=== PATIENT | female | born 1995 | race Caucasian/White ===

== ENCOUNTER 2018-05-01 13:21 | Emergency (ER) | payer OTHER ==
[2018-05-01] MEDS ORDERED: SODIUM CHLORIDE 0.9% 500 ML 500 ML IV STA (14:14)
[2018-05-01] MEDS ORDERED: KETOROLAC 30 MG/ML 1 ML VIAL IVP STA (14:14)
[2018-05-01 14:52] LABS: Basophils % (A) 0 %; Eosinophils # (A) 0.1 k/uL (0-0.7); Eosinophils % (A) 1 %; HCT 41.3 % (34.0-46.0); HGB 13.2 gm/dL (11.4-16.0); Lymphocytes % (A) 29 %; MCH 28.7 pg (25.0-35.0); MCHC 32.1 g/dL (31.0-37.0); MCV 89.5 fL (80.0-100.0); Mean Platelet Volume 7.6; Monocytes # (A) 0.3 k/uL (0-1.0); Monocytes % (A) 4 %; Neutrophils # (A) 4.6 k/uL (1.3-7.7); Neutrophils % (A) 65 %; Platelet Count 280 k/uL (150-450); RBC 4.61 m/uL (3.80-5.40); RDW 13.7 % (11.5-15.5); WBC 7.1 k/uL (3.8-10.6)
--- NOTE | 2018-05-01 14:56 | XR ---
EXAMINATION TYPE: XR chest 2V DATE OF EXAM: 05/01/2018 COMPARISON: NONE HISTORY: Chest pain TECHNIQUE: Frontal and lateral views of the chest are obtained. FINDINGS: There is no focal air space opacity. No evidence for pneumothorax. No pleural effusion. The cardiac silhouette size is within normal limits. The osseous structures are grossly intact. IMPRESSION: 1. No acute cardiopulmonary process.
[2018-05-01 14:58] LABS: Appearance,Urine Clear (Clear); Bilirubin,Urine Negative (Negative); Blood,Urine Negative (Negative); Color,Urine Yellow; Glucose,Urine (UA) Negative (Negative); Ketones,Urine Negative (Negative); Leukocyte Esterase,Urine Negative (Negative); Nitrite,Urine Negative (Negative); PH, Urine 6.5 (5.0-8.0); Protein,Urine Trace (Negative); Urobilinogen,Urine <2.0 mg/dL (<2.0)
[2018-05-01 15:01] LABS: ALT 32 U/L (9-52); AST 16 U/L (14-36); Albumin 4.4 g/dL (3.5-5.0); Alkaline Phosphatase 69 U/L (38-126); Amylase 38 U/L (30-110); Anion Gap 9 mmol/L; Blood Urea Nitrogen 14 mg/dL (7-17); Calcium 9.5 mg/dL (8.4-10.2); Carbon Dioxide 24 mmol/L (22-30); Chloride 109 mmol/L (98-107); Glucose 114 mg/dL (74-99); Lipase 60 U/L (23-300); Magnesium 1.9 mg/dL (1.6-2.3); Potassium 4.2 mmol/L (3.5-5.1); Sodium 142 mmol/L (137-145); Total Bilirubin 0.5 mg/dL (0.2-1.3); Total Protein 7.2 g/dL (6.3-8.2)
[2018-05-01 15:16] LABS: D-Dimer 0.18 mg/L FEU (<0.60); Partial Thromboplastin Time 26.3 sec (22.0-30.0); Prothrombin Time 10.8 sec (9.0-12.0)
[2018-05-01] MEDS ORDERED: IPRATROPIUM-ALBUTEROL 3 ML NEB INHALATION STA (15:50)
--- NOTE | 2018-05-01 16:16 | ED ---
General Adult HPI - General Chief complaint: Vaginal Bleeding Stated complaint: Chest pain,SOB, IUD-blood when wiping Time Seen by Provider: 05/01/18 13:43 Source: patient, RN notes reviewed Mode of arrival: wheelchair Limitations: no limitations - History of Present Illness Initial comments: 23-year-old female with out any significant past medical history presents to the emergency department for multiple complaints. Patient states she has had chest pain with shortness of breath for the past week. Patient states shortness of breath seems to worsen with exertion. She states chest pain is worse when taking a deep breath it feels like a stabbing pain. Patient states this is on the right side of the chest. Patient has had similar symptoms before and received an albuterol inhaler which helped her symptoms. She denies history of asthma. She does admit to smoking. Patient admits she has had a productive cough for about the past week as well. She denies fevers or chills. She denies congestion or sore throat patient also complaining of vaginal bleeding 2 weeks. Patient states she has an IUD placed and normally does not have bleeding. Patient denies any pain or cramping. Patient has no other complaints at this time including abdominal pain, nausea or vomiting, headache, or visual changes. - Related Data Home Medications Medication Instructions Recorded Confirmed Pseudoephedrine [Sudafed] 60 mg PO Q4H PRN 05/01/18 05/01/18 Previous Rx's Medication Instructions Recorded Albuterol Inhaler [Ventolin Hfa 1 - 2 puff INHALATION Q6HR PRN #1 05/01/18 Inhaler] inhaler predniSONE 50 mg PO DAILY #5 tablet 05/01/18 Allergies Allergy/AdvReac Type Severity Reaction Status Date / Time No Known Allergies Allergy Verified 05/01/18 14:27 Review of Systems ROS Statement: Those systems with pertinent positive or pertinent negative responses have been documented in the HPI. ROS Other: All systems not noted in ROS Statement are negative. Past Medical History Past Medical History: No Reported History History of Any Multi-Drug Resistant Organisms: None Reported Past Surgical History: No Surgical Hx Reported Past Psychological History: Anxiety, Bipolar, Depression Smoking Status: Current every day smoker Past Alcohol Use History: None Reported Past Drug Use History: None Reported General Exam Limitations: no limitations General appearance: alert, in no apparent distress Head exam: Present: atraumatic, normocephalic, normal inspection Eye exam: Present: normal appearance, PERRL, EOMI. Absent: scleral icterus, conjunctival injection, periorbital swelling ENT exam: Present: normal exam, normal oropharynx, mucous membranes moist, TM's normal bilaterally, normal external ear exam Neck exam: Present: normal inspection, full ROM. Absent: tenderness, meningismus, lymphadenopathy Respiratory exam: Present: normal lung sounds bilaterally. Absent: respiratory distress, wheezes, rales, rhonchi, stridor Cardiovascular Exam: Present: regular rate, normal rhythm, normal heart sounds. Absent: systolic murmur, diastolic murmur, rubs, gallop, clicks GI/Abdominal exam: Present: soft, normal bowel sounds. Absent: distended, tenderness, guarding, rebound, rigid External exam: Present: normal external exam. Absent: erythema, swelling, lesions, lacerations, ecchymosis Speculum exam: Present: normal speculum exam, other (IUD strings visualized). Absent: erythema, vaginal discharge, cervical discharge, vaginal bleeding, foreign body, tissue, laceration By manual exam: Present: normal by manual exam. Absent: cervical motion tenderness, adnexal tenderness, adnexal mass, uterine enlargement, uterine tenderness Neurological exam: Present: alert, oriented X3, CN II-XII intact, normal gait Psychiatric exam: Present: normal affect, normal mood Course Vital Signs 05/01/18 13:31 Temperature 98.2 F Pulse Rate 108 H Respiratory 16 Rate Blood Pressure 139/62 O2 Sat by Pulse 97 Oximetry - Reevaluation(s) Reevaluation #1: 05/01/18 16:25 Discussed smoking sensation for greater than 3 minutes EKG Findings - EKG Comments: EKG Findings:: Normal sinus rhythm, ventricular rate 84, DC int 146, QTC 450 Medical Decision Making - Medical Decision Making 23-year-old female without any past medical history presents for multiple complaints. Patient's main complaint is chest pain or shortness of breath. Patient does admit to a cough for the past week which is productive in nature. Patient states the chest pain is pleuritic and on the right side of her chest. Given patient's tachycardia lab work was obtained which showed a normal d-dimer, negative troponin. CBC CMP unremarkable. Chest x-ray negative. Patient was treated with steroid and albuterol inhaler as she states she has had this once in the past and it seemed to help. No history of asthma. Patient is a smoker. She was educated on greater than 3 minutes of smoking cessation. EKG shows a normal sinus rhythm, no evidence of ST elevation. Patient can follow up for this outpatient as it is likely related to cough. Patient was also complaining of vaginal bleeding without any pain. This is been ongoing for 2 weeks. Urine negative, hCG negative. Patient does have an IUD. I did do a pelvic exam and visualized the IUD strings. Patient will follow up with primary care and OB doing an. She will return here if she has any worsening symptoms. - Lab Data Result diagrams: 05/01/18 14:30 05/01/18 14:30 Lab Results 05/01/18 05/01/18 05/01/18 Range/Units 14:30 14:30 14:30 WBC 7.1 (3.8-10.6) k/uL RBC 4.61 (3.80-5.40) m/uL Hgb 13.2 (11.4-16.0) gm/dL Hct 41.3 (34.0-46.0) % MCV 89.5 (80.0-100.0) fL MCH 28.7 (25.0-35.0) pg MCHC 32.1 (31.0-37.0) g/dL RDW 13.7 (11.5-15.5) % Plt Count 280 (150-450) k/uL Neutrophils % 65 % Lymphocytes % 29 % Monocytes % 4 % Eosinophils % 1 % Basophils % 0 % Neutrophils # 4.6 (1.3-7.7) k/uL Lymphocytes # 2.0 (1.0-4.8) k/uL Monocytes # 0.3 (0-1.0) k/uL Eosinophils # 0.1 (0-0.7) k/uL Basophils # 0.0 (0-0.2) k/uL PT 10.8 (9.0-12.0) sec INR 1.0 (<1.2) APTT 26.3 (22.0-30.0) sec D-Dimer 0.18 (<0.60) mg/L FEU Sodium 142 (137-145) mmol/L Potassium 4.2 (3.5-5.1) mmol/L Chloride 109 H (98-107) mmol/L Carbon Dioxide 24 (22-30) mmol/L Anion Gap 9 mmol/L BUN 14 (7-17) mg/dL Creatinine 0.71 (0.52-1.04) mg/dL Est GFR (CKD-EPI)AfAm >90 (>60 ml/min/1.73 sqM) Est GFR (CKD-EPI)NonAf >90 (>60 ml/min/1.73 sqM) Glucose 114 H (74-99) mg/dL Calcium 9.5 (8.4-10.2) mg/dL Magnesium 1.9 (1.6-2.3) mg/dL Total Bilirubin 0.5 (0.2-1.3) mg/dL AST 16 (14-36) U/L ALT 32 (9-52) U/L Alkaline Phosphatase 69 (38-126) U/L Troponin I (0.000-0.034) ng/mL Total Protein 7.2 (6.3-8.2) g/dL Albumin 4.4 (3.5-5.0) g/dL Amylase 38 (30-110) U/L Lipase 60 (23-300) U/L Urine Color Urine Appearance (Clear) Urine pH (5.0-8.0) Ur Specific [place] (1.001-1.035) Urine Protein (Negative) Urine Glucose (UA) (Negative) Urine Ketones (Negative) Urine Blood (Negative) Urine Nitrite (Negative) Urine Bilirubin (Negative) Urine Urobilinogen (<2.0) mg/dL Ur Leukocyte Esterase (Negative) Urine HCG, Qual (Not Detectd) 05/01/18 05/01/18 05/01/18 Range/Units 14:30 14:30 14:30 WBC (3.8-10.6) k/uL RBC (3.80-5.40) m/uL Hgb (11.4-16.0) gm/dL Hct (34.0-46.0) % MCV (80.0-100.0) fL MCH (25.0-35.0) pg MCHC (31.0-37.0) g/dL RDW (11.5-15.5) % Plt Count (150-450) k/uL Neutrophils % % Lymphocytes % % Monocytes % % Eosinophils % % Basophils % % Neutrophils # (1.3-7.7) k/uL Lymphocytes # (1.0-4.8) k/uL Monocytes # (0-1.0) k/uL Eosinophils # (0-0.7) k/uL Basophils # (0-0.2) k/uL PT (9.0-12.0) sec INR (<1.2) APTT (22.0-30.0) sec D-Dimer (<0.60) mg/L FEU Sodium (137-145) mmol/L Potassium (3.5-5.1) mmol/L Chloride (98-107) mmol/L Carbon Dioxide (22-30) mmol/L Anion Gap mmol/L BUN (7-17) mg/dL Creatinine (0.52-1.04) mg/dL Est GFR (CKD-EPI)AfAm (>60 ml/min/1.73 sqM) Est GFR (CKD-EPI)NonAf (>60 ml/min/1.73 sqM) Glucose (74-99) mg/dL Calcium (8.4-10.2) mg/dL Magnesium (1.6-2.3) mg/dL Total Bilirubin (0.2-1.3) mg/dL AST (14-36) U/L ALT (9-52) U/L Alkaline Phosphatase (38-126) U/L Troponin I <0.012 (0.000-0.034) ng/mL Total Protein (6.3-8.2) g/dL Albumin (3.5-5.0) g/dL Amylase (30-110) U/L Lipase (23-300) U/L Urine Color Yellow Urine Appearance Clear (Clear) Urine pH 6.5 (5.0-8.0) Ur Specific [place] 1.020 (1.001-1.035) Urine Protein Trace H (Negative) Urine Glucose (UA) Negative (Negative) Urine Ketones Negative (Negative) Urine Blood Negative (Negative) Urine Nitrite Negative (Negative) Urine Bilirubin Negative (Negative) Urine Urobilinogen <2.0 (<2.0) mg/dL Ur Leukocyte Esterase Negative (Negative) Urine HCG, Qual Not Detected (Not Detectd) Disposition Clinical Impression: Cough, Pleuritic chest pain Disposition: HOME SELF-CARE Condition: Good Instructions (If sedation given, give patient instructions): Acute Bronchitis (ED) Additional Instructions: Please take steroid and use albuterol inhaler as needed. Please follow-up with primary care in 1-2 days. Please return here to the emergency Department if he develop any worsening symptoms. Prescriptions: predniSONE 50 mg PO DAILY #5 tablet Albuterol Inhaler [Ventolin Hfa Inhaler] 1 - 2 puff INHALATION Q6HR PRN #1 inhaler PRN Reason: Shortness Of Breath Is patient prescribed a controlled substance at d/c from ED?: No Referrals: Ana Lopez MD [STAFF PHYSICIAN] - 1-2 days Time of Disposition: 16:15
[2018-05-01 16:35] VITALS: BP 142/82; PULSE 78; RESP 18; TEMP 97.9
== END 2018-05-01 16:34 | disposition home or self-care (01) ==
LOC: EC 13:21
DX: R07.81 Pleurodynia (principal); R05 Cough; R06.02 Shortness of breath; N93.9 Abnormal uterine and vaginal bleeding, unspecified; F17.200 Nicotine dependence, unspecified, uncomplicated; Z71.6 Tobacco abuse counseling; Z97.5 Presence of (intrauterine) contraceptive device; Z53.8 Procedure and treatment not carried out for other reasons; Z32.02 Encounter for pregnancy test, result negative
CPT/HCPCS: 36415; 71046; 80053; 81003; 81025; 82150; 83690; 83735; 84484; 85025; 85379; 85610; 85730; 93005; 96361; 96374; 99284; 99406

== ENCOUNTER 2020-01-11 07:01 | Emergency (ER) | payer OTHER ==
[2020-01-11] MEDS ORDERED: ONDANSETRON 4 MG/2 ML VIAL IVP STA (07:39)
[2020-01-11] MEDS ORDERED: SODIUM CHLORIDE 0.9% 1,000 ML IV STA (07:39)
[2020-01-11] MEDS ORDERED: FAMOTIDINE 20 MG/2 ML VIAL IV STA (07:40)
--- NOTE | 2020-01-11 07:42 | ED ---
General Adult HPI - General Chief complaint: Abdominal Pain Stated complaint: Abdominal pain Time Seen by Provider: 01/11/20 07:04 Source: patient, RN notes reviewed Mode of arrival: ambulatory Limitations: no limitations - History of Present Illness Initial comments: Patient is a pleasant 24-year-old female presenting to the emergency Department with complaints of abdominal discomfort. Onset of symptoms was 3 days ago. Last bowel movement was around 3 days ago. Patient normally has 4-5 bowel movements per day. Patient has had some nausea vomiting. Abdominal discomfort is diffuse, more upper. No fevers. Patient has tried milk of magnesia as well as 2 enemas and 1 suppository without improvement. - Related Data Previous Rx's Medication Instructions Recorded Dicyclomine [Bentyl] 20 mg PO QID PRN #20 tablet 01/11/20 Ondansetron Odt [Zofran Odt] 4 mg PO Q8HR PRN #10 tab 01/11/20 Allergies Allergy/AdvReac Type Severity Reaction Status Date / Time No Known Allergies Allergy Verified 01/11/20 08:04 Review of Systems ROS Statement: Those systems with pertinent positive or pertinent negative responses have been documented in the HPI. ROS Other: All systems not noted in ROS Statement are negative. Constitutional: Denies: fever Eyes: Denies: eye pain ENT: Denies: ear pain Respiratory: Denies: cough Cardiovascular: Denies: chest pain Endocrine: Denies: fatigue Gastrointestinal: Reports: as per HPI, abdominal pain, nausea, vomiting, constipation Genitourinary: Denies: dysuria Musculoskeletal: Denies: back pain Skin: Denies: rash Neurological: Denies: weakness Past Medical History Past Medical History: No Reported History History of Any Multi-Drug Resistant Organisms: None Reported Past Surgical History: Section, Cholecystectomy Past Psychological History: Anxiety, Bipolar, Depression Smoking Status: Current every day smoker Past Alcohol Use History: None Reported Past Drug Use History: Marijuana General Exam Limitations: no limitations General appearance: alert Head exam: Present: normocephalic Eye exam: Present: normal appearance Neck exam: Present: normal inspection Respiratory exam: Present: normal lung sounds bilaterally Cardiovascular Exam: Present: regular rate, normal rhythm Expanded Peripheral pulses: 2+: Dorsalis Pedis (R), Dorsalis Pedis (L) GI/Abdominal exam: Present: soft, tenderness (Mild diffuse tenderness), normal bowel sounds. Absent: distended, guarding, rebound, rigid, pulsatile mass Extremities exam: Present: normal inspection Neurological exam: Present: alert Psychiatric exam: Present: normal affect, normal mood Skin exam: Present: normal color Course Vital Signs 01/11/20 01/11/20 07:04 08:52 Temperature 98.4 F Pulse Rate 80 75 Respiratory 22 18 Rate Blood Pressure 143/102 126/63 O2 Sat by Pulse 96 100 Oximetry Medical Decision Making - Medical Decision Making Patient reevaluated and resting comfortably in bed. Patient states discomfort has improved however is receptive to further pain medication. Patient updated on results and need for follow-up. Patient is receptive to testing for covid. Patient is aware of need to self quarantined pending results. Patient also updated on need for follow-up and need to return if symptoms worsen. - Lab Data Result diagrams: 01/11/20 07:42 01/11/20 07:42 Lab Results 01/11/20 01/11/20 01/11/20 Range/Units 07:42 07:42 07:42 WBC 12.6 H (3.8-10.6) k/uL RBC 4.69 (3.80-5.40) m/uL Hgb 14.3 (11.4-16.0) gm/dL Hct 41.9 (34.0-46.0) % MCV 89.3 (80.0-100.0) fL MCH 30.5 (25.0-35.0) pg MCHC 34.1 (31.0-37.0) g/dL RDW 13.5 (11.5-15.5) % Plt Count 321 (150-450) k/uL MPV 7.3 Neutrophils % 72 % Lymphocytes % 22 % Monocytes % 4 % Eosinophils % 1 % Basophils % 0 % Neutrophils # 9.0 H (1.3-7.7) k/uL Lymphocytes # 2.7 (1.0-4.8) k/uL Monocytes # 0.5 (0-1.0) k/uL Eosinophils # 0.1 (0-0.7) k/uL Basophils # 0.0 (0-0.2) k/uL PT 9.6 (9.0-12.0) sec INR 0.9 (<1.2) APTT 25.5 (22.0-30.0) sec Sodium (137-145) mmol/L Potassium (3.5-5.1) mmol/L Chloride (98-107) mmol/L Carbon Dioxide (22-30) mmol/L Anion Gap mmol/L BUN (7-17) mg/dL Creatinine (0.52-1.04) mg/dL Est GFR (CKD-EPI)AfAm (>60 ml/min/1.73 sqM) Est GFR (CKD-EPI)NonAf (>60 ml/min/1.73 sqM) Glucose (74-99) mg/dL Calcium (8.4-10.2) mg/dL Total Bilirubin (0.2-1.3) mg/dL AST (14-36) U/L ALT (4-34) U/L Alkaline Phosphatase (38-126) U/L Total Protein (6.3-8.2) g/dL Albumin (3.5-5.0) g/dL Amylase (30-110) U/L Lipase (23-300) U/L Urine Color Colorless Urine Appearance Clear (Clear) Urine pH 8.0 (5.0-8.0) Ur Specific [place] 1.006 (1.001-1.035) Urine Protein Negative (Negative) Urine Glucose (UA) Negative (Negative) Urine Ketones Negative (Negative) Urine Blood Negative (Negative) Urine Nitrite Negative (Negative) Urine Bilirubin Negative (Negative) Urine Urobilinogen <2.0 (<2.0) mg/dL Ur Leukocyte Esterase Negative (Negative) Urine HCG, Qual (Not Detectd) 01/11/20 01/11/20 Range/Units 07:42 07:42 WBC (3.8-10.6) k/uL RBC (3.80-5.40) m/uL Hgb (11.4-16.0) gm/dL Hct (34.0-46.0) % MCV (80.0-100.0) fL MCH (25.0-35.0) pg MCHC (31.0-37.0) g/dL RDW (11.5-15.5) % Plt Count (150-450) k/uL MPV Neutrophils % % Lymphocytes % % Monocytes % % Eosinophils % % Basophils % % Neutrophils # (1.3-7.7) k/uL Lymphocytes # (1.0-4.8) k/uL Monocytes # (0-1.0) k/uL Eosinophils # (0-0.7) k/uL Basophils # (0-0.2) k/uL PT (9.0-12.0) sec INR (<1.2) APTT (22.0-30.0) sec Sodium 139 (137-145) mmol/L Potassium 4.3 (3.5-5.1) mmol/L Chloride 107 (98-107) mmol/L Carbon Dioxide 25 (22-30) mmol/L Anion Gap 7 mmol/L BUN 14 (7-17) mg/dL Creatinine 1.02 (0.52-1.04) mg/dL Est GFR (CKD-EPI)AfAm >90 (>60 ml/min/1.73 sqM) Est GFR (CKD-EPI)NonAf 79 (>60 ml/min/1.73 sqM) Glucose 104 H (74-99) mg/dL Calcium 9.1 (8.4-10.2) mg/dL Total Bilirubin 0.6 (0.2-1.3) mg/dL AST 24 (14-36) U/L ALT 29 (4-34) U/L Alkaline Phosphatase 85 (38-126) U/L Total Protein 7.0 (6.3-8.2) g/dL Albumin 4.2 (3.5-5.0) g/dL Amylase 52 (30-110) U/L Lipase 62 (23-300) U/L Urine Color Urine Appearance (Clear) Urine pH (5.0-8.0) Ur Specific [place] (1.001-1.035) Urine Protein (Negative) Urine Glucose (UA) (Negative) Urine Ketones (Negative) Urine Blood (Negative) Urine Nitrite (Negative) Urine Bilirubin (Negative) Urine Urobilinogen (<2.0) mg/dL Ur Leukocyte Esterase (Negative) Urine HCG, Qual Not Detected (Not Detectd) - Radiology Data Radiology results: report reviewed (CT abdomen pelvis shows possible uncomplicated colitis versus poor distention. No bowel obstruction. Small peripheral groundglass opacity left lung base,), image reviewed (Abdominal x-ray shows no acute process) Disposition Clinical Impression: Abdominal pain Disposition: HOME SELF-CARE Condition: Stable Instructions (If sedation given, give patient instructions): Abdominal Pain (ED) Additional Instructions: Please follow-up with primary care physician in the next couple days for recheck. Return for uncontrolled vomiting, increased pain, fevers, worsening or changing symptoms, difficulty breathing or other concerns. Test for coronavirus will likely take a couple of days, please self quarantine until results are reported as negative. Prescription sent to pharmacy, [facility] Prescriptions: Dicyclomine [Bentyl] 20 mg PO QID PRN #20 tablet PRN Reason: Pain Ondansetron Odt [Zofran Odt] 4 mg PO Q8HR PRN #10 tab PRN Reason: Nausea Is patient prescribed a controlled substance at d/c from ED?: No Referrals: Annel Sears MD [STAFF PHYSICIAN] - 1-2 days Time of Disposition: 11:12
[2020-01-11 07:59] LABS: Appearance,Urine Clear (Clear); Bilirubin,Urine Negative (Negative); Blood,Urine Negative (Negative); Color,Urine Colorless; Glucose,Urine (UA) Negative (Negative); Ketones,Urine Negative (Negative); Leukocyte Esterase,Urine Negative (Negative); Nitrite,Urine Negative (Negative); Protein,Urine Negative (Negative); Specific Gravity,Urine 1.006 (1.001-1.035); Urobilinogen,Urine <2.0 mg/dL (<2.0)
[2020-01-11 08:00] LABS: Basophils % (A) 0 %; Eosinophils # (A) 0.1 k/uL (0-0.7); Eosinophils % (A) 1 %; HCT 41.9 % (34.0-46.0); HGB 14.3 gm/dL (11.4-16.0); Lymphocytes # (A) 2.7 k/uL (1.0-4.8); Lymphocytes % (A) 22 %; MCH 30.5 pg (25.0-35.0); MCHC 34.1 g/dL (31.0-37.0); MCV 89.3 fL (80.0-100.0); Mean Platelet Volume 7.3; Monocytes # (A) 0.5 k/uL (0-1.0); Monocytes % (A) 4 %; Neutrophils % (A) 72 %; Platelet Count 321 k/uL (150-450); RBC 4.69 m/uL (3.80-5.40); RDW 13.5 % (11.5-15.5); WBC 12.6 k/uL (3.8-10.6)
[2020-01-11 08:07] LABS: INR 0.9 (<1.2); Partial Thromboplastin Time 25.5 sec (22.0-30.0); Prothrombin Time 9.6 sec (9.0-12.0)
[2020-01-11 08:14] LABS: ALT 29 U/L (4-34); AST 24 U/L (14-36); African American GFR (CKD) >90 (>60 ml/min/1.73 sqM); Albumin 4.2 g/dL (3.5-5.0); Alkaline Phosphatase 85 U/L (38-126); Amylase 52 U/L (30-110); Anion Gap 7 mmol/L; Blood Urea Nitrogen 14 mg/dL (7-17); Calcium 9.1 mg/dL (8.4-10.2); Carbon Dioxide 25 mmol/L (22-30); Chloride 107 mmol/L (98-107); Glucose 104 mg/dL (74-99); Lipase 62 U/L (23-300); Non-African American GFR(CKD) 79 (>60 ml/min/1.73 sqM); Potassium 4.3 mmol/L (3.5-5.1); Sodium 139 mmol/L (137-145); Total Bilirubin 0.6 mg/dL (0.2-1.3)
--- NOTE | 2020-01-11 08:20 | XR ---
2 view abdomen HISTORY: Abdomen pain 2 views the abdomen submitted, no comparisons Lung bases are clear. Surgical clips are present right upper quadrant. There is no evident bowel obst ruction or pneumoperitoneum. Bone mineralization is normal. No pathologic calcification is evident. T here is intrauterine contraceptive device within the pelvis. IMPRESSION: Postprocedural changes.
[2020-01-11 08:53] VITALS: RESP 18
[2020-01-11] MEDS ORDERED: LACTULOSE 20 GM/30 ML CUP PO ONE (10:03)
[2020-01-11] MEDS ORDERED: MORPHINE SULFATE 4 MG/ML SYRINGE IVP STA ×2 (10:04→11:10)
--- NOTE | 2020-01-11 10:56 | CT ---
EXAMINATION TYPE: CT abdomen pelvis wo con DATE OF EXAM: 01/11/2020 HISTORY: Abd pain with nausea and vomiting. Last bowel movement 4 days ago. 2 adenomas given prior to scanning. CT DLP: 1001 mGycm. Automated Exposure Control for Dose Reduction was Utilized. TECHNIQUE: CT scan of the abdomen and pelvis is performed without oral and without IV contrast. COMPARISON: Abdominal x-ray earlier today. FINDINGS: Within the limitations of a non-contrast study, the following observations are made. LUNG BASES: Small nonspecific focus of peripheral groundglass opacity left lung base on axial image 8 . LIVER/GB: Cholecystectomy clips redemonstrated. PANCREAS: No significant abnormality is seen. SPLEEN: No significant abnormality is seen. ADRENALS: No significant abnormality is seen. KIDNEYS: No renal stones or hydronephrosis seen bilaterally. BOWEL: Some hyperdense material in stomach could reflect ingested food product or supplement such as oral laxative. No suspicious small or large bowel dilatation. Normal-appearing appendix seen from cec um. Mild to moderate wall thickening suspected in the left and sigmoid colon through the rectum witho ut significant surrounding fat stranding. GENITAL ORGANS: Anteverted uterus with central metallic IUD. Ovaries symmetric and normal in size axi al image 75. No free fluid pelvis. LYMPH NODES: No greater than 1cm abdominal or pelvic lymph nodes are appreciated. OSSEOUS STRUCTURES: No significant abnormality is seen. OTHER: No significant additional abnormality is seen. IMPRESSION: 1. Possible mild uncomplicated distal acute colitis versus product of poor distention. Correlate clin ically. No bowel obstruction. 2. Small focus of peripheral groundglass opacity left lung base, in the current environment consider covid-19 testing based on clinical correlation.
[2020-01-11 11:47] VITALS: BP 138/101; PULSE 85; TEMP 98.3
== END 2020-01-11 11:46 | disposition home or self-care (01) ==
LOC: EC 07:01
DX: R10.10 Upper abdominal pain, unspecified (principal); F17.200 Nicotine dependence, unspecified, uncomplicated; Z20.828 Contact with and (suspected) exposure to other viral communicable diseases
CPT/HCPCS: 99284; 96374; 96375 ×2; 96376; 96361; 36415; 80053; 82150; 83690; 85025; 85610; 85730; 81003; 81025; 74019; 74176; U0003; J2270; J2405

== ENCOUNTER 2020-01-12 16:09 | Emergency (ER) | payer OTHER ==
[2020-01-12 16:16] VITALS: RESP 18; TEMP 98.3
[2020-01-12] MEDS ORDERED: SODIUM CHLORIDE 0.9% 1,000 ML IV STA (16:36)
[2020-01-12] MEDS ORDERED: ONDANSETRON 4 MG/2 ML VIAL IVP STA (16:36)
[2020-01-12] MEDS ORDERED: diphenhydrAMINE 50 MG/ML 1 ML VIAL IVP STA (17:10)
[2020-01-12] MEDS ORDERED: METOCLOPRAMIDE 5 MG/ML 2 ML VIAL IVP STA (17:10)
[2020-01-12] MEDS ORDERED: HYDROmorphone 1 MG/ML 1 ML SYRINGE IVP STA (17:11)
[2020-01-12 17:16] LABS: Basophils # (A) 0.1 k/uL (0-0.2); Basophils % (A) 1 %; Eosinophils # (A) 0.1 k/uL (0-0.7); Eosinophils % (A) 2 %; HCT 40.1 % (34.0-46.0); HGB 13.7 gm/dL (11.4-16.0); Lymphocytes # (A) 2.8 k/uL (1.0-4.8); Lymphocytes % (A) 30 %; MCH 30.5 pg (25.0-35.0); MCHC 34.1 g/dL (31.0-37.0); MCV 89.6 fL (80.0-100.0); Mean Platelet Volume 7.2; Monocytes # (A) 0.4 k/uL (0-1.0); Monocytes % (A) 5 %; Neutrophils # (A) 5.6 k/uL (1.3-7.7); Neutrophils % (A) 61 %; Platelet Count 278 k/uL (150-450); RBC 4.48 m/uL (3.80-5.40); RDW 13.5 % (11.5-15.5); WBC 9.3 k/uL (3.8-10.6)
[2020-01-12 17:26] LABS: Glucose 100 mg/dL (74-99); Total Protein 6.7 g/dL (6.3-8.2)
[2020-01-12 17:27] LABS: ALT 27 U/L (4-34); AST 23 U/L (14-36); African American GFR (CKD) >90 (>60 ml/min/1.73 sqM); Alkaline Phosphatase 73 U/L (38-126); Anion Gap 5 mmol/L; Blood Urea Nitrogen 12 mg/dL (7-17); Calcium 9.2 mg/dL (8.4-10.2); Carbon Dioxide 26 mmol/L (22-30); Chloride 107 mmol/L (98-107); Lipase 80 U/L (23-300); Non-African American GFR(CKD) >90 (>60 ml/min/1.73 sqM); Potassium 4.2 mmol/L (3.5-5.1); Sodium 138 mmol/L (137-145); Total Bilirubin 0.4 mg/dL (0.2-1.3)
[2020-01-12] MEDS ORDERED: ACET/COD 300 MG/30 MG STARTER PACK 6 TAB BTL PO STA (18:55)
--- NOTE | 2020-01-12 18:55 | ED ---
Abdominal Pain HPI - General Chief Complaint: Abdominal Pain Stated Complaint: Abd Pain Time Seen by Provider: 01/12/20 16:16 Source: EMS Mode of arrival: EMS Limitations: no limitations - History of Present Illness Initial Comments: 24-year-old female presenting to the emergency department with chief complaint of abdominal pain. Patient states she was in the emergency department yesterday and diagnosed with IBS. States she was discharged with Zofran and Bentyl which provided no significant improvement in his symptoms today. She reports nausea and multiple episodes of nonbilious and nonbloody vomiting. She states the pain has also increased. Reports the pain is more sharp in nature, diffuse and it feels like a burning sensation in the epigastric region. She denies any vaginal or urinary symptoms. Denies hematuria, hematochezia or melena .She does report history of constipation and she is concerned for "blockage" rotation. Denies chest pain shortness of breath - Related Data Home Medications Medication Instructions Recorded Confirmed Dicyclomine [Bentyl] 20 mg PO QID PRN 01/12/20 01/12/20 Previous Rx's Medication Instructions Recorded Ondansetron Odt [Zofran Odt] 4 mg PO Q8HR PRN #10 tab 01/11/20 Triamcinolone 0.025% Cream 1 applic TOPICAL BID #1 bottle 01/12/20 [Kenalog 0.025% Cream] Allergies Allergy/AdvReac Type Severity Reaction Status Date / Time No Known Allergies Allergy Verified 01/12/20 17:43 Review of Systems ROS Statement: Those systems with pertinent positive or pertinent negative responses have been documented in the HPI. ROS Other: All systems not noted in ROS Statement are negative. Past Medical History Past Medical History: No Reported History History of Any Multi-Drug Resistant Organisms: None Reported Past Surgical History: Section, Cholecystectomy Past Psychological History: Anxiety, Bipolar, Depression Smoking Status: Current every day smoker Past Alcohol Use History: None Reported Past Drug Use History: Marijuana General Exam Limitations: no limitations General appearance: alert, in no apparent distress, obese Head exam: Present: atraumatic, normocephalic, normal inspection Eye exam: Present: normal appearance, PERRL, EOMI. Absent: scleral icterus Pupils: Present: normal accommodation ENT exam: Present: normal exam, mucous membranes moist. Absent: normal oropharynx Neck exam: Present: normal inspection, full ROM. Absent: tenderness, meningismus, lymphadenopathy Respiratory exam: Present: normal lung sounds bilaterally. Absent: respiratory distress, wheezes, rales Cardiovascular Exam: Present: regular rate, normal rhythm, normal heart sounds. Absent: bradycardia, tachycardia GI/Abdominal exam: Present: soft, tenderness (No significant pain at this time), normal bowel sounds. Absent: distended, guarding, rebound, rigid, diminished bowel sounds, hyperactive bowel sounds, hypoactive bowel sounds, organomegaly, mass, bruit, pulsatile mass, hernia Extremities exam: Present: normal inspection (Examination of the right third digit, mild.), full ROM, normal capillary refill, other (+2 ulnar and radial p ulses bilaterally.). Absent: tenderness, pedal edema, joint swelling, calf tenderness Back exam: Present: normal inspection, full ROM. Absent: tenderness, CVA tenderness (R), CVA tenderness (L), paraspinal tenderness, vertebral tenderness Neurological exam: Present: alert, oriented X3, normal gait Psychiatric exam: Present: normal affect, normal mood Skin exam: Present: warm, dry, intact, normal color Course Vital Signs 01/12/20 16:13 Temperature 98.3 F Pulse Rate 70 Respiratory 18 Rate Blood Pressure 137/75 O2 Sat by Pulse 96 Oximetry Medical Decision Making - Medical Decision Making 24-year-old female presenting to the emergency department with chief complaint of abdominal pain. On physical examination, patient does not have any abdominal pain to palpation. Due to laboratory error, the urine sample was lost. Patient would not give another urine sample. She was given an fluids, antiemetics and analgesia. Patient was ready given 10 mg of morphine in the ambulance. Patient also reports the morning analgesia, she was given 1 mg of Dilaudid. On reevaluation, patient reports improvement of symptoms. States that she feels better actually after having one vomiting episode. CBC CMP is unremarkable. CT performed yesterday revealed possible mild uncomplicated distal acute colitis versus Procter for distention. Patient will be given a Tylenol 3 starter pack. She also requested a steroid for eczema on the finger. Patient was advised to follow with a GI specialist. Strict return parameters were thoroughly discussed the patient is an attending agreeable. Case discussed physician. - Lab Data Result diagrams: 01/12/20 17:03 01/12/20 17:03 Lab Results 01/12/20 01/12/20 Range/Units 17:03 17:03 WBC 9.3 (3.8-10.6) k/uL RBC 4.48 (3.80-5.40) m/uL Hgb 13.7 (11.4-16.0) gm/dL Hct 40.1 (34.0-46.0) % MCV 89.6 (80.0-100.0) fL MCH 30.5 (25.0-35.0) pg MCHC 34.1 (31.0-37.0) g/dL RDW 13.5 (11.5-15.5) % Plt Count 278 (150-450) k/uL MPV 7.2 Neutrophils % 61 % Lymphocytes % 30 % Monocytes % 5 % Eosinophils % 2 % Basophils % 1 % Neutrophils # 5.6 (1.3-7.7) k/uL Lymphocytes # 2.8 (1.0-4.8) k/uL Monocytes # 0.4 (0-1.0) k/uL Eosinophils # 0.1 (0-0.7) k/uL Basophils # 0.1 (0-0.2) k/uL Sodium 138 (137-145) mmol/L Potassium 4.2 (3.5-5.1) mmol/L Chloride 107 (98-107) mmol/L Carbon Dioxide 26 (22-30) mmol/L Anion Gap 5 mmol/L BUN 12 (7-17) mg/dL Creatinine 0.80 (0.52-1.04) mg/dL Est GFR (CKD-EPI)AfAm >90 (>60 ml/min/1.73 sqM) Est GFR (CKD-EPI)NonAf >90 (>60 ml/min/1.73 sqM) Glucose 100 H (74-99) mg/dL Calcium 9.2 (8.4-10.2) mg/dL Total Bilirubin 0.4 (0.2-1.3) mg/dL AST 23 (14-36) U/L ALT 27 (4-34) U/L Alkaline Phosphatase 73 (38-126) U/L Total Protein 6.7 (6.3-8.2) g/dL Albumin 4.0 (3.5-5.0) g/dL Lipase 80 (23-300) U/L Disposition Clinical Impression: Abdominal pain, Nausea & vomiting Disposition: HOME SELF-CARE Condition: Stable Instructions (If sedation given, give patient instructions): Abdominal Pain (ED) Additional Instructions: Take prescribed medication as directed. Follow up with a GI specialist. Return to emergency department if symptoms worsen. Prescriptions: Triamcinolone 0.025% Cream [Kenalog 0.025% Cream] 1 applic TOPICAL BID #1 bottle Is patient prescribed a controlled substance at d/c from ED?: No Referrals: None,Stated [Primary Care Provider] - 1-2 days Cherri Suazo MD [STAFF PHYSICIAN] - 1-2 days Anthony Butler MD [STAFF PHYSICIAN] - 1-2 days Andrez Dos Santos MD [REFERRING] - 1-2 days Michael Whitney MD [STAFF PHYSICIAN] - 1-2 days Radha De Anda MD [REFERRING] - 1-2 days Time of Disposition: 18:57
[2020-01-12 19:06] VITALS: BP 139/92; PULSE 88
== END 2020-01-12 19:04 | disposition home or self-care (01) ==
LOC: EC 16:09
DX: R10.9 Unspecified abdominal pain (principal); R11.2 Nausea with vomiting, unspecified; K58.9 Irritable bowel syndrome, unspecified; L30.9 Dermatitis, unspecified; F17.200 Nicotine dependence, unspecified, uncomplicated; Z90.49 Acquired absence of other specified parts of digestive tract
CPT/HCPCS: 36415; 80053; 83690; 85025; 99284; 96374; 96375; J2405; J1170

== ENCOUNTER 2020-03-19 17:06 | Emergency (ER) | payer OTHER ==
[2020-03-19] MEDS ORDERED: LORazepam 1 MG TAB PO STA (17:31)
--- NOTE | 2020-03-19 17:59 | XR ---
EXAMINATION TYPE: XR chest 2V DATE OF EXAM: 03/19/2020 COMPARISON: 05/01/2018 HISTORY: Short of breath TECHNIQUE: FINDINGS: Heart and mediastinum are normal. Lungs are clear. Diaphragm is normal. Bony thorax appears normal. IMPRESSION: Normal chest. No change.
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
[2020-03-19 18:22] VITALS: BP 132/84; PULSE 74; RESP 20
[2020-03-19 18:45] VITALS: TEMP 98.3
== END 2020-03-19 18:40 | disposition home or self-care (01) ==
LOC: EC 17:06
DX: J81.0 Acute pulmonary edema (principal); F41.9 Anxiety disorder, unspecified; F17.200 Nicotine dependence, unspecified, uncomplicated
CPT/HCPCS: 71046; 93005; 99285

== ENCOUNTER 2020-04-19 16:30 | Emergency (ER) | payer OTHER ==
[2020-04-19 16:42] VITALS: BP 120/80; PULSE 101; RESP 18; TEMP 98
[2020-04-19] MEDS ORDERED: LORazepam 1 MG TAB PO STA (18:13)
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
== END 2020-04-19 18:36 | disposition home or self-care (01) ==
LOC: EC 16:30
DX: F41.9 Anxiety disorder, unspecified (principal); F17.200 Nicotine dependence, unspecified, uncomplicated
CPT/HCPCS: 99283

== ENCOUNTER 2020-07-07 11:38 | Emergency (ER) | payer OTHER ==
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
[2020-07-07] MEDS ORDERED: ALPRAZolam 1 MG TAB PO STA ×2 (12:41→15:12)
[2020-07-07 13:25] LABS: Amphetamine Screen,Urine Not Detected (NotDetected); Barbiturate Screen,Urine Not Detected (NotDetected); Benzodiazepines Screen,Urine Not Detected (NotDetected); Cocaine Screen,Urine Not Detected (NotDetected); Methadone Screen, Urine Not Detected (NotDetected); Opiate Screen,Urine Not Detected (NotDetected); Oxycodone Screen, Urine Not Detected (NotDetected); Phencyclidine Screen,Urine Not Detected (NotDetected); Tricyclic Antidepressant,Urine Not Detected (NotDetected); Urn Cannabinoid Scrn Detected (NotDetected)
[2020-07-07 15:34] VITALS: BP 143/90; PULSE 78; RESP 16; TEMP 97.5
== END 2020-07-07 15:35 | disposition home or self-care (01) ==
LOC: EC 11:38
DX: F41.9 Anxiety disorder, unspecified (principal); F32.9 Major depressive disorder, single episode, unspecified; F17.200 Nicotine dependence, unspecified, uncomplicated; F12.90 Cannabis use, unspecified, uncomplicated; Z90.49 Acquired absence of other specified parts of digestive tract
CPT/HCPCS: 80306; 82075; 99284

== ENCOUNTER 2020-07-11 21:24 | Emergency (ER) | payer OTHER ==
[2020-07-11 21:39] VITALS: BP 136/89; PULSE 108; RESP 20; TEMP 97.8
--- NOTE | 2020-07-11 21:47 | ED ---
Anxiety HPI - General Chief Complaint: Anxiety Stated Complaint: anxiety Time Seen by Provider: 07/11/20 21:44 Source: patient, RN notes reviewed, old records reviewed Mode of arrival: ambulatory Limitations: physical limitation - History of Present Illness Initial Comments: This is a 25-year-old female providing story of significant stress. Patient has severe anxiety with recent inpatient hospitalization. Patient does have schedule psychiatric appointment. Patient states her anxiety medication home was not helping even if she takes more than one. Patient states her stress levels of severe due to recent ongoing life stress. Patient's crying and tearful. Difficult to obtain significant history due to her severe anxiety currently MD Complaint: anxiety, heart racing, shortness of breath -: week(s) Symptoms: palpitations, sense of impending doom Place: home Previous History of Same: Yes Severity: severe Quality: similar to prior episodes Provoking factors: emotional stress Improves With: nothing Worsens With: nothing Associated symptoms: palpitations - Related Data Home Medications: Home Medications Medication Instructions Recorded Confirmed Albuterol Sulfate [Proair Hfa] 1 - 2 puff INHALATION RT-Q6H PRN 07/07/20 07/07/20 Escitalopram [Lexapro] 10 mg PO DAILY 07/07/20 07/07/20 LORazepam [Ativan] 0.5 mg PO TID PRN 07/07/20 07/07/20 Previous Rx's Medication Instructions Recorded ALPRAZolam [Xanax] 1 mg PO Q8HR PRN 3 Days #9 tab 07/11/20 LORazepam [Ativan] 1 mg PO TID 3 Days #9 tab 07/11/20 Allergies/Adverse Reactions: Allergies Allergy/AdvReac Type Severity Reaction Status Date / Time No Known Allergies Allergy Verified 07/11/20 21:37 Review of Systems ROS Statement: Those systems with pertinent positive or pertinent negative responses have been documented in the HPI. ROS Other: All systems not noted in ROS Statement are negative. Past Medical History Past Medical History: No Reported History Additional Past Medical History / Comment(s): pre-eclampsia History of Any Multi-Drug Resistant Organisms: None Reported Past Surgical History: Section, Cholecystectomy Past Psychological History: Anxiety, Bipolar, Depression Smoking Status: Current every day smoker Past Alcohol Use History: None Reported Past Drug Use History: None Reported General Exam Limitations: no limitations General appearance: alert, in no apparent distress, anxious Head exam: Present: atraumatic, normocephalic, normal inspection Eye exam: Present: normal appearance, PERRL, EOMI. Absent: scleral icterus, conjunctival injection, periorbital swelling ENT exam: Present: normal exam, mucous membranes moist Neck exam: Present: normal inspection. Absent: tenderness, meningismus, lympha denopathy Respiratory exam: Present: normal lung sounds bilaterally. Absent: respiratory distress, wheezes, rales, rhonchi, stridor Cardiovascular Exam: Present: regular rate, normal rhythm, normal heart sounds. Absent: systolic murmur, diastolic murmur, rubs, gallop, clicks GI/Abdominal exam: Present: soft, normal bowel sounds. Absent: distended, tenderness, guarding, rebound, rigid Extremities exam: Present: normal inspection, full ROM, normal capillary refill. Absent: tenderness, pedal edema, joint swelling, calf tenderness Back exam: Present: normal inspection Neurological exam: Present: alert, oriented X3, CN II-XII intact Psychiatric exam: Present: normal affect, normal mood Skin exam: Present: warm, dry, intact, normal color. Absent: rash Course Vital Signs 07/11/20 21:34 Temperature 97.8 F Pulse Rate 108 H Respiratory 20 Rate Blood Pressure 136/89 O2 Sat by Pulse 99 Oximetry - Reevaluation(s) Reevaluation #1: 07/11/20 23:14 Medical record is reviewed Reevaluation #2: 07/11/20 23:14 Patient is requesting anxiety medication states Ativan is not working prefers Xanax Reevaluation #3: 07/11/20 23:14 Patient's anxiety is improved here in the ER heart rate is improved Medical Decision Making - Medical Decision Making 25 female severe anxiety. Patient can be discharged home she is not Homicidal or suicidal with no drug abuse, patient does have safe place ago and feels comfortable with discharge Disposition Clinical Impression: Anxiety, Panic attack Disposition: HOME SELF-CARE Instructions (If sedation given, give patient instructions): Generalized Anxiety Disorder (ED) Prescriptions: LORazepam [Ativan] 1 mg PO TID 3 Days #9 tab ALPRAZolam [Xanax] 1 mg PO Q8HR PRN 3 Days #9 tab PRN Reason: Anxiety Is patient prescribed a controlled substance at d/c from ED?: Yes When asked, does pt state using other controlled substances?: Yes If prescribed controlled substance>3 days was MAPS reviewed?: Prescribed <3 Days If opioid is for acute pain is fill amount 7 days or less?: No If Rx opioid, was Start Talking consent form obtained?: No Referrals: None,Stated [Primary Care Provider] - 1-2 days
[2020-07-11] MEDS ORDERED: LORazepam 2 MG/ML INJ IM STA (22:02)
[2020-07-11] MEDS ORDERED: ALPRAZolam 1 MG TAB PO STA (23:05)
== END 2020-07-11 23:15 | disposition home or self-care (01) ==
LOC: EC 21:24
DX: F41.0 Panic disorder [episodic paroxysmal anxiety] (principal); F17.200 Nicotine dependence, unspecified, uncomplicated; F32.9 Major depressive disorder, single episode, unspecified; Z90.49 Acquired absence of other specified parts of digestive tract
CPT/HCPCS: 96372; 99284

== ENCOUNTER 2020-07-22 14:17 | Emergency (ER) | payer OTHER ==
[2020-07-22 14:26] VITALS: TEMP 98
[2020-07-22] MEDS ORDERED: LORazepam 2 MG/ML INJ IV STA (14:34)
[2020-07-22] MEDS ORDERED: LORazepam 2 MG/ML INJ IM STA ×2 (14:36→15:27)
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
[2020-07-22 16:37] VITALS: BP 136/86; PULSE 89; RESP 16
== END 2020-07-22 16:34 | disposition home or self-care (01) ==
LOC: EC 14:17
DX: F41.0 Panic disorder [episodic paroxysmal anxiety] (principal); F17.200 Nicotine dependence, unspecified, uncomplicated; F41.8 Other specified anxiety disorders; Z79.899 Other long term (current) drug therapy
CPT/HCPCS: 99283; 96374; 96372 ×2; J2060; 99284

== ENCOUNTER 2020-07-24 13:56 | Emergency (ER) | payer OTHER ==
[2020-07-24 14:02] VITALS: TEMP 98.4
[2020-07-24 14:27] VITALS: RESP 18
[2020-07-24] MEDS ORDERED: SODIUM CHLORIDE 0.9% 1,000 ML IV STA (14:29)
--- NOTE | 2020-07-24 14:44 | ED ---
SOB HPI - General Chief Complaint: Shortness of Breath Stated Complaint: SOB,cough Time Seen by Provider: 07/24/20 14:21 Source: patient, RN notes reviewed Mode of arrival: ambulatory Limitations: no limitations - History of Present Illness Initial Comments: Patient is a 25-year-old female that presents to emergency department complaining of increased shortness of breath. She notes that she was recently diagnosed with a pneumonia and was given a Z-Chance by her primary care. She notes her primary care told her to come back if she did not improve to get x-rays. She noted that she called them was unable to get through so she decided come emergency room. She noted that she has approximately one left in her Z-Chance. She notes that she feels like she is having a hard time taking deep breaths. She was in no apparent distress or pain while sitting up in bed during exam and interview. She denied any chest pain headache nausea vomiting diarrhea con stipation fever fatigue chills cough, productive cough. - Related Data Home Medications Medication Instructions Recorded Confirmed Escitalopram [Lexapro] 10 mg PO DAILY 07/07/20 07/22/20 ALPRAZolam [Xanax] 0.5 mg PO Q8H PRN 07/22/20 07/22/20 Albuterol Sulfate [Ventolin HFA] 2 puff INHALATION RT-Q6H PRN 07/22/20 07/22/20 Azithromycin [Zithromax Z-pack (6 See Taper PO DAILY 07/22/20 07/22/20 tabs)] Allergies Allergy/AdvReac Type Severity Reaction Status Date / Time No Known Allergies Allergy Verified 07/22/20 15:35 Review of Systems ROS Statement: Those systems with pertinent positive or pertinent negative responses have been documented in the HPI. ROS Other: All systems not noted in ROS Statement are negative. Past Medical History Past Medical History: No Reported History Additional Past Medical History / Comment(s): pre-eclampsia, IBS History of Any Multi-Drug Resistant Organisms: None Reported Past Surgical History: Section, Cholecystectomy Past Psychological History: Anxiety, Bipolar, Depression Smoking Status: Current every day smoker Past Alcohol Use History: None Reported Past Drug Use History: None Reported General Exam Limitations: no limitations General appearance: alert, in no apparent distress, obese Head exam: Present: atraumatic, normocephalic, normal inspection Eye exam: Present: normal appearance, PERRL, EOMI. Absent: scleral icterus, conjunctival injection, periorbital swelling Neck exam: Present: normal inspection Respiratory exam: Present: rhonchi (In all lung saenz.). Absent: normal lung sounds bilaterally, respiratory distress, wheezes, rales, stridor, chest wall tenderness, accessory muscle use Cardiovascular Exam: Present: regular rate, normal rhythm, normal heart sounds. Absent: systolic murmur, diastolic murmur, rubs, gallop, clicks GI/Abdominal exam: Present: soft, normal bowel sounds. Absent: distended, tenderness, guarding, rebound, rigid Extremities exam: Present: normal inspection, full ROM, normal capillary refill. Absent: tenderness, pedal edema, joint swelling, calf tenderness Neurological exam: Present: alert, oriented X3 Psychiatric exam: Present: normal affect, normal mood Skin exam: Present: warm, dry, intact, normal color. Absent: rash Course Vital Signs 07/24/20 07/24/20 13:57 14:23 Temperature 98.4 F Pulse Rate 90 Respiratory 20 18 Rate Blood Pressure 133/81 O2 Sat by Pulse 99 Oximetry Medical Decision Making - Medical Decision Making 25-year-old female complaining of pneumonia with one leftover Z-Chance. EKG, chest x-ray, basic labs, 1 L normal saline ordered. X-ray negative for any acute cardiopulmonary process. 6 mg of Decadron ordered. Patient declined lab testing at this time. As she was anxious. Case discussed with Dr. Martines him patient discharge home with follow-up primary care. - EKG Data -: EKG Interpreted by Ar EKG shows normal: sinus rhythm Rate: normal EKG Comments: Ventricular rate 62 bpm, FL interval 130 ms, QRS duration 86 ms, QTC 403 ms, PRT axes 31/63/43. Normal sinus rhythm with sinus arrhythmia, normal ECG. - Radiology Data Radiology results: report reviewed, image reviewed Chest x-ray: Diminished inspiration on current studies. There is no suspicious focal airspace opacity, pleural effusion or pneumothorax seen. The cardiac silhouette remains within normal-size limits. The osseous structures are intact. Cholecystectomy clips noted on lateral view. No acute pulmonary process. Disposition Clinical Impression: Shortness of breath Disposition: HOME SELF-CARE Condition: Stable Instructions (If sedation given, give patient instructions): Bacterial Pneumonia (ED) Additional Instructions: Please return to the Emergency Department if symptoms worsen or any other concerns. Follow-up primary care in the next 12 days. Continue antibiotics as prescribed until complete. Can take, Motrin as needed for pain and or fevers. Is patient prescribed a controlled substance at d/c from ED?: No Referrals: Kerry Brown MD [Primary Care Provider] - 1-2 days Time of Disposition: 15:58
--- NOTE | 2020-07-24 15:20 | XR ---
EXAMINATION TYPE: XR chest 2V DATE OF EXAM: 07/24/2020 COMPARISON: Chest x-ray March 19, 2020 HISTORY: History of recent pneumonia with cough and shortness of breath. TECHNIQUE: Frontal and lateral views of the chest are obtained. FINDINGS: Diminished inspiration on current study. There is no suspicious focal air space opacity, pl eural effusion, or pneumothorax seen. The cardiac silhouette size remains within normal limits. Th e osseous structures are intact. Cholecystectomy clips noted on lateral view. IMPRESSION: No acute pulmonary process.
[2020-07-24] MEDS ORDERED: DEXAMETHASONE SOD PHOSPHATE 10 MG/ML 1 ML VIAL IV STA (15:40)
[2020-07-24] MEDS ORDERED: DEXAMETHASONE SOD PHOSPHATE 4 MG/ML 1 ML VIAL IM STA (15:58)
[2020-07-24 16:09] VITALS: BP 134/89; PULSE 88
== END 2020-07-24 16:09 | disposition home or self-care (01) ==
LOC: EC 13:56
DX: R06.02 Shortness of breath (principal); F17.200 Nicotine dependence, unspecified, uncomplicated
CPT/HCPCS: 99285; 96372; 93005; 71046; J1100

== ENCOUNTER 2020-07-25 19:18 | Emergency (ER) | payer OTHER ==
[2020-07-25 19:24] VITALS: TEMP 98.2
[2020-07-25] MEDS ORDERED: LORazepam 1 MG TAB PO STA (20:01)
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
[2020-07-25] MEDS ORDERED: LORazepam 2 MG/ML INJ IM STA ×2 (20:37→20:40)
[2020-07-25 21:38] VITALS: BP 132/72; PULSE 86; RESP 16
== END 2020-07-25 21:38 | disposition home or self-care (01) ==
LOC: EC 19:18
DX: R06.4 Hyperventilation (principal); F41.0 Panic disorder [episodic paroxysmal anxiety]; F17.200 Nicotine dependence, unspecified, uncomplicated; Z79.899 Other long term (current) drug therapy
CPT/HCPCS: 99283; 96372; J2060

== ENCOUNTER 2020-09-17 08:01 | Emergency (ER) | payer OTHER ==
[2020-09-17 08:06] VITALS: BP 132/79; PULSE 87; RESP 18; TEMP 99.2
--- NOTE | 2020-09-17 08:35 | ED ---
General Adult HPI - General Chief complaint: Upper Respiratory Infection Stated complaint: sore throat, chills Time Seen by Provider: 09/17/20 08:07 Source: patient, RN notes reviewed Mode of arrival: ambulatory Limitations: no limitations - History of Present Illness Initial comments: 25-year-old female presents to the emergency department for not feeling well. Patient states for the past 3 or 4 days she has been sick. Patient states she has congestion and ear pain. States she also has a sore throat. Patient reports her son is being treated for strep throat currently. Patient has chills but no fevers. She does have a cough as well. Denies history of asthma.Patient has no other complaints at this time including shortness of breath, chest pain, abdominal pain, nausea or vomiting, headache, or visual changes. - Related Data Home Medications Medication Instructions Recorded Confirmed Escitalopram [Lexapro] 10 mg PO DAILY 07/07/20 07/22/20 ALPRAZolam [Xanax] 0.5 mg PO Q8H PRN 07/22/20 07/22/20 Albuterol Sulfate [Ventolin HFA] 2 puff INHALATION RT-Q6H PRN 07/22/20 07/22/20 Azithromycin [Zithromax Z-pack (6 See Taper PO DAILY 07/22/20 07/22/20 tabs)] Previous Rx's Medication Instructions Recorded ALPRAZolam [ALPRAZolam XR] 1 mg PO DAILY 7 Days #7 tab 07/25/20 Benzonatate [Tessalon Perles] 200 mg PO Q8H PRN #15 capsule 09/17/20 guaiFENesin [Mucinex] 600 mg PO Q12HR PRN #20 tablet.er 09/17/20 Allergies Allergy/AdvReac Type Severity Reaction Status Date / Time No Known Allergies Allergy Verified 09/17/20 08:06 Review of Systems ROS Statement: Those systems with pertinent positive or pertinent negative responses have been documented in the HPI. ROS Other: All systems not noted in ROS Statement are negative. Past Medical History Past Medical History: No Reported History Additional Past Medical History / Comment(s): pre-eclampsia, IBS History of Any Multi-Drug Resistant Organisms: None Reported Past Surgical History: Section, Cholecystectomy Past Psychological History: Anxiety, Bipolar, Depression Smoking Status: Current every day smoker Past Alcohol Use History: None Reported Past Drug Use History: None Reported General Exam Limitations: no limitations General appearance: alert, in no apparent distress Head exam: Present: atraumatic, normocephalic, normal inspection Eye exam: Present: normal appearance, PERRL, EOMI. Absent: scleral icterus, conjunctival injection, periorbital swelling ENT exam: Present: normal exam, normal oropharynx (Uvula midline, no tonsillar exudates bilaterally), mucous membranes moist, TM's normal bilaterally, normal external ear exam, other (She does have nasal congestion noted. No tenderness noted of the maxillary or frontal sinuses.) Neck exam: Present: normal inspection, full ROM. Absent: tenderness, meningismus, lymphadenopathy Respiratory exam: Present: normal lung sounds bilaterally. Absent: respiratory distress, wheezes, rales, rhonchi, stridor Cardiovascular Exam: Present: regular rate, normal rhythm, normal heart sounds. Absent: systolic murmur, diastolic murmur, rubs, gallop, clicks GI/Abdominal exam: Present: soft, normal bowel sounds. Absent: distended, tenderness, guarding, rebound, rigid Neurological exam: Present: alert Course Vital Signs 09/17/20 08:03 Temperature 99.2 F Pulse Rate 87 Respiratory 18 Rate Blood Pressure 132/79 O2 Sat by Pulse 99 Oximetry Medical Decision Making - Medical Decision Making Vitals are stable. Patient is well appearing. Physical exam is unremarkable. Uvula is midline, no tonsillar exudates bilaterally. Lungs are clear bilaterally. Patient is not in any respiratory distress. Hensley virus is negative. Strep is negative. Culture pending. Chest x-ray shows no acute pulmonary process. Patient likely has viral respiratory infection. Patient was given supportive medicine and recommended she follow up with primary care. She will return here for any worsening symptoms. - Lab Data Lab Results 09/17/20 09/17/20 Range/Units 08:36 08:36 Coronavirus (PCR) Not Detected (Not Detectd) Group A Strep Rapid Negative (Negative) Disposition Clinical Impression: Upper respiratory infection Disposition: HOME SELF-CARE Condition: Good Instructions (If sedation given, give patient instructions): Upper Respiratory Infection (ED) Additional Instructions: Please take Motrin and Tylenol for pain or fevers. Take Mucinex for congestion. Take Tessalon Perles for cough. Follow up with primary care. Return to the emergency room for any worsening symptoms. Prescriptions: guaiFENesin [Mucinex] 600 mg PO Q12HR PRN #20 tablet.er PRN Reason: Congestion Benzonatate [Tessalon Perles] 200 mg PO Q8H PRN #15 capsule PRN Reason: Cough Is patient prescribed a controlled substance at d/c from ED?: No Referrals: Kerry Brown MD [Primary Care Provider] - 1-2 days Time of Disposition: 09:25
--- NOTE | 2020-09-17 08:43 | XR ---
EXAMINATION TYPE: XR chest 2V DATE OF EXAM: 09/17/2020 COMPARISON: 07/24/2020 INDICATION: Cough TECHNIQUE: Frontal and lateral views of the chest are obtained. FINDINGS: The heart size is normal. The pulmonary vasculature is normal. The lungs are clear. IMPRESSION: 1. No acute pulmonary process.
== END 2020-09-17 09:34 | disposition home or self-care (01) ==
LOC: EC 08:01
DX: J06.9 Acute upper respiratory infection, unspecified (principal); F17.200 Nicotine dependence, unspecified, uncomplicated; Z20.822 Contact with and (suspected) exposure to COVID-19
CPT/HCPCS: 71046; 87081; 87430; 87635; 99283

== ENCOUNTER 2020-11-01 14:22 | Emergency (ER) | payer OTHER ==
[2020-11-01 14:36] VITALS: BP 130/81; PULSE 105; RESP 20; TEMP 98
[2020-11-01 15:28] LABS: Amphetamine Screen,Urine Not Detected (NotDetected); Barbiturate Screen,Urine Not Detected (NotDetected); Benzodiazepines Screen,Urine Not Detected (NotDetected); Cocaine Screen,Urine Not Detected (NotDetected); Methadone Screen, Urine Not Detected (NotDetected); Opiate Screen,Urine Not Detected (NotDetected); Oxycodone Screen, Urine Not Detected (NotDetected); Phencyclidine Screen,Urine Not Detected (NotDetected); Tricyclic Antidepressant,Urine Not Detected (NotDetected); Urn Cannabinoid Scrn Detected (NotDetected)
--- NOTE | 2020-11-01 15:56 | ED ---
Psych HPI - General Chief Complaint: Psychiatric Symptoms Stated Complaint: Suicidal thoughts Time Seen by Provider: 11/01/20 14:38 Source: patient, RN notes reviewed Mode of arrival: ambulatory Limitations: no limitations - History of Present Illness Initial Comments: This is a 25-year-old female presents emergency Department chief complaint of depression, anxiety, PTSD. Patient states she's does see [facility]. Patient states that she's been worsening symptoms she states that she's had thoughts of just does not want to be here anymore because of her situation. She denies any illicit drug use or any alcohol abuse. - Related Data Home Medications Medication Instructions Recorded Confirmed Albuterol Sulfate [Ventolin HFA] 2 puff INHALATION RT-Q6H PRN 07/22/20 11/01/20 PARoxetine [Paxil] 20 mg PO DAILY 11/01/20 11/01/20 Prazosin HCl 4 mg PO HS 11/01/20 11/01/20 clonazePAM 2 mg PO HS@2100 11/01/20 11/01/20 Allergies Allergy/AdvReac Type Severity Reaction Status Date / Time No Known Allergies Allergy Verified 11/01/20 16:09 Review of Systems ROS Statement: Those systems with pertinent positive or pertinent negative responses have been documented in the HPI. ROS Other: All systems not noted in ROS Statement are negative. Past Medical History Past Medical History: No Reported History Additional Past Medical History / Comment(s): pre-eclampsia, IBS History of Any Multi-Drug Resistant Organisms: None Reported Past Surgical History: Section, Cholecystectomy Past Psychological History: Anxiety, Bipolar, Depression Smoking Status: Current every day smoker Past Alcohol Use History: None Reported Past Drug Use History: None Reported General Exam Limitations: no limitations General appearance: alert, in no apparent distress, anxious Head exam: Present: atraumatic, normocephalic, normal inspection Eye exam: Present: normal appearance, PERRL, EOMI. Absent: scleral icterus, conjunctival injection, periorbital swelling ENT exam: Present: normal exam, mucous membranes moist Neck exam: Present: normal inspection. Absent: tenderness, meningismus, lymphadenopathy Respiratory exam: Present: normal lung sounds bilaterally. Absent: respiratory distress, wheezes, rales, rhonchi, stridor Cardiovascular Exam: Present: regular rate, normal rhythm, normal heart sounds. Absent: systolic murmur, diastolic murmur, rubs, gallop, clicks GI/Abdominal exam: Present: soft, normal bowel sounds. Absent: distended, tenderness, guarding, rebound, rigid Neurological exam: Present: alert, oriented X3 Skin exam: Present: warm, dry, intact, normal color. Absent: rash Course Vital Signs 11/01/20 14:33 Temperature 98 F Pulse Rate 105 H Respiratory 20 Rate Blood Pressure 130/81 O2 Sat by Pulse 98 Oximetry Medical Decision Making - Medical Decision Making Patient was evaluated by EPS and psychiatrist recommends patient be discharged to outpatient treatment. - Lab Data Lab Results 11/01/20 Range/Units 14:49 Urine Opiates Screen Not Detected (NotDetected) Ur Oxycodone Screen Not Detected (NotDetected) Urine Methadone Screen Not Detected (NotDetected) Ur Propoxyphene Screen Not Detected (NotDetected) Ur Barbiturates Screen Not Detected (NotDetected) U Tricyclic Antidepress Not Detected (NotDetected) Ur Phencyclidine Scrn Not Detected (NotDetected) Ur Amphetamines Screen Not Detected (NotDetected) U Methamphetamines Scrn Not Detected (NotDetected) U Benzodiazepines Scrn Not Detected (NotDetected) Urine Cocaine Screen Not Detected (NotDetected) U Marijuana (THC) Screen Detected H (NotDetected) Disposition Clinical Impression: Depression Disposition: HOME SELF-CARE Condition: Stable Instructions (If sedation given, give patient instructions): Depression (ED) Additional Instructions: Please return to the Emergency Department if symptoms worsen or any other concerns. Is patient prescribed a controlled substance at d/c from ED?: No Referrals: Kerry Brown MD [Primary Care Provider] - 1-2 days Time of Disposition: 18:02
[2020-11-01] MEDS ORDERED: LORazepam 1 MG TAB PO STA (16:59)
== END 2020-11-01 18:20 | disposition home or self-care (01) ==
LOC: EC 14:22
DX: F32.9 Major depressive disorder, single episode, unspecified (principal); R45.851 Suicidal ideations; F17.200 Nicotine dependence, unspecified, uncomplicated
CPT/HCPCS: 80306; 82075; 99284

== ENCOUNTER 2020-11-02 18:06 | Inpatient (IN) | payer OTHER, MEDICAID ==
[2020-11-02] MEDS ORDERED: SODIUM CHLORIDE 0.9% 1,000 ML IV STA (18:19)
[2020-11-02 18:46] LABS: Basophils # (A) 0.1 k/uL (0-0.2); Basophils % (A) 1 %; Eosinophils # (A) 0.1 k/uL (0-0.7); Eosinophils % (A) 1 %; HCT 42.8 % (34.0-46.0); HGB 14.1 gm/dL (11.4-16.0); Lymphocytes # (A) 1.9 k/uL (1.0-4.8); Lymphocytes % (A) 19 %; MCH 30.2 pg (25.0-35.0); MCHC 32.9 g/dL (31.0-37.0); MCV 91.7 fL (80.0-100.0); Mean Platelet Volume 8.3; Monocytes # (A) 0.5 k/uL (0-1.0); Monocytes % (A) 5 %; Neutrophils # (A) 7.4 k/uL (1.3-7.7); Neutrophils % (A) 74 %; Platelet Count 295 k/uL (150-450); RBC 4.67 m/uL (3.80-5.40); WBC 10.1 k/uL (3.8-10.6)
[2020-11-02 18:49] LABS: Appearance,Urine Clear (Clear); Bilirubin,Urine Negative (Negative); Blood,Urine Moderate (Negative); Color,Urine Yellow; Glucose,Urine (UA) Negative (Negative); Ketones,Urine Negative (Negative); Leukocyte Esterase,Urine Negative (Negative); Mucus,Urine Rare /hpf; Nitrite,Urine Negative (Negative); PH, Urine 6.5 (5.0-8.0); Protein,Urine Negative (Negative); RBC,Urine 2 /hpf (0-5); Squamous Epithelial Cell,Urine 3 /hpf (0-4); Urobilinogen,Urine <2.0 mg/dL (<2.0); WBC,Urine 3 /hpf (0-5)
[2020-11-02 18:56] LABS: ALT 31 U/L (4-34); AST 31 U/L (14-36); Acetaminophen <10.0 ug/mL; African American GFR (CKD) >90 (>60 ml/min/1.73 sqM); Albumin 4.4 g/dL (3.5-5.0); Alcohol <10 mg/dL; Alkaline Phosphatase 84 U/L (38-126); Anion Gap 8 mmol/L; Blood Urea Nitrogen 17 mg/dL (7-17); Calcium 9.5 mg/dL (8.4-10.2); Carbon Dioxide 21 mmol/L (22-30); Chloride 109 mmol/L (98-107); Creatine Kinase 131 U/L (30-135); Glucose 96 mg/dL (74-99); Non-African American GFR(CKD) >90 (>60 ml/min/1.73 sqM); Potassium 4.6 mmol/L (3.5-5.1); Salicylate <1.0 mg/dL; Sodium 138 mmol/L (137-145); Total Bilirubin 0.6 mg/dL (0.2-1.3); Total Protein 7.6 g/dL (6.3-8.2)
[2020-11-02 18:59] LABS: Amphetamine Screen,Urine Not Detected (NotDetected); Barbiturate Screen,Urine Not Detected (NotDetected); Benzodiazepines Screen,Urine Detected (NotDetected); Cocaine Screen,Urine Not Detected (NotDetected); Methadone Screen, Urine Not Detected (NotDetected); Opiate Screen,Urine Not Detected (NotDetected); Oxycodone Screen, Urine Not Detected (NotDetected); Phencyclidine Screen,Urine Not Detected (NotDetected); Tricyclic Antidepressant,Urine Not Detected (NotDetected); Urn Cannabinoid Scrn Detected (NotDetected)
--- NOTE | 2020-11-02 19:10 | ED ---
Overdose HPI - General Source: patient Mode of arrival: ambulatory Limitations: no limitations <Sudha Pack - Last Filed: 11/02/20 21:29> <Juan Daniel Hodges - Last Filed: 11/03/20 03:32> - General Chief Complaint: Overdose Stated Complaint: overdose - History of Present Illness Initial Comments: 25-year-old female presents emergency Department with attempted overdose. Patient was seen yesterday for depression and discharged home after each case evaluation. She presents today after she took 18 tablets of Klonopin 2 mg around 5 PM. States that she took the medications in an attempt to harm herself. Report to significant depression surrounding the relationship with her ex. She denies taking any other medications. No drug or alcohol abuse. Denies concern for . No previous hospitalizations for mental health. No other alleviating, precipitating or modifying factors (Sudha Pack) - Related Data Home Medications Medication Instructions Recorded Confirmed Albuterol Sulfate [Ventolin HFA] 2 puff INHALATION RT-Q6H PRN 07/22/20 11/02/20 PARoxetine [Paxil] 20 mg PO DAILY 11/01/20 11/02/20 Prazosin HCl 4 mg PO HS 11/01/20 11/02/20 clonazePAM 2 mg PO HS@2100 11/01/20 11/02/20 Allergies Allergy/AdvReac Type Severity Reaction Status Date / Time No Known Allergies Allergy Verified 11/02/20 18:29 Review of Systems ROS Other: All systems not noted in ROS Statement are negative. <Sudha Pack - Last Filed: 11/02/20 21:29> ROS Other: All systems not noted in ROS Statement are negative. <Juan Daniel Hodges - Last Filed: 11/03/20 03:32> ROS Statement: Those systems with pertinent positive or pertinent negative responses have been documented in the HPI. Past Medical History Past Medical History: No Reported History Additional Past Medical History / Comment(s): pre-eclampsia, IBS History of Any Multi-Drug Resistant Organisms: None Reported Past Surgical History: Section, Cholecystectomy Past Psychological History: Anxiety, Bipolar, Depression Smoking Status: Current every day smoker, Vaper Past Alcohol Use History: None Reported Past Drug Use History: None Reported <Sudha Pack - Last Filed: 11/02/20 21:29> General Exam Limitations: no limitations General appearance: alert, in no apparent distress Head exam: Present: atraumatic, normocephalic, normal inspection Eye exam: Present: normal appearance, PERRL, EOMI. Absent: scleral icterus, conjunctival injection, periorbital swelling ENT exam: Present: normal exam, mucous membranes moist Neck exam: Present: normal inspection. Absent: tenderness, meningismus, lymphadenopathy Respiratory exam: Present: normal lung sounds bilaterally. Absent: respiratory distress, wheezes, rales, rhonchi, stridor Cardiovascular Exam: Present: regular rate, normal rhythm, normal heart sounds. Absent: systolic murmur, diastolic murmur, rubs, gallop, clicks GI/Abdominal exam: Present: soft, normal bowel sounds. Absent: distended, tenderness, guarding, rebound, rigid Extremities exam: Present: normal inspection, full ROM, normal capillary refill. Absent: tenderness, pedal edema, joint swelling, calf tenderness Back exam: Present: normal inspection Neurological exam: Present: alert, oriented X3, CN II-XII intact Psychiatric exam: Present: depressed, suicidal ideation Skin exam: Present: warm, dry, intact, normal color. Absent: rash <Sudha Pack - Last Filed: 11/02/20 21:29> Course Vital Signs 11/02/20 18:15 Temperature 98.9 F Pulse Rate 87 Respiratory 20 Rate Blood Pressure 128/92 O2 Sat by Pulse 97 Oximetry Medical Decision Making - Lab Data Result diagrams: 11/02/20 18:41 11/02/20 18:41 <Sudha Pack - Last Filed: 11/02/20 21:29> - Lab Data Result diagrams: 11/02/20 18:41 11/02/20 18:41 <Juan Daniel Hodges - Last Filed: 11/03/20 03:32> - Medical Decision Making On arrival patient placed into room 12. A thorough history and physical exam is performed. Poison control was contacted and recommends 6-8 hours of observation. Patient remains acute alert upon reevaluation. Patient will be medically clear at midnight for EPS evaluation. (Sudha Pack) I did see the patient briefly, Confirming details of history for purpose of following the clinical certificate. (Juan Daniel Hodges) - Lab Data Lab Results 09/23/21 09/23/21 09/23/21 Range/Units 18:41 18:41 18:41 WBC 10.1 (3.8-10.6) k/uL RBC 4.67 (3.80-5.40) m/uL Hgb 14.1 (11.4-16.0) gm/dL Hct 42.8 (34.0-46.0) % MCV 91.7 (80.0-100.0) fL MCH 30.2 (25.0-35.0) pg MCHC 32.9 (31.0-37.0) g/dL RDW 13.0 (11.5-15.5) % Plt Count 295 (150-450) k/uL MPV 8.3 Neutrophils % 74 % Lymphocytes % 19 % Monocytes % 5 % Eosinophils % 1 % Basophils % 1 % Neutrophils # 7.4 (1.3-7.7) k/uL Lymphocytes # 1.9 (1.0-4.8) k/uL Monocytes # 0.5 (0-1.0) k/uL Eosinophils # 0.1 (0-0.7) k/uL Basophils # 0.1 (0-0.2) k/uL Sodium (137-145) mmol/L Potassium (3.5-5.1) mmol/L Chloride (98-107) mmol/L Carbon Dioxide (22-30) mmol/L Anion Gap mmol/L BUN (7-17) mg/dL Creatinine (0.52-1.04) mg/dL Est GFR (CKD-EPI)AfAm (>60 ml/min/1.73 sqM) Est GFR (CKD-EPI)NonAf (>60 ml/min/1.73 sqM) Glucose (74-99) mg/dL Calcium (8.4-10.2) mg/dL Total Bilirubin (0.2-1.3) mg/dL AST (14-36) U/L ALT (4-34) U/L Alkaline Phosphatase (38-126) U/L Creatine Kinase (30-135) U/L Total Protein (6.3-8.2) g/dL Albumin (3.5-5.0) g/dL Urine Color Urine Appearance (Clear) Urine pH (5.0-8.0) Ur Specific [place] (1.001-1.035) Urine Protein (Negative) Urine Glucose (UA) (Negative) Urine Ketones (Negative) Urine Blood (Negative) Urine Nitrite (Negative) Urine Bilirubin (Negative) Urine Urobilinogen (<2.0) mg/dL Ur Leukocyte Esterase (Negative) Urine RBC (0-5) /hpf Urine WBC (0-5) /hpf Ur Squamous Epith Cells (0-4) /hpf Urine Mucus (None) /hpf Urine HCG, Qual Not Detected (Not Detectd) Salicylates mg/dL Urine Opiates Screen Not Detected (NotDetected) Ur Oxycodone Screen Not Detected (NotDetected) Urine Methadone Screen Not Detected (NotDetected) Ur Propoxyphene Screen Not Detected (NotDetected) Acetaminophen ug/mL Ur Barbiturates Screen Not Detected (NotDetected) U Tricyclic Antidepress Not Detected (NotDetected) Ur Phencyclidine Scrn Not Detected (NotDetected) Ur Amphetamines Screen Not Detected (NotDetected) U Methamphetamines Scrn Not Detected (NotDetected) U Benzodiazepines Scrn Detected H (NotDetected) Urine Cocaine Screen Not Detected (NotDetected) U Marijuana (THC) Screen Detected H (NotDetected) Serum Alcohol mg/dL 11/02/20 11/02/20 Range/Units 18:41 18:41 WBC (3.8-10.6) k/uL RBC (3.80-5.40) m/uL Hgb (11.4-16.0) gm/dL Hct (34.0-46.0) % MCV (80.0-100.0) fL MCH (25.0-35.0) pg MCHC (31.0-37.0) g/dL RDW (11.5-15.5) % Plt Count (150-450) k/uL MPV Neutrophils % % Lymphocytes % % Monocytes % % Eosinophils % % Basophils % % Neutrophils # (1.3-7.7) k/uL Lymphocytes # (1.0-4.8) k/uL Monocytes # (0-1.0) k/uL Eosinophils # (0-0.7) k/uL Basophils # (0-0.2) k/uL Sodium 138 (137-145) mmol/L Potassium 4.6 (3.5-5.1) mmol/L Chloride 109 H (98-107) mmol/L Carbon Dioxide 21 L (22-30) mmol/L Anion Gap 8 mmol/L BUN 17 (7-17) mg/dL Creatinine 0.79 (0.52-1.04) mg/dL Est GFR (CKD-EPI)AfAm >90 (>60 ml/min/1.73 sqM) Est GFR (CKD-EPI)NonAf >90 (>60 ml/min/1.73 sqM) Glucose 96 (74-99) mg/dL Calcium 9.5 (8.4-10.2) mg/dL Total Bilirubin 0.6 (0.2-1.3) mg/dL AST 31 (14-36) U/L ALT 31 (4-34) U/L Alkaline Phosphatase 84 (38-126) U/L Creatine Kinase 131 (30-135) U/L Total Protein 7.6 (6.3-8.2) g/dL Albumin 4.4 (3.5-5.0) g/dL Urine Color Yellow Urine Appearance Clear (Clear) Urine pH 6.5 (5.0-8.0) Ur Specific [place] 1.020 (1.001-1.035) Urine Protein Negative (Negative) Urine Glucose (UA) Negative (Negative) Urine Ketones Negative (Negative) Urine Blood Moderate H (Negative) Urine Nitrite Negative (Negative) Urine Bilirubin Negative (Negative) Urine Urobilinogen <2.0 (<2.0) mg/dL Ur Leukocyte Esterase Negative (Negative) Urine RBC 2 (0-5) /hpf Urine WBC 3 (0-5) /hpf Ur Squamous Epith Cells 3 (0-4) /hpf Urine Mucus Rare H (None) /hpf Urine HCG, Qual (Not Detectd) Salicylates <1.0 mg/dL Urine Opiates Screen (NotDetected) Ur Oxycodone Screen (NotDetected) Urine Methadone Screen (NotDetected) Ur Propoxyphene Screen (NotDetected) Acetaminophen <10.0 ug/mL Ur Barbiturates Screen (NotDetected) U Tricyclic Antidepress (NotDetected) Ur Phencyclidine Scrn (NotDetected) Ur Amphetamines Screen (NotDetected) U Methamphetamines Scrn (NotDetected) U Benzodiazepines Scrn (NotDetected) Urine Cocaine Screen (NotDetected) U Marijuana (THC) Screen (NotDetected) Serum Alcohol <10 mg/dL - EKG Data EKG Comments: EKG demonstrates normal sinus rhythm with a ventricular rate of 88. [place] interval 166. QRS 82. QTC of 423. No acute ST segment elevations or depressions concerning for ischemic changes (Sudha Pack) Disposition <Sudha Pack - Last Filed: 11/02/20 21:29> Is patient prescribed a controlled substance at d/c from ED?: No <Juan Daniel Hodges - Last Filed: 11/03/20 03:32> Clinical Impression: Overdose, Mood disorder Disposition: ADMITTED IP TO THIS HOSP Condition: Fair Referrals: Kerry Brown MD [Primary Care Provider] - 1-2 days
[2020-11-02] MEDS ORDERED: NICOTINE 14MG/24HR PATCH TRANSDERM STA (20:57)
[2020-11-03] MEDS ORDERED: MAG HYDROX/AL HYDROX/SIMETH 30 ML CUP PO PRN (04:11)
[2020-11-03] MEDS ORDERED: MAGNESIUM HYDROXIDE 2,400 MG/10 ML CUP PO PRN (04:11)
[2020-11-03] MEDS ORDERED: ACETAMINOPHEN TAB 325 MG TAB PO PRN (04:11)
[2020-11-03] MEDS ORDERED: HALOPERIDOL LACTATE 5 MG/ML 1 ML VIAL IM PRN (04:14)
[2020-11-03] MEDS ORDERED: LORazepam 2 MG/ML INJ IM PRN (04:14)
[2020-11-03] MEDS: LORazepam 1 MG TAB PO PRN ×2 (05:05→13:14)
--- NOTE | 2020-11-03 05:41 | P.MDCNMH ---
History of Present Illness H&P Date: 11/03/20 Chief Complaint: Medical evaluation 25-year-old female with depression, anxiety, PTSD Patient comes into the hospital for evaluation after overdosing on Klonopin she indicated that it was intentional to harm herself. She was evaluated yesterday in the ED for depression and discharged home. This time she comes in claiming that she took a bottle of clonidine and attempt to harm herself she currently denies any headache nausea vomiting changes in vision or hearing or any focal neuro deficits she denies any trouble breathing nausea vomiting abdominal pain changes in her urinary habits or bowel habits she denies any rashes. Patient admits to tobacco smoking but denies any drugs or alcohol use Poison control was contacted when patient was in the ED and recommended to monitor the patient for 6 hours and then to be cleared medically and go to the second Review of Systems Pertinent positives as noted in HPI. All other systems were reviewed and are negative Past Medical History Past Medical History: No Reported History Additional Past Medical History / Comment(s): pre-eclampsia, IBS History of Any Multi-Drug Resistant Organisms: None Reported Past Surgical History: Section, Cholecystectomy Past Psychological History: Anxiety, Bipolar, Depression Smoking Status: Current every day smoker, Vaper Past Alcohol Use History: None Reported Past Drug Use History: None Reported - Past Family History Father Family Medical History: Hypertension Medications and Allergies Home Medications Medication Instructions Recorded Confirmed Type Albuterol Sulfate [Ventolin HFA] 2 puff INHALATION RT-Q6H PRN 07/22/20 11/02/20 History PARoxetine [Paxil] 20 mg PO DAILY 11/01/20 11/02/20 History Prazosin HCl 4 mg PO HS 11/01/20 11/02/20 History clonazePAM 2 mg PO HS@2100 11/01/20 11/02/20 History Allergies Allergy/AdvReac Type Severity Reaction Status Date / Time No Known Allergies Allergy Verified 11/02/20 18:29 Physical Exam Vitals: Vital Signs Temp Pulse Resp BP Pulse Ox 11/02/20 18:15 98.9 F 87 20 128/92 97 Intake and Output 11/02/20 11/02/20 11/03/20 14:59 22:59 06:59 Other: Weight 105.233 kg Constitutional: No acute distress, conversant, pleasant Eyes: Anicteric sclerae, moist conjunctiva, Pupils equal round reactive to light ENMT: NC/AT Oropharynx clear, no erythema, or exudates Neck: Supple, FROM, no masses, or JVD No carotid bruits No thyromegaly Lungs: Clear to auscultation Clear to percussion Normal respiratory effort, no accessory muscle use Cardiovascular: Heart regular in rate and rhythm, No murmurs, gallops, or rubs No peripheral edema Abdominal: Soft Nontender, no guarding, rebound or rigidity Abdomen moving with respiration Normoactive bowel sounds No hepatomegaly, No splenomegaly No palpable mass No abdominal wall hernia noted Skin: Normal temperature, tone, texture, turgor No induration No subcutaneous nodules No rash, lesions No ulcers Extremities: No digital cyanosis No clubbing Pedal pulses intact and symmetrical Radial pulses intact and symmetrical No calf tenderness Psychiatric: Alert and oriented to person, place and time Neuro Muscles Strength 5/5 in all 4 extremities Sensation to light touch grossly present throughout Cranial nerves II-XII grossly intact No focal sensory deficits Lymphatics: no palpable cervical or supraclavicular , or inguinal lymph nodes Cranial Nerve Examination - Cranial Nerves Cranial Nerve II- Optic: Intact Cranial Nerve III- Oculomotor: Intact Cranial Nerve IV- Trochlear: Intact Cranial Nerve V- Trigeminal: Intact Cranial Nerve - Abducens: Intact Cranial Nerve VII- Facial: Intact Cranial Nerve VIII- Auditory: Intact Cranial Nerve IX- Glossopharyngeal: Intact Cranial Nerve X- Vagus: Intact Cranial Nerve XI- Accessory: Intact Cranial Nerve XII- Hypoglossal: Intact Results CBC & Chem 7: 11/02/20 18:41 11/02/20 18:41 Labs: Abnormal Lab Results - Last 24 Hours (Table) 11/02/20 11/02/20 11/02/20 Range/Units 18:41 18:41 18:41 Chloride 109 H (98-107) mmol/L Carbon Dioxide 21 L (22-30) mmol/L Urine Blood Moderate H (Negative) Urine Mucus Rare H (None) /hpf U Benzodiazepines Scrn Detected H (NotDetected) U Marijuana (THC) Screen Detected H (NotDetected) Assessment and Plan Assessment: Unintentional drug overdose Depression and anxiety PTSD Management per psych Patient to continue prazosin if it's an active medication which would help with PTSD symptoms Check TSH Follow-up A1c Patient was monitored in the ED for drug overdose and was cleared medically, Per poison control recommendations Thank you for allowing us to participate in the care of this patient. We will follow peripherally. Do not hesitate to contact us with questions. Someone can be reached from the [facility] hospitalist group at all hours of the day at [phone].
[2020-11-03 06:37] VITALS: RESP 16; TEMP 98
[2020-11-03] MEDS: NICOTINE 21MG/24HR PATCH TRANSDERM SCH (13:13)
[2020-11-03] MEDS: FLUoxetine HCL 20 MG CAP PO SCH (14:56)
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
[2020-11-03] MEDS: OLANZapine 5 MG TAB PO PRN (20:38)
[2020-11-03] MEDS ORDERED: PRAZOSIN 1 MG CAP PO SCH (21:00)
[2020-11-04 08:30] LABS: Basophils % (A) 0 %; Eosinophils # (A) 0.1 k/uL (0-0.7); Eosinophils % (A) 2 %; Lymphocytes # (A) 3.6 k/uL (1.0-4.8); Lymphocytes % (A) 51 %; MCH 30.5 pg (25.0-35.0); MCHC 32.7 g/dL (31.0-37.0); MCV 93.3 fL (80.0-100.0); Mean Platelet Volume 8.6; Monocytes # (A) 0.4 k/uL (0-1.0); Monocytes % (A) 6 %; Neutrophils # (A) 2.7 k/uL (1.3-7.7); Neutrophils % (A) 39 %; Platelet Count 251 k/uL (150-450); RBC 4.61 m/uL (3.80-5.40); RDW 12.9 % (11.5-15.5)
[2020-11-04] MEDS: FLUoxetine HCL 20 MG CAP PO SCH (08:34)
[2020-11-04] MEDS: NICOTINE 21MG/24HR PATCH TRANSDERM SCH (08:34)
[2020-11-04 08:40] LABS: ALT 28 U/L (4-34); AST 29 U/L (14-36); African American GFR (CKD) >90 (>60 ml/min/1.73 sqM); Albumin 4.2 g/dL (3.5-5.0); Alkaline Phosphatase 75 U/L (38-126); Anion Gap 10 mmol/L; Blood Urea Nitrogen 13 mg/dL (7-17); Calcium 9.5 mg/dL (8.4-10.2); Carbon Dioxide 23 mmol/L (22-30); Chloride 106 mmol/L (98-107); Glucose 81 mg/dL (74-99); Non-African American GFR(CKD) >90 (>60 ml/min/1.73 sqM); Sodium 139 mmol/L (137-145); Total Protein 7.3 g/dL (6.3-8.2)
[2020-11-04 09:29] LABS: Potassium 4.7 mmol/L (3.5-5.1)
[2020-11-04 12:15] LABS: Hemoglobin A1C 5.4 % (4.0-6.0)
--- NOTE | 2020-11-04 13:54 | PN ---
PROGRESS NOTE DATE OF SERVICE: 11/04/2020 CHIEF COMPLAINT: The patient took 18 tablets of Klonopin 2 mg and acknowledged it was an attempt to kill herself. INTERVAL HISTORY: Patient has been doing fair. She mostly had a quiet day yesterday. She did have some periods where she got very distressed. At one point she got to a point where she was crying and almost in an agitated state after the interview with myself. The main issue was that she believed that she was going home yesterday, and when the circumstances were presented to her that she would be in the hospital for at least through the weekend, she had a very difficult time with that. It is noted that staff was able to work with her and over about a half-hour period of time she was able to calm herself to the point where she stopped me and apologized for being in such an aggravated state. She seemed to do better as the day went on. It is noted that in the evening time she also received Zyprexa p.r.n. At 8:30 she said that she got into quite a bit of distress, mainly thinking about her son; 8:30 is his bedtime and that got her in a very distressed state again. She notes that in the evening time after she took her medications she was quite sleepy and continued to be sleepy this morning. She noted that she has been attending groups and feels that she engages in a very active way in groups. She says she takes the handouts and goes through all of the handouts as well. One of her concerns today was feeling that she is getting too much sedation effects from the prazosin. She in fact was concerned that the dose was increased to such a high level when she was seen at [facility] at the end of August. The dose was prescribed at 4 mg at bedtime. Today she has been up and out on the unit. She interacts with others. It is noted that her mood can go up and down. She is very focused on discharge. She has not had any issues or side effects with the start of Prozac. It is noted she seemed to have problems with the p.r.n. Zyprexa. MENTAL STATUS EXAM: Patient sat with some restlessness. She gave fairly good eye contact. She answered questions directly. Her thoughts were clear. She was spontaneous. Her affect for the most part was anxious. She smiled at some points and then appeared to be close to tears at others. Her mood was dysphoric. She seemed somewhat distressed. There was no indication of thought disorder. She denied thoughts of harm. Cognition was clear. ASSESSMENT: I will continue the current diagnosis and treatment plan. We will continue to make efforts to engage the patient in individual and group therapeutic activities. I will reduce her prazosin to 1 mg at bedtime. She will continue Prozac 20 mg a day. I reviewed medication issues with the patient. She does have availability of p.r.n. Zyprexa for high anxiety. I discussed that on Friday at the treatment team we would make efforts to coordinate with [facility]. It is noted that she has been in therapy, though she says she has only gone for one initial appointment with a therapist and has not had any previous contact with the therapist. We will focus on stabilization and discharge planning. ELIAS / LENO: [id number] / CLEMENTE
[2020-11-04] MEDS: OLANZapine 5 MG TAB PO PRN (15:25)
[2020-11-04] MEDS: PRAZOSIN 1 MG CAP PO SCH (20:04)
[2020-11-05] MEDS: NICOTINE 21MG/24HR PATCH TRANSDERM SCH (08:40)
[2020-11-05] MEDS: FLUoxetine HCL 20 MG CAP PO SCH (08:40)
--- NOTE | 2020-11-05 10:49 | PN ---
PROGRESS NOTE DATE OF SERVICE: 11/05/2020 COMPLAINT: The patient took 18 tablets of Klonopin 2 mg and acknowledged it was an attempt to kill herself. INTERVAL HISTORY: Patient has been doing fairly well. She seemed to have a good day yesterday. She comes out on the unit. She interacts with others. She said that she missed the early groups yesterday because she was sleeping. She felt over sedated, which she attributed to her prior prazosin. She said otherwise she finds the groups very positive for her. She said she was disappointed that she anticipated a 7:00 pm group that did not happen. She has been out on the unit. She interacts appropriately with staff and peers. She slept fairly well last night. Today she has been up. She notes that she does not feel sedation that she had the night before. She says that since being on the unit, she has a much better outlook about what has developed for her in the hospitalization. She says that she has been able to gain some insights about her situation. She sees it as positive that she has been able to step back from her usual life situation and the regular people in her life. She feels she has been open able to open up about some of her emotional struggles and has felt that the experience on the unit has been positive for her. She did have some issues with getting quite anxious to the point of panicky. Early on in her stay, though for the most part yesterday she did seem to do quite well in that regard. She notes that she has been on prazosin for a while, though she was not clear of what the indication for the medication was. At this point, she has tolerated her medicines fairly well. MENTAL STATUS EXAM: Patient sat without restlessness. She gave good eye contact. She was spontaneous and interactive. Her thoughts were clear, coherent and goal-directed. Her affect was in a good range. She smiled. She had a friendly manner. Her mood was even. She was not distressed. There was no indication of thought disorder. Cognition was clear. ASSESSMENT: I will continue the current diagnosis and treatment plan. I will continue psychotropic medications the same. She will continue Prozac 20 mg a day and prazosin 1 mg at bedtime. I reviewed issues with the indication for prazosin, namely for nightmares related to PTSD. I also noted with the patient that her blood pressure has tended to run high and that we will need to continue to monitor that. She may need followup in that regard. There might be the possibility that she would need to start an additional medication for hypertension. She seems to be making good progress. I would anticipate discharge early in the week. We will focus on stabilization and discharge planning. ELIAS / SRIDHARN: [id number] /
[2020-11-05] MEDS: OLANZapine 5 MG TAB PO PRN (19:06)
[2020-11-05] MEDS: PRAZOSIN 1 MG CAP PO SCH (20:34)
[2020-11-05 20:37] VITALS: BP 129/88; PULSE 103
[2020-11-06] MEDS: FLUoxetine HCL 20 MG CAP PO SCH (08:45)
[2020-11-06] MEDS: NICOTINE 21MG/24HR PATCH TRANSDERM SCH (08:45)
[2020-11-06] MEDS: OLANZapine 5 MG TAB PO PRN (09:50)
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
== END 2020-11-06 15:05 | disposition home or self-care (01) | DRG 881 ==
LOC: EC 18:06 → 3MHU 11-03 04:05
PROVIDERS: ADMIT Psychiatry & Neurology Psychiatry; ATTEND Psychiatry & Neurology Psychiatry
DX: F32.9 Major depressive disorder, single episode, unspecified (principal); F12.10 Cannabis abuse, uncomplicated; T42.4X2A Poisoning by benzodiazepines, intentional self-harm, initial encounter; Z20.822 Contact with and (suspected) exposure to COVID-19; F43.10 Post-traumatic stress disorder, unspecified; K58.9 Irritable bowel syndrome, unspecified; R45.87 Impulsiveness; F41.0 Panic disorder [episodic paroxysmal anxiety]; F17.290 Nicotine dependence, other tobacco product, uncomplicated; Z71.6 Tobacco abuse counseling; Z79.899 Other long term (current) drug therapy; Z62.810 Personal history of physical and sexual abuse in childhood; Z98.891 History of uterine scar from previous surgery; Z90.49 Acquired absence of other specified parts of digestive tract; Z87.19 Personal history of other diseases of the digestive system; Z98.890 Other specified postprocedural states; Z82.49 Family history of ischemic heart disease and other diseases of the circulatory system
CPT/HCPCS: 36415; 80053; 80143; 80179; 80306; 80320; 81001; 81025; 82075; 82550; 83036; 84443; 85025; 87635; 93005; 96360; 96361; 99285

== ENCOUNTER 2021-01-25 17:08 | Emergency (ER) | payer OTHER ==
[2021-01-25 17:22] VITALS: BP 133/87; PULSE 88; RESP 18; TEMP 98.8
--- NOTE | 2021-01-25 18:00 | ED ---
General Adult HPI - General Chief complaint: Syncope Stated complaint: syncope Time Seen by Provider: 01/25/21 17:12 Source: patient, EMS Mode of arrival: EMS Limitations: no limitations - History of Present Illness Initial comments: 25-year-old female relatively well known to our emergency room presents to the emergency room today for syncope. Patient states that she had just stood up to get a drink of milk out of the fridge. States as she was walking she got lightheaded. Patient passed out. Patient called 911 because she woke up on the floor. She did not have any associated chest pain or shortness of breath. Patient is now requesting discharge home as soon as possible. She is denying any symptoms. Patient has no other complaints at this time including shortness of breath, chest pain, abdominal pain, nausea or vomiting, headache, or visual changes. - Related Data Home Medications Medication Instructions Recorded Confirmed Albuterol Sulfate [Ventolin HFA] 2 puff INHALATION RT-Q6H PRN 07/22/20 11/03/20 Previous Rx's Medication Instructions Recorded FLUoxetine HCL [PROzac] 20 mg PO DAILY 14 Days cap 11/06/20 Nicotine 21Mg/24Hr Patch [Habitrol] 1 patch TRANSDERM DAILY PRN 14 11/06/20 Days patch Prazosin [Minipress] 1 mg PO HS 14 Days cap 11/06/20 Allergies Allergy/AdvReac Type Severity Reaction Status Date / Time No Known Allergies Allergy Verified 11/03/20 11:47 Review of Systems ROS Statement: Those systems with pertinent positive or pertinent negative responses have been documented in the HPI. ROS Other: All systems not noted in ROS Statement are negative. Past Medical History Past Medical History: No Reported History Additional Past Medical History / Comment(s): pre-eclampsia, IBS History of Any Multi-Drug Resistant Organisms: None Reported Past Surgical History: Section, Cholecystectomy Past Psychological History: Anxiety, Bipolar, Depression Smoking Status: Current every day smoker, Vaper Past Alcohol Use History: None Reported Past Drug Use History: Marijuana - Past Family History Father Family Medical History: Hypertension General Exam Limitations: no limitations General appearance: alert, in no apparent distress Head exam: Present: atraumatic Eye exam: Present: normal appearance, PERRL, EOMI. Absent: scleral icterus, conjunctival injection ENT exam: Present: normal exam, mucous membranes moist Neck exam: Present: normal inspection, full ROM. Absent: tenderness Respiratory exam: Present: normal lung sounds bilaterally. Absent: respiratory distress, wheezes Cardiovascular Exam: Present: regular rate, normal rhythm, normal heart sounds GI/Abdominal exam: Present: soft, normal bowel sounds. Absent: distended, tenderness Neurological exam: Present: alert Course Vital Signs 01/25/21 17:17 Temperature 98.8 F Pulse Rate 88 Respiratory 18 Rate Blood Pressure 133/87 O2 Sat by Pulse 98 Oximetry EKG Findings - EKG Comments: EKG Findings:: Normal sinus rhythm, ventricular rate 84, OR interval 150, QTC 437 Medical Decision Making - Medical Decision Making Vitals are stable. Patient is well appearing. EKG is unremarkable. Urinalysis and hCG negative. She is refusing chest xr and would like to leave AMA. Alert and oriented, capable of making her own medical decisions. She will return here for any worsening symptoms. I did encourage her to follow up with primary care. - Lab Data Lab Results 01/25/21 01/25/21 Range/Units 17:55 17:55 Urine Color Yellow Urine Appearance Clear (Clear) Urine pH 7.5 (5.0-8.0) Ur Specific [place] 1.021 (1.001-1.035) Urine Protein Negative (Negative) Urine Glucose (UA) Negative (Negative) Urine Ketones Negative (Negative) Urine Blood Negative (Negative) Urine Nitrite Negative (Negative) Urine Bilirubin Negative (Negative) Urine Urobilinogen <2.0 (<2.0) mg/dL Ur Leukocyte Esterase Negative (Negative) Urine HCG, Qual Not Detected (Not Detectd) Disposition Clinical Impression: Syncope Disposition: Left Against Medical Advice Condition: Stable Instructions (If sedation given, give patient instructions): Syncope (ED) Additional Instructions: Please follow-up with your primary care doctor in one to 2 days. Return to the emergency room for any worsening symptoms. Is patient prescribed a controlled substance at d/c from ED?: No Referrals: Kerry Brown MD [Primary Care Provider] - 1-2 days Time of Disposition: 18:00
[2021-01-25 18:04] LABS: Appearance,Urine Clear (Clear); Bilirubin,Urine Negative (Negative); Blood,Urine Negative (Negative); Color,Urine Yellow; Glucose,Urine (UA) Negative (Negative); Ketones,Urine Negative (Negative); Leukocyte Esterase,Urine Negative (Negative); Nitrite,Urine Negative (Negative); PH, Urine 7.5 (5.0-8.0); Protein,Urine Negative (Negative); Specific Gravity,Urine 1.021 (1.001-1.035); Urobilinogen,Urine <2.0 mg/dL (<2.0)
== END 2021-01-25 18:17 | disposition left against medical advice (07) ==
LOC: EC 17:08
DX: R55 Syncope and collapse (principal); F17.290 Nicotine dependence, other tobacco product, uncomplicated; Z53.29 Procedure and treatment not carried out because of patient's decision for other reasons
CPT/HCPCS: 81003; 81025; 93005; 99284

== ENCOUNTER 2021-06-04 11:47 | Emergency (ER) | payer OTHER ==
[2021-06-04 15:32] LABS: Basophils # (A) 0.1 k/uL (0-0.2); Basophils % (A) 1 %; Eosinophils # (A) 0.2 k/uL (0-0.7); Eosinophils % (A) 3 %; HCT 42.6 % (34.0-46.0); HGB 14.1 gm/dL (11.4-16.0); Lymphocytes # (A) 2.7 k/uL (1.0-4.8); Lymphocytes % (A) 29 %; MCH 30.4 pg (25.0-35.0); MCHC 33.1 g/dL (31.0-37.0); MCV 91.9 fL (80.0-100.0); Mean Platelet Volume 8.7; Monocytes # (A) 0.5 k/uL (0-1.0); Monocytes % (A) 6 %; Neutrophils # (A) 5.5 k/uL (1.3-7.7); Neutrophils % (A) 60 %; Platelet Count 270 k/uL (150-450); RBC 4.64 m/uL (3.80-5.40); RDW 13.3 % (11.5-15.5); WBC 9.2 k/uL (3.8-10.6)
[2021-06-04 15:38] LABS: INR 0.9 (<1.2); Partial Thromboplastin Time 23.3 sec (22.0-30.0); Prothrombin Time 10.2 sec (9.0-12.0)
[2021-06-04] MEDS ORDERED: HYDROmorphone 0.5 MG/0.5 ML SYRINGE IVP STA (15:44)
[2021-06-04 15:56] LABS: ALT 30 U/L (4-34); AST 22 U/L (14-36); African American GFR (CKD) >90 (>60 ml/min/1.73 sqM); Albumin 4.3 g/dL (3.5-5.0); Alkaline Phosphatase 80 U/L (38-126); Amylase 66 U/L (30-110); Anion Gap 8 mmol/L; Blood Urea Nitrogen 13 mg/dL (7-17); Calcium 9.2 mg/dL (8.4-10.2); Carbon Dioxide 21 mmol/L (22-30); Chloride 109 mmol/L (98-107); Glucose 91 mg/dL (74-99); Lipase 70 U/L (23-300); Magnesium 1.9 mg/dL (1.6-2.3); Non-African American GFR(CKD) >90 (>60 ml/min/1.73 sqM); Potassium 4.4 mmol/L (3.5-5.1); Sodium 138 mmol/L (137-145); Total Bilirubin 0.4 mg/dL (0.2-1.3); Total Protein 7.5 g/dL (6.3-8.2)
[2021-06-04 16:19] LABS: Appearance,Urine Clear (Clear); Bilirubin,Urine Negative (Negative); Blood,Urine Negative (Negative); Color,Urine Light Yellow; Glucose,Urine (UA) Negative (Negative); Ketones,Urine Negative (Negative); Leukocyte Esterase,Urine Negative (Negative); Nitrite,Urine Negative (Negative); Protein,Urine Negative (Negative); RBC,Urine <1 /hpf (0-5); Specific Gravity,Urine 1.011 (1.001-1.035); Squamous Epithelial Cell,Urine 1 /hpf (0-4); Urobilinogen,Urine <2.0 mg/dL (<2.0); WBC,Urine <1 /hpf (0-5)
--- NOTE | 2021-06-04 16:25 | CT ---
EXAMINATION TYPE: CT abdomen pelvis w con DATE OF EXAM: 06/04/2021 COMPARISON: 01/11/2020 HISTORY: Left upper quadrant pain CT DLP: 1602.1 mGycm CONTRAST: CT scan of the abdomen and pelvis is performed without Oral Contrast and with IV Contrast, patient in jected with 100 mL of Isovue 300. FINDINGS: LUNG BASES-: No visible nodule. No infiltrate. LIVER/GB: No calcified gallstones. No space occupying hepatic lesion. Biliary tree is of normal ca liber. PANCREAS: No inflammation. No distinct mass. SPLEEN: No splenic enlargement. No lesion seen. ADRENALS: No nodule. No thickening. KIDNEYS/BLADDER: No hydronephrosis. No nephrolithiasis. No distinct renal mass. Urinary bladder g rossly unremarkable. BOWEL: Normal appendix. Thickened and distended loops of jejunum left upper quadrant may reflect ente ritis. Bowel loops measure up to 2.5 cm. GENITAL ORGANS: 4 cm right ovarian cystic lesion. Consider ultrasound correlation. Uterus and left o vary are within normal limits. LYMPH NODES: No greater than 1cm abdominal or pelvic lymph nodes are appreciated. AORTA: No significant abnormality. OSSEOUS STRUCTURES: No significant abnormality is seen. OTHER: No significant additional abnormality is seen. IMPRESSION: 1. Correlate for nonspecific small bowel enteritis. 2. Right ovarian cystic lesion is nonspecific.
== END 2021-06-04 17:09 | disposition home or self-care (01) ==
LOC: EC 11:47
DX: K52.9 Noninfective gastroenteritis and colitis, unspecified (principal)
CPT/HCPCS: 99284; 96374; 36415; 80053; 82150; 83605; 83690; 83735; 85025; 85610; 85730; 81003; 81025; 74177; J1170; Q9967

== ENCOUNTER 2021-06-30 10:49 | Emergency (ER) | payer OTHER ==
[2021-06-30 11:13] VITALS: BP 134/93; PULSE 81; RESP 16; TEMP 98.4
[2021-06-30] MEDS ORDERED: ALBUTEROL HFA INHALER INHALATION STA (11:27)
[2021-06-30] MEDS ORDERED: IBUPROFEN 400 MG TAB PO STA (11:54)
--- NOTE | 2021-06-30 12:02 | XR ---
EXAMINATION TYPE: XR chest 1V portable DATE OF EXAM: 06/30/2021 COMPARISON: Chest x-ray September 17, 2020 HISTORY: Wheezing. TECHNIQUE: Single AP portable frontal upright view of the chest is obtained. FINDINGS: There is no suspicious focal air space opacity, pleural effusion, or pneumothorax seen. T he cardiac silhouette size remains within normal limits. The osseous structures are intact. IMPRESSION: No acute pulmonary process.
[2021-06-30 13:03] LABS: Amphetamine Screen,Urine Not Detected (NotDetected); Barbiturate Screen,Urine Not Detected (NotDetected); Benzodiazepines Screen,Urine Not Detected (NotDetected); Cocaine Screen,Urine Not Detected (NotDetected); Methadone Screen, Urine Not Detected (NotDetected); Opiate Screen,Urine Not Detected (NotDetected); Oxycodone Screen, Urine Not Detected (NotDetected); Phencyclidine Screen,Urine Not Detected (NotDetected); Tricyclic Antidepressant,Urine Not Detected (NotDetected); Urn Cannabinoid Scrn Detected (NotDetected)
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
== END 2021-06-30 15:00 | disposition home or self-care (01) ==
LOC: EC 10:49
DX: F41.9 Anxiety disorder, unspecified (principal); R06.2 Wheezing; F17.200 Nicotine dependence, unspecified, uncomplicated; Z20.822 Contact with and (suspected) exposure to COVID-19
CPT/HCPCS: 71045; 80306; 81025; 82075; 87635; 94640; 99283

== ENCOUNTER 2021-10-25 16:25 | Emergency (ER) | payer OTHER ==
[2021-10-25] MEDS ORDERED: ALBUTEROL NEBULIZED 2.5 MG/3 ML INHALATION STA (16:31)
[2021-10-25] MEDS ORDERED: IPRATROPIUM 0.5 MG/2.5 ML NEBU INHALATION STA (16:31)
[2021-10-25] MEDS ORDERED: methylPREDNISolone SOD SUCCI 125 MG/2 ML VIAL IV STA (16:31)
[2021-10-25 16:45] VITALS: TEMP 98.4
[2021-10-25 16:49] VITALS: RESP 26
[2021-10-25 16:52] LABS: Basophils % (A) 0 %; Eosinophils # (A) 0.1 k/uL (0-0.7); Eosinophils % (A) 1 %; HCT 41.9 % (34.0-46.0); HGB 13.8 gm/dL (11.4-16.0); Lymphocytes # (A) 0.9 k/uL (1.0-4.8); Lymphocytes % (A) 6 %; MCH 30.1 pg (25.0-35.0); MCV 91.1 fL (80.0-100.0); Mean Platelet Volume 8.1; Monocytes # (A) 0.5 k/uL (0-1.0); Monocytes % (A) 3 %; Neutrophils % (A) 90 %; Platelet Count 324 k/uL (150-450); WBC 15.6 k/uL (3.8-10.6)
[2021-10-25 17:01] LABS: AST 74 U/L (14-36); African American GFR (CKD) >90 (>60 ml/min/1.73 sqM); Albumin 4.8 g/dL (3.5-5.0); Alkaline Phosphatase 79 U/L (38-126); Anion Gap 18 mmol/L; Blood Urea Nitrogen 16 mg/dL (7-17); Calcium 9.4 mg/dL (8.4-10.2); Carbon Dioxide 17 mmol/L (22-30); Chloride 105 mmol/L (98-107); Glucose 140 mg/dL (74-99); Non-African American GFR(CKD) 85 (>60 ml/min/1.73 sqM); Potassium 4.5 mmol/L (3.5-5.1); Sodium 140 mmol/L (137-145); Total Bilirubin 0.5 mg/dL (0.2-1.3); Total Protein 7.6 g/dL (6.3-8.2)
--- NOTE | 2021-10-25 17:03 | ED ---
General Adult HPI - General Chief complaint: Anxiety Stated complaint: TREVER Time Seen by Provider: 10/25/21 16:25 Source: patient, EMS, RN notes reviewed, old records reviewed Mode of arrival: EMS Limitations: no limitations - History of Present Illness Initial comments: This is a 27-year-old female presents emergency department with past medical history significant for asthma. Patient states she was diagnosed recently with bronchitis and given steroids. Patient states she went home and her breathing got worse she stated today she was breathing so hard and she was able to get her breath and she passed out. Patient states when she woke up she was hyperventilating and eventually vomited but she still feels as though she's extremely tight and wheezy and is very scared about not being able to breathe again. Patient denies any fever chills per patient states she is coughing up some sputum. Patient denies being on any antibiotics. Patient denies any chest pain or palpitations. Patient denies abdominal pain. Patient denies lightheadedness or dizziness currently. - Related Data Home Medications Medication Instructions Recorded Confirmed Ibuprofen [Motrin Ib] 400 mg PO Q8H PRN 06/04/21 06/04/21 Allergies Allergy/AdvReac Type Severity Reaction Status Date / Time No Known Allergies Allergy Verified 10/25/21 16:45 Review of Systems ROS Statement: Those systems with pertinent positive or pertinent negative responses have been documented in the HPI. ROS Other: All systems not noted in ROS Statement are negative. Past Medical History Past Medical History: No Reported History Additional Past Medical History / Comment(s): pre-eclampsia, IBS History of Any Multi-Drug Resistant Organisms: None Reported Past Surgical History: Section, Cholecystectomy Past Psychological History: Anxiety, Bipolar, Depression, PTSD Smoking Status: Current every day smoker Past Alcohol Use History: None Reported Past Drug Use History: Marijuana - Past Family History Father Family Medical History: Hypertension General Exam - General Exam Comments Initial Comments: GENERAL: Patient is well-developed and well-nourished. Patient is nontoxic and well- hydrated and is in moderate distress. ENT: Neck is soft and supple. No significant lymphadenopathy is noted. Oropharynx is clear. Moist mucous membranes. Neck has full range of motion without eliciting any pain. EYES: The sclera were anicteric and conjunctiva were pink and moist. Extraocular movements were intact and pupils were equal round and reactive to light. Eyelids were unremarkable. PULMONARY: Patient has diffuse wheezing CARDIOVASCULAR: Patient is tachycardic at 130 beats a minute ABDOMEN: Soft and nontender with normal bowel sounds. SKIN: Skin is clear with no lesions or rashes and otherwise unremarkable. NEUROLOGIC: Patient is alert and oriented x3. Cranial nerves II through XII are grossly intact. Motor and sensory are also intact. Normal speech, volume and content. Symmetrical smile. MUSCULOSKELETAL: Normal extremities with adequate strength and full range of motion. LYMPHATICS: No significant lymphadenopathy is noted PSYCHIATRIC: Normal psychiatric evaluation. Limitations: no limitations Course Vital Signs 10/25/21 10/25/21 10/25/21 16:40 16:45 16:58 Temperature 98.4 F Pulse Rate 124 H 100 Respiratory 30 H 26 H Rate Blood Pressure 137/85 O2 Sat by Pulse 95 Oximetry 10/25/21 10/25/21 17:11 17:33 Temperature Pulse Rate 108 H 122 H Respiratory Rate Blood Pressure O2 Sat by Pulse Oximetry Medical Decision Making - Medical Decision Making EKG shows sinus tachycardia at 132 bpm RI interval 146 dresses 86 QT interval is 290 QTC is 360. Patient's EKG shows no ST segment elevation or depression. Patient received 3 breathing treatments with albuterol and Atrovent. Patient also received Solu-Medrol 125 mg. Patient continued to wheeze my intention was to keep the patient one I will begin the room she had received some phone call and insisted she had to leave and refused to stay. Patient was told that it was better that she stay and wait for x-ray results and reactive arrest for lab work but she Refused and Signed out AMA. Patient Was Instructed to Come Back If Symptoms Worsened or Whatever Emergency Room She Was Attending to His over. - Lab Data Result diagrams: 10/25/21 16:46 10/25/21 16:46 Lab Results 10/25/21 10/25/21 10/25/21 Range/Units 16:46 16:46 16:46 WBC 15.6 H (3.8-10.6) k/uL RBC 4.60 (3.80-5.40) m/uL Hgb 13.8 (11.4-16.0) gm/dL Hct 41.9 (34.0-46.0) % MCV 91.1 (80.0-100.0) fL MCH 30.1 (25.0-35.0) pg MCHC 33.0 (31.0-37.0) g/dL RDW 14.0 (11.5-15.5) % Plt Count 324 (150-450) k/uL MPV 8.1 Neutrophils % 90 % Lymphocytes % 6 % Monocytes % 3 % Eosinophils % 1 % Basophils % 0 % Neutrophils # 14.0 H (1.3-7.7) k/uL Lymphocytes # 0.9 L (1.0-4.8) k/uL Monocytes # 0.5 (0-1.0) k/uL Eosinophils # 0.1 (0-0.7) k/uL Basophils # 0.0 (0-0.2) k/uL Sodium 140 (137-145) mmol/L Potassium 4.5 (3.5-5.1) mmol/L Chloride 105 (98-107) mmol/L Carbon Dioxide 17 L (22-30) mmol/L Anion Gap 18 mmol/L BUN 16 (7-17) mg/dL Creatinine 0.95 (0.52-1.04) mg/dL Est GFR (CKD-EPI)AfAm >90 (>60 ml/min/1.73 sqM) Est GFR (CKD-EPI)NonAf 85 (>60 ml/min/1.73 sqM) Glucose 140 H (74-99) mg/dL Plasma Lactic Acid Escobar 6.6 H* (0.7-2.0) mmol/L Calcium 9.4 (8.4-10.2) mg/dL Magnesium 2.0 (1.6-2.3) mg/dL Total Bilirubin 0.5 (0.2-1.3) mg/dL AST 74 H (14-36) U/L ALT 133 H (4-34) U/L Alkaline Phosphatase 79 (38-126) U/L Troponin I (0.000-0.034) ng/mL Total Protein 7.6 (6.3-8.2) g/dL Albumin 4.8 (3.5-5.0) g/dL 10/25/21 Range/Units 16:46 WBC (3.8-10.6) k/uL RBC (3.80-5.40) m/uL Hgb (11.4-16.0) gm/dL Hct (34.0-46.0) % MCV (80.0-100.0) fL MCH (25.0-35.0) pg MCHC (31.0-37.0) g/dL RDW (11.5-15.5) % Plt Count (150-450) k/uL MPV Neutrophils % % Lymphocytes % % Monocytes % % Eosinophils % % Basophils % % Neutrophils # (1.3-7.7) k/uL Lymphocytes # (1.0-4.8) k/uL Monocytes # (0-1.0) k/uL Eosinophils # (0-0.7) k/uL Basophils # (0-0.2) k/uL Sodium (137-145) mmol/L Potassium (3.5-5.1) mmol/L Chloride (98-107) mmol/L Carbon Dioxide (22-30) mmol/L Anion Gap mmol/L BUN (7-17) mg/dL Creatinine (0.52-1.04) mg/dL Est GFR (CKD-EPI)AfAm (>60 ml/min/1.73 sqM) Est GFR (CKD-EPI)NonAf (>60 ml/min/1.73 sqM) Glucose (74-99) mg/dL Plasma Lactic Acid Escobar (0.7-2.0) mmol/L Calcium (8.4-10.2) mg/dL Magnesium (1.6-2.3) mg/dL Total Bilirubin (0.2-1.3) mg/dL AST (14-36) U/L ALT (4-34) U/L Alkaline Phosphatase (38-126) U/L Troponin I 0.015 (0.000-0.034) ng/mL Total Protein (6.3-8.2) g/dL Albumin (3.5-5.0) g/dL Disposition Clinical Impression: Anxiety, Acute bronchospasm, Dyspnea Disposition: Left Against Medical Advice Instructions (If sedation given, give patient instructions): Generalized Anxiety Disorder (ED) Referrals: Kerry Brown MD [Primary Care Provider] - 1-2 days Time of Disposition: 18:40
[2021-10-25 17:09] LABS: ALT 133 U/L (4-34)
[2021-10-25] MEDS ORDERED: LORazepam 2 MG/ML INJ IV STA (17:48)
--- NOTE | 2021-10-25 18:19 | XR ---
EXAMINATION TYPE: XR chest 2V DATE OF EXAM: 10/25/2021 COMPARISON: 06/30/2021 HISTORY: Difficulty breathing TECHNIQUE: Frontal and lateral views of the chest are obtained. FINDINGS: There is no focal air space opacity, pleural effusion, or pneumothorax seen. The cardiac silhouette size is within normal limits. The osseous structures are intact. IMPRESSION: No acute cardiopulmonary process.
[2021-10-25 19:58] VITALS: BP 140/88
[2021-10-25 19:59] VITALS: PULSE 126
== END 2021-10-25 18:40 | disposition left against medical advice (07) ==
LOC: EC 16:25
DX: F41.9 Anxiety disorder, unspecified (principal); J98.01 Acute bronchospasm; R06.00 Dyspnea, unspecified; F31.9 Bipolar disorder, unspecified; F17.200 Nicotine dependence, unspecified, uncomplicated; F12.90 Cannabis use, unspecified, uncomplicated; Z79.899 Other long term (current) drug therapy; Z53.29 Procedure and treatment not carried out because of patient's decision for other reasons
CPT/HCPCS: 36415; 94644; 93005; 80053; 83605; 83735; 84484; 85025; 71046; 99285; 96374; 96375; J2930

== ENCOUNTER 2021-10-27 12:47 | Emergency (ER) | payer OTHER ==
[2021-10-27 13:10] VITALS: BP 132/88; PULSE 84; RESP 18; TEMP 98.1
--- NOTE | 2021-10-27 13:35 | XR ---
EXAMINATION TYPE: XR chest 2V DATE OF EXAM: 10/27/2021 COMPARISON: 10/25/2021 HISTORY: 26 year-old female shortness of breath and cough TECHNIQUE: PA and lateral views FINDINGS: The cardiomediastinal silhouette, aorta, and pulmonary vasculature are within normal limits. Mild int erstitial prominent though slightly improved from prior. Strandy atelectasis lower lungs. No consoli dation or pleural effusion. IMPRESSION: Mild interstitial prominence though slightly improved from prior. Consider bronchitis or underlying a sthma. No focal infiltrate seen.
== END 2021-10-27 14:33 | disposition left against medical advice (07) ==
LOC: EC 12:47
DX: J20.9 Acute bronchitis, unspecified (principal); Z53.21 Procedure and treatment not carried out due to patient leaving prior to being seen by health care provider
CPT/HCPCS: 71046; 99499

== ENCOUNTER 2022-08-15 13:08 | Emergency (ER) | payer OTHER ==
[2022-08-15 13:55] LABS: Basophils % (A) 0 %; Eosinophils % (A) 0 %; HCT 38.5 % (34.0-46.0); HGB 13.4 gm/dL (11.4-16.0); Lymphocytes # (A) 2.6 k/uL (1.0-4.8); Lymphocytes % (A) 23 %; MCH 30.6 pg (25.0-35.0); MCHC 34.9 g/dL (31.0-37.0); MCV 87.8 fL (80.0-100.0); Mean Platelet Volume 8.1; Monocytes # (A) 0.6 k/uL (0-1.0); Monocytes % (A) 5 %; Neutrophils # (A) 7.8 k/uL (1.3-7.7); Neutrophils % (A) 68 %; Platelet Count 299 k/uL (150-450); RBC 4.39 m/uL (3.80-5.40); RDW 13.8 % (11.5-15.5); WBC 11.4 k/uL (3.8-10.6)
[2022-08-15 14:11] LABS: ALT 23 U/L (4-34); AST 21 U/L (14-36); African American GFR (CKD) >90 (>60 ml/min/1.73 sqM); Alkaline Phosphatase 91 U/L (38-126); Anion Gap 8 mmol/L; Blood Urea Nitrogen 15 mg/dL (7-17); Calcium 9.1 mg/dL (8.4-10.2); Carbon Dioxide 22 mmol/L (22-30); Chloride 109 mmol/L (98-107); Glucose 93 mg/dL (74-99); Non-African American GFR(CKD) >90 (>60 ml/min/1.73 sqM); Potassium 3.8 mmol/L (3.5-5.1); Sodium 139 mmol/L (137-145); Total Bilirubin 0.2 mg/dL (0.2-1.3); Total Protein 6.9 g/dL (6.3-8.2)
[2022-08-15 14:19] LABS: INR 0.9 (<1.2); Partial Thromboplastin Time 24.4 sec (22.0-30.0); Prothrombin Time 10.1 sec (9.0-12.0)
--- NOTE | 2022-08-15 15:42 | XR ---
EXAMINATION TYPE: XR chest 1V portable DATE OF EXAM: 08/15/2022 3:35 PM COMPARISON: Chest radiographs from 10/27/2021 TECHNIQUE: XR chest 1V portable Frontal view of the chest. CLINICAL INDICATION:Female, 27 years old with history of cp; FINDINGS: Lungs/Pleura: There is no evidence of pleural effusion, focal consolidation, or pneumothorax. Pulmonary vascularity: Unremarkable. Heart/mediastinum: Cardiomediastinal silhouette is unremarkable. Musculoskeletal: No acute osseous pathology. IMPRESSION: No acute cardiopulmonary disease/process.
--- NOTE | 2022-08-15 15:58 | ED ---
Chest Pain HPI - General Chief Complaint: Chest Pain Stated Complaint: Poss Heart Attack Time Seen by Provider: 08/15/22 15:15 Source: patient, RN notes reviewed, old records reviewed Mode of arrival: wheelchair Limitations: no limitations - History of Present Illness Initial Comments: This is a 27-year-old female to the emergency department for evaluation today. Patient Dese for evaluation of chest pain chest pain shortness of breath lasting for a day. No prior history of similar chest pain no significant issue with shortness of breath no history of smoking, no recent traumas fever cough or congestion of travel history no sick contacts no leg pain or swelling. Patient does have a family history of heart disease concerned that she may be having heart attack. MD Complaint: chest pain -: days(s) Onset: during rest, during exertion Pain Location: substernal, left chest Pain Radiation: LUE Severity: mild Severity scale (1-10): 3 Quality: tightness Consistency: constant Improves With: nothing Worsens With: nothing Anginal Symptoms: sense of impending doom Other Symptoms: palpitations Treatments Prior to Arrival: none - Related Data Home Medications Medication Instructions Recorded Confirmed Amoxicillin 500 mg PO BID 08/15/22 08/15/22 Ondansetron Odt [Zofran ODT] 4 mg PO Q8H PRN 08/15/22 08/15/22 Allergies Allergy/AdvReac Type Severity Reaction Status Date / Time No Known Allergies Allergy Verified 08/15/22 15:58 Review of Systems ROS Statement: Those systems with pertinent positive or pertinent negative responses have been documented in the HPI. ROS Other: All systems not noted in ROS Statement are negative. Past Medical History Past Medical History: No Reported History Additional Past Medical History / Comment(s): pre-eclampsia, IBS History of Any Multi-Drug Resistant Organisms: None Reported Past Surgical History: Section, Cholecystectomy Past Psychological History: Anxiety, Bipolar, Depression, PTSD Smoking Status: Current every day smoker Past Alcohol Use History: None Reported Past Drug Use History: Marijuana - Past Family History Father Family Medical History: Hypertension General Exam Limitations: no limitations General appearance: anxious Head exam: Present: atraumatic, normocephalic, normal inspection Eye exam: Present: normal appearance, PERRL, EOMI. Absent: scleral icterus, conjunctival injection, periorbital swelling ENT exam: Present: normal exam, mucous membranes moist Neck exam: Present: normal inspection. Absent: tenderness, meningismus, lymphadenopathy Respiratory exam: Present: normal lung sounds bilaterally. Absent: respiratory distress, wheezes, rales, rhonchi, stridor Cardiovascular Exam: Present: regular rate, normal rhythm, normal heart sounds. Absent: systolic murmur, diastolic murmur, rubs, gallop, clicks GI/Abdominal exam: Present: soft, normal bowel sounds. Absent: distended, tenderness, guarding, rebound, rigid Extremities exam: Present: normal inspection, full ROM, normal capillary refill. Absent: tenderness, pedal edema, joint swelling, calf tenderness Back exam: Present: normal inspection Neurological exam: Present: alert, oriented X3, CN II-XII intact Psychiatric exam: Present: normal affect, normal mood Skin exam: Present: warm, dry, intact, normal color. Absent: rash Course Vital Signs 08/15/22 08/15/22 13:10 16:35 Temperature 99.0 F 98.4 F Pulse Rate 97 105 H Respiratory 20 19 Rate Blood Pressure 148/88 141/93 O2 Sat by Pulse 98 96 Oximetry - Reevaluation(s) Reevaluation #1: 08/15/22 Medical records reviewed Reevaluation #2: 08/15/22 Patient symptoms are improved Reevaluation #3: 08/15/22 Patient informed results and questions answered Reevaluation #4: 08/15/22 Was pt. sent in by a medical professional or institution? @ -no Did you speak to anyone other than the patient for history? @ -no Did you review nursing and triage notes? @ -agree Were old charts reviewed? @ -yes Differential Diagnosis? @ -prior EKG interpreted by me (3pts min.)? @ -yes X-rays interpreted by me (1pt min.)? @ -yes CT interpreted by me (1pt min.)? @ -no U/S interpreted by me (1pt. min.)? @ -no What testing was considered but not performed? (CT, X-rays, U/S, labs)? Why? @ -no What meds were considered but not given? Why? @ -no Did you discuss the management of the patient with other professionals? @ -no Did you reconcile home meds? @ -no Was smoking cessation discussed for >3mins.? @ -no Was critical care preformed (if so, how long)? @ -no Were there social determinants of health that impacted care today? How? (Homelessness, low income, unemployed, alcoholism, drug addiction, transportation, low edu. Level, literacy, decrease access to med. care, longterm, rehab)? @ -no Was there de-escalation of care discussed even if they declined? (Discuss DNR or withdrawal of care, Hospice)? @ -no What co-morbidities impacted this encounter? (DM, HTN, Smoking, COPD, CAD, Cancer, CVA, Hep., AIDS, mental health diagnosis, sleep apnea, morbid obesity)? @ -none Was patient admitted / discharged? @ -27 female to the emergency department for evaluation of chest pain nonspecific. Patient has no significant cardiac risk factors aside from have family history the patient is a young age, patient has normal EKG here in the ER troponin negative patient can be discharged home Discharge Undiagnosed new problem with uncertain prognosis? @ -no Drug Therapy requiring intensive monitoring for toxicity (Heparin, Nitro, Insulin, Cardizem)? @ -no Were any procedures done? @ -no Diagnosis/symptom? @ -Chest pain Acute, or Chronic, or Acute on Chronic? @ -acute Uncomplicated (without systemic symptoms) or Complicated (systemic symptoms)? @ -complicated Side effects of treatment? @ -no Exacerbation, Progression, or Severe Exacerbation] @ -no Poses a threat to life or bodily function? @ -yes many causes of chest pain that can be life-threatening Chest Pain MDM - MDM 27 female to the emergency department for evaluation of chest pain nonspecific. Patient has no significant cardiac risk factors aside from have family history the patient is a young age, patient has normal EKG here in the ER troponin negative patient can be discharged home Disposition Clinical Impression: Chest pain, Atypical chest pain Disposition: HOME SELF-CARE Condition: Fair Instructions (If sedation given, give patient instructions): Chest Pain (ED) Is patient prescribed a controlled substance at d/c from ED?: No Referrals: None,Stated [REFERRING] - 1-2 days Time of Disposition: 16:00
[2022-08-15 16:41] VITALS: BP 141/93; PULSE 105; RESP 19; TEMP 98.4
== END 2022-08-15 16:29 | disposition home or self-care (01) ==
LOC: EC 13:08
DX: R07.89 Other chest pain (principal); F31.9 Bipolar disorder, unspecified; F41.9 Anxiety disorder, unspecified; F17.200 Nicotine dependence, unspecified, uncomplicated; F12.90 Cannabis use, unspecified, uncomplicated; Z79.899 Other long term (current) drug therapy
CPT/HCPCS: 36415; 71045; 80053; 84484; 85025; 85610; 85730; 93005; 99285

== ENCOUNTER 2023-01-05 14:07 | Emergency (ER) | payer BC, OTHER ==
[2023-01-05 15:06] VITALS: TEMP 98.4
--- NOTE | 2023-01-05 15:13 | ED ---
Lower Extremity Injury HPI - General Source: patient, RN notes reviewed Mode of arrival: ambulatory Limitations: no limitations <Lorena Faulkner - Last Filed: 01/05/23 15:12> <Lewis Trujillo - Last Filed: 01/05/23 16:18> - General Chief Complaint: Extremity Injury, Lower Stated Complaint: fall-knee injury Time Seen by Provider: 01/05/23 15:12 - History of Present Illness Initial Comments: patient is a 27-year-old female presenting to the ER with a chief complaint of a left ankle injury. Patient states she rolled her ankle while walking into the er with her son. Bj fevers or chills. (Lorena Faulkner) - Related Data Home Medications Medication Instructions Recorded Confirmed Amoxicillin 500 mg PO BID 08/15/22 08/15/22 Ondansetron Odt [Zofran ODT] 4 mg PO Q8H PRN 08/15/22 08/15/22 Allergies Allergy/AdvReac Type Severity Reaction Status Date / Time No Known Allergies Allergy Verified 01/05/23 14:49 Review of Systems ROS Other: All systems not noted in ROS Statement are negative. <Lorena Faulkner - Last Filed: 01/05/23 15:12> ROS Other: All systems not noted in ROS Statement are negative. <Lewis Trujillo - Last Filed: 01/05/23 16:18> ROS Statement: Those systems with pertinent positive or pertinent negative responses have been documented in the HPI. Past Medical History Past Medical History: No Reported History Additional Past Medical History / Comment(s): pre-eclampsia, IBS History of Any Multi-Drug Resistant Organisms: None Reported Past Surgical History: Section, Cholecystectomy Past Psychological History: Anxiety, Bipolar, Depression, PTSD Smoking Status: Current every day smoker Past Alcohol Use History: None Reported Past Drug Use History: Marijuana - Past Family History Father Family Medical History: Hypertension <Lorena Faulkner - Last Filed: 01/05/23 15:12> General Exam Limitations: no limitations <Lorena Faulkner - Last Filed: 01/05/23 15:12> General appearance: alert, in no apparent distress Head exam: Present: atraumatic, normocephalic Eye exam: Present: normal appearance, PERRL ENT exam: Present: normal exam Neck exam: Present: normal inspection. Absent: tenderness, meningismus Respiratory exam: Present: normal lung sounds bilaterally. Absent: respiratory distress, wheezes Cardiovascular Exam: Present: regular rate, normal rhythm GI/Abdominal exam: Present: soft. Absent: distended, tenderness Extremities exam: Present: other (Mild soft tissue swelling over the lateral malleolus, no deformity, distal pulses intact) Neurological exam: Present: alert, oriented X3, CN II-XII intact. Absent: motor sensory deficit Psychiatric exam: Present: normal affect, normal mood Skin exam: Present: warm, dry, intact <Lewis Trujillo - Last Filed: 01/05/23 16:18> - General Exam Comments Initial Comments: Visual Physical Exam Vital signs reviewed General: Well-appearing, nontoxic, no acute distress. Head: Normocephalic, atraumatic Eyes: PERRLA, EOMI ENT: Airway patent Chest: Nonlabored breathing Skin: No visual rash, normal skin tone Neuro: Alert and oriented 3 Musculoskeletal: No gross abnormalities (Lorena Faulkner) Course Vital Signs 01/05/23 14:47 Temperature 98.4 F Pulse Rate 81 Respiratory 20 Rate Blood Pressure 127/84 O2 Sat by Pulse 99 Oximetry Medical Decision Making <Lorena Faulkner - Last Filed: 01/05/23 15:12> <Lewis Trujillo - Last Filed: 01/05/23 16:18> - Medical Decision Making I performed the quick note portion of the exam. Electronically signed by Lorena Faulkner PA-C (Lorena Faulkner) Was pt. sent in by a medical professional or institution (SHANNAN [facility], STUCCO APPLICATOR, urgent care, hospital, or custodial...) When possible be specific @ -No Did you speak to anyone other than the patient for history (EMS, parent, family, police, friend...)? What history was obtained from this source @ -No Did you review nursing and triage notes (agree or disagree)? Why? @ -I reviewed and agree with nursing and triage notes Were old charts reviewed (outside hosp., previous admission, EMS record, old EKG, old radiological studies, urgent care reports/EKG's, custodial records)? Report findings @ -No old charts were reviewed Differential Diagnosis (chest pain, altered mental status, abdominal pain women, abdominal pain men, vaginal bleeding, weakness, fever, dyspnea, syncope, headache, dizziness, GI bleed, back pain, seizure, CVA, palpatations, mental health, musculoskeletal)? @ Differential Musculoskeletal Muscular strain, contusion, ligament sprain, fracture, arthritis, septic arthritis, bursitis, cellulitis, muscle spasm, nerve compression, DVT, arterial occlusion, herpes zoster, electrolyte abnormality, tumor.... This is not meant to be in all inclusive list EKG interpreted by me (3pts min.). @ -As above X-rays interpreted by me (1pt min.). @ X-ray negative for fracture or dislocation of the foot or ankle on the left. CT interpreted by me (1pt min.). @ -None done U/S interpreted by me (1pt. min.). @ -None done What testing was considered but not performed or refused? (CT, X-rays, U/S, labs)? Why? @ -None What meds were considered but not given or refused? Why? @ -None Did you discuss the management of the patient with other professionals (professionals i.e. , PA, STUCCO APPLICATOR, lab, RT, psych nurse, social work administrator, grain roaster, teacher, commercial credit officer, pillowcase cleaner)? Give summary @ -No Was smoking cessation discussed for >3mins.? @ -No Was critical care preformed (if so, how long)? @ -No Were there social determinants of health that impacted care today? How? (Homelessness, low income, unemployed, alcoholism, drug addiction, transportation, low edu. Level, literacy, decrease access to med. care, [facility], rehab)? @ -No Was there de-escalation of care discussed even if they declined (Discuss DNR or withdrawal of care, Hospice)? DNR status @ -No What co-morbidities impacted this encounter? (DM, HTN, Smoking, COPD, CAD, Cancer, CVA, ARF, Chemo, Hep., AIDS, mental health diagnosis, sleep apnea, morbid obesity)? @ -None Was patient admitted / discharged? Hospital course, mention meds given and route, prescriptions, significant lab abnormalities, going to OR and other pertinent info. @ -37-year-old female with left ankle injury, x-rays negative for fracture dislocation. Patient has mild soft tissue swelling over the lateral malleolus. Patient stable for discharge with rest, ice, elevation. She can take [id number] Tylenol or Motrin for pain. Follow with primary care provider. Undiagnosed new problem with uncertain prognosis? @ -No Drug Therapy requiring intensive monitoring for toxicity (Heparin, Nitro, Insulin, Cardizem)? @ -No Were any procedures done? @ -No Diagnosis/symptom? @ -Ankle sprain Acute, or Chronic, or Acute on Chronic? @ -Acute Uncomplicated (without systemic symptoms) or Complicated (systemic symptoms)? @ -default Side effects of treatment? @ -No Exacerbation, Progression, or Severe Exacerbation? @ -No Poses a threat to life or bodily function? How? (Chest pain, USA, CT, pneumonia, PE, COPD, DKA, ARF, appy, cholecystitis, CVA, Diverticulitis, Homicidal, Suicidal, threat to staff... and all critical care pts) @ -No (Lewis Trujillo) Disposition <Lorena Faulkner - Last Filed: 01/05/23 15:12> Is patient prescribed a controlled substance at d/c from ED?: No Time of Disposition: 16:18 <Lewis Trujillo - Last Filed: 01/05/23 16:18> Clinical Impression: Ankle sprain Disposition: HOME SELF-CARE Condition: Good Instructions (If sedation given, give patient instructions): Ankle Sprain (ED) Referrals: Kerry Brown MD [Primary Care Provider] - 1-2 days
--- NOTE | 2023-01-05 17:02 | XR ---
EXAMINATION TYPE: XR foot complete LT, XR ankle complete LT DATE OF EXAM: 01/05/2023 3:38 PM CLINICAL INDICATION:Female, 27 years old with history of pain; [facility] COMPARISON: None TECHNIQUE: XR foot complete LT, XR ankle complete LT examined in the AP, oblique, and lateral project ions. FINDINGS: No evidence of any acute osseous pathology. Soft tissue swelling around the ankle. Joints are preserv ed. IMPRESSION: No evidence of acute fracture.
[2023-01-05 18:15] VITALS: BP 138/85; PULSE 77; RESP 18
== END 2023-01-05 18:00 | disposition home or self-care (01) ==
LOC: EC 14:07
DX: S93.402A Sprain of unspecified ligament of left ankle, initial encounter (principal); F17.200 Nicotine dependence, unspecified, uncomplicated; F12.90 Cannabis use, unspecified, uncomplicated; Z86.59 Personal history of other mental and behavioral disorders; X50.1XXA Overexertion from prolonged static or awkward postures, initial encounter; Y93.01 Activity, walking, marching and hiking
CPT/HCPCS: 99283

== ENCOUNTER 2023-01-14 02:52 | Emergency (ER) | payer BC, OTHER ==
[2023-01-14 03:16] VITALS: RESP 18; TEMP 98.1
[2023-01-14 03:35] LABS: Basophils # (A) 0.1 k/uL (0-0.2); Basophils % (A) 0 %; Eosinophils % (A) 0 %; HCT 41.1 % (34.0-46.0); HGB 14.1 gm/dL (11.4-16.0); Lymphocytes # (A) 2.6 k/uL (1.0-4.8); Lymphocytes % (A) 21 %; MCH 30.5 pg (25.0-35.0); MCHC 34.3 g/dL (31.0-37.0); Mean Platelet Volume 7.9; Monocytes # (A) 0.7 k/uL (0-1.0); Monocytes % (A) 5 %; Neutrophils # (A) 8.9 k/uL (1.3-7.7); Neutrophils % (A) 70 %; Platelet Count 247 k/uL (150-450); RBC 4.62 m/uL (3.80-5.40); RDW 13.5 % (11.5-15.5); WBC 12.6 k/uL (3.8-10.6)
[2023-01-14 03:51] LABS: INR 0.9 (<1.2); Prothrombin Time 10.5 sec (10.0-12.5)
[2023-01-14 03:55] LABS: ALT 213 U/L (4-34); AST 83 U/L (14-36); African American GFR (CKD) >90 (>60 ml/min/1.73 sqM); Albumin 4.3 g/dL (3.5-5.0); Alkaline Phosphatase 70 U/L (38-126); Anion Gap 14 mmol/L; Blood Urea Nitrogen 20 mg/dL (7-17); Calcium 9.6 mg/dL (8.4-10.2); Carbon Dioxide 19 mmol/L (22-30); Chloride 105 mmol/L (98-107); Glucose 102 mg/dL (74-99); Non-African American GFR(CKD) >90 (>60 ml/min/1.73 sqM); Potassium 3.9 mmol/L (3.5-5.1); Sodium 138 mmol/L (137-145); Total Bilirubin 0.4 mg/dL (0.2-1.3); Total Protein 7.4 g/dL (6.3-8.2)
[2023-01-14] MEDS ORDERED: IPRATROPIUM-ALBUTEROL 3 ML NEB INHALATION STA (04:09)
[2023-01-14] MEDS ORDERED: BENZONATATE 100 MG CAP PO STA (04:38)
[2023-01-14] MEDS ORDERED: DEXAMETHASONE SOD PHOSPHATE 10 MG/ML 1 ML VIAL IVP STA (04:38)
--- NOTE | 2023-01-14 04:41 | ED ---
Recheck HPI - General Chief Complaint: Shortness of Breath Stated Complaint: SOB,Chest Pain Time Seen by Provider: 01/14/23 04:08 Source: patient, RN notes reviewed, old records reviewed Mode of arrival: ambulatory Limitations: no limitations - History of Present Illness Initial Comments: This is a 27-year-old female the ER stay. Patient presents for recurrent evaluation. Patient has been seen earlier today for shortness of breath coming in tonight this morning for persistent asthma or asthma exacerbation. Sensation states she can't sleep because she is having persistent cough and shortness of breath especially change of position. She has fever and chills at times. But symptoms are just not improving despite breathing treatments and steroids. Current chest painpatient states she was at a different emergency department and discharge about getting breathing treatment which she feels she needs MD Complaint: other (Recheck regarding asthma exacerbation and bronchitis) -: days(s) Returns Today for: other (Worsening wheezing) Symptoms Since Prior Visit: no new symptoms Associated Symptoms: fever, chest pain, shortness of breath Treatments Prior to Arrival: other - Related Data Home Medications Medication Instructions Recorded Confirmed Amoxicillin 500 mg PO BID 08/15/22 08/15/22 Ondansetron Odt [Zofran ODT] 4 mg PO Q8H PRN 08/15/22 08/15/22 Previous Rx's Medication Instructions Recorded Azithromycin [Zithromax] 500 mg PO DAILY #5 tab 01/14/23 Benzonatate [Tessalon Perles] 100 mg PO TID PRN #20 capsule 01/14/23 Allergies Allergy/AdvReac Type Severity Reaction Status Date / Time No Known Allergies Allergy Verified 01/05/23 14:49 Review of Systems ROS Statement: Those systems with pertinent positive or pertinent negative responses have been documented in the HPI. ROS Other: All systems not noted in ROS Statement are negative. Past Medical History Past Medical History: No Reported History Additional Past Medical History / Comment(s): pre-eclampsia, IBS History of Any Multi-Drug Resistant Organisms: None Reported Past Surgical History: Section, Cholecystectomy Past Psychological History: Anxiety, Bipolar, Depression, PTSD Smoking Status: Current every day smoker Past Alcohol Use History: None Reported Past Drug Use History: Marijuana - Past Family History Father Family Medical History: Hypertension General Exam Limitations: no limitations General appearance: alert, in no apparent distress Head exam: Present: atraumatic, normocephalic, normal inspection Eye exam: Present: normal appearance, PERRL, EOMI. Absent: scleral icterus, conjunctival injection, periorbital swelling ENT exam: Present: normal exam, mucous membranes moist Neck exam: Present: normal inspection. Absent: tenderness, meningismus, lymphadenopathy Respiratory exam: Present: respiratory distress, wheezes, decreased breath sounds, prolonged expiratory. Absent: rales, rhonchi, stridor Cardiovascular Exam: Present: regular rate, normal rhythm, normal heart sounds. Absent: systolic murmur, diastolic murmur, rubs, gallop, clicks GI/Abdominal exam: Present: soft, normal bowel sounds. Absent: distended, tenderness, guarding, rebound, rigid Extremities exam: Present: normal inspection, full ROM, normal capillary refill. Absent: tenderness, pedal edema, joint swelling, calf tenderness Back exam: Present: normal inspection Neurological exam: Present: alert, oriented X3, CN II-XII intact Psychiatric exam: Present: normal affect, normal mood Skin exam: Present: warm, dry, intact, normal color. Absent: rash Course Vital Signs 01/14/23 01/14/23 01/14/23 02:57 04:38 05:54 Temperature 98.1 F Pulse Rate 73 72 Respiratory 18 18 18 Rate Blood Pressure 143/94 134/82 O2 Sat by Pulse 96 97 Oximetry - Reevaluation(s) Reevaluation #1: 01/14/23 Medical records reviewed Reevaluation #2: 01/14/23 Patient symptoms are persistent although dramatically improved here in the ER Reevaluation #3: 01/14/23 Patient informed results questions answered Reevaluation #4: 01/14/23 05:03 Was pt. sent in by a medical professional or institution (, PA, CYLINDER SANDER OPERATOR, urgent care, hospital, or usp...) When possible be specific @ -no Did you speak to anyone other than the patient for history (EMS, parent, family, police, friend...)? What history was obtained from this source @ -no Did you review nursing and triage notes (agree or disagree)? Why? @ -agree Are old charts reviewed (outside hosp., previous admission, EMS record, old EKG, old radiological studies, urgent care reports/EKG's, usp records)? Report findings @ -yes Differential Diagnosis (chest pain, altered mental status, abdominal pain women, abdominal pain men, vaginal bleeding, weakness, fever, dyspnea, syncope, headache, dizziness, GI bleed, back pain, seizure, CVA, palpatations, mental health, musculoskeletal)? @ -prior EKG interpreted by me (3pts min.). @ -no X-rays interpreted by me (1pt min.). @ -yes negative for acute disease CT interpreted by me (1pt min.). @ -no U/S interpreted by me (1pt. min.). @ -no What testing was considered but not performed or refused? (CT, X-rays, U/S, labs)? Why? @ -none What meds were considered but not given or refused? Why? @ -none Did you discuss the management of the patient with other professionals (professionals i.e. , PA, CYLINDER SANDER OPERATOR, lab, RT, psych nurse, social and human services assistant, divorce lawyer, teacher, deck officer, heel caser)? Give summary @ -no Was smoking cessation discussed for >3mins.? @ -no Was critical care preformed (if so, how long)? @ -no Were there social determinants of health that impacted care today? How? (Homelessness, low income, unemployed, alcoholism, drug addiction, transportation, low edu. Level, literacy, decrease access to med. care, [facility], rehab)? @ -none Was there de-escalation of care discussed even if they declined (Discuss DNR or withdrawal of care, Hospice)? DNR status @ -no What co-morbidities impacted this encounter? (DM, HTN, Smoking, COPD, CAD, Cancer, CVA, ARF, Chemo, Hep., AIDS, mental health diagnosis, sleep apnea, morbid obesity)? @ -none Was patient admitted / discharged? Hospital course, mention meds given and route, prescriptions, significant lab abnormalities, going to OR and other perti nent info. @ - 27 female to the emergency department for evaluation of persistent bronchitis with likely underlying walking pneumonia. Patient restart antibiotics persistent breathing treatments at home and patient feels better here in the ER with breathing treatments. Patient is okay for discharge home Discharge Undiagnosed new problem with uncertain prognosis? @ -no Drug Therapy requiring intensive monitoring for toxicity (Heparin, Nitro, Insulin, Cardizem)? @ -no Were any procedures done? @ -no Diagnosis/symptom? @ -Asthma, walking pneumonia Acute, or Chronic, or Acute on Chronic? @ -Acute Uncomplicated (without systemic symptoms) or Complicated (systemic symptoms)? @ -Complicated Side effects of treatment? @ -no Exacerbation, Progression, or Severe Exacerbation? @ -exacerbation Poses a threat to life or bodily function? How? (Chest pain, USA, [place], pneumonia, PE, COPD, DKA, ARF, appy, cholecystitis, CVA, Diverticulitis, Homicidal, Suicidal, threat to staff... and all critical care pts) @ -yes with significant respiratory distress Reevaluation #5: 01/14/23 05:05 Differential Dyspnea: Coronary syndrome, arrhythmia, tamponade, asthma, COPD, pulmonary embolism, pneumonia, pneumothorax, pulmonary effusion, anaphylaxis, diabetic ketoacidosis, flailed chest, pulmonary contusion, diaphragmatic rupture, anemia, neuromuscular, this is not meant to be an all-inclusive list. Medical Decision Making - Medical Decision Making 27 female to the emergency department for evaluation of persistent bronchitis with likely underlying walking pneumonia. Patient restart antibiotics persistent breathing treatments at home and patient feels better here in the ER with breathing treatments. Patient is okay for discharge home patient also has persistent influenza - Lab Data Result diagrams: 01/14/23 03:04 01/14/23 03:04 Lab Results 01/14/23 01/14/23 01/14/23 Range/Units 03:04 03:04 03:04 WBC 12.6 H (3.8-10.6) k/uL RBC 4.62 (3.80-5.40) m/uL Hgb 14.1 (11.4-16.0) gm/dL Hct 41.1 (34.0-46.0) % MCV 89.0 (80.0-100.0) fL MCH 30.5 (25.0-35.0) pg MCHC 34.3 (31.0-37.0) g/dL RDW 13.5 (11.5-15.5) % Plt Count 247 (150-450) k/uL MPV 7.9 Neutrophils % 70 % Lymphocytes % 21 % Monocytes % 5 % Eosinophils % 0 % Basophils % 0 % Neutrophils # 8.9 H (1.3-7.7) k/uL Lymphocytes # 2.6 (1.0-4.8) k/uL Monocytes # 0.7 (0-1.0) k/uL Eosinophils # 0.0 (0-0.7) k/uL Basophils # 0.1 (0-0.2) k/uL PT 10.5 (10.0-12.5) sec INR 0.9 (<1.2) APTT 23.0 (22.0-30.0) sec Sodium 138 (137-145) mmol/L Potassium 3.9 (3.5-5.1) mmol/L Chloride 105 (98-107) mmol/L Carbon Dioxide 19 L (22-30) mmol/L Anion Gap 14 mmol/L BUN 20 H (7-17) mg/dL Creatinine 0.87 (0.52-1.04) mg/dL Est GFR (CKD-EPI)AfAm >90 (>60 ml/min/1.73 sqM) Est GFR (CKD-EPI)NonAf >90 (>60 ml/min/1.73 sqM) Glucose 102 H (74-99) mg/dL Calcium 9.6 (8.4-10.2) mg/dL Total Bilirubin 0.4 (0.2-1.3) mg/dL AST 83 H (14-36) U/L ALT 213 H (4-34) U/L Alkaline Phosphatase 70 (38-126) U/L Troponin I (0.000-0.034) ng/mL Total Protein 7.4 (6.3-8.2) g/dL Albumin 4.3 (3.5-5.0) g/dL Influenza Type A (PCR) (Not Detectd) Influenza Type B (PCR) (Not Detectd) RSV (PCR) (Not Detectd) SARS-CoV-2 (PCR) (Not Detectd) 01/14/23 01/14/23 Range/Units 03:04 03:04 WBC (3.8-10.6) k/uL RBC (3.80-5.40) m/uL Hgb (11.4-16.0) gm/dL Hct (34.0-46.0) % MCV (80.0-100.0) fL MCH (25.0-35.0) pg MCHC (31.0-37.0) g/dL RDW (11.5-15.5) % Plt Count (150-450) k/uL MPV Neutrophils % % Lymphocytes % % Monocytes % % Eosinophils % % Basophils % % Neutrophils # (1.3-7.7) k/uL Lymphocytes # (1.0-4.8) k/uL Monocytes # (0-1.0) k/uL Eosinophils # (0-0.7) k/uL Basophils # (0-0.2) k/uL PT (10.0-12.5) sec INR (<1.2) APTT (22.0-30.0) sec Sodium (137-145) mmol/L Potassium (3.5-5.1) mmol/L Chloride (98-107) mmol/L Carbon Dioxide (22-30) mmol/L Anion Gap mmol/L BUN (7-17) mg/dL Creatinine (0.52-1.04) mg/dL Est GFR (CKD-EPI)AfAm (>60 ml/min/1.73 sqM) Est GFR (CKD-EPI)NonAf (>60 ml/min/1.73 sqM) Glucose (74-99) mg/dL Calcium (8.4-10.2) mg/dL Total Bilirubin (0.2-1.3) mg/dL AST (14-36) U/L ALT (4-34) U/L Alkaline Phosphatase (38-126) U/L Troponin I <0.012 (0.000-0.034) ng/mL Total Protein (6.3-8.2) g/dL Albumin (3.5-5.0) g/dL Influenza Type A (PCR) Detected A (Not Detectd) Influenza Type B (PCR) Not Detected (Not Detectd) RSV (PCR) Not Detected (Not Detectd) SARS-CoV-2 (PCR) Not Detected (Not Detectd) - EKG Data -: EKG Interpreted by Me (EKG is sinus bradycardia 51 OH 131 QRS 90 QTC 375) - Radiology Data Radiology results: report reviewed (Chest x-rays negative for acute disease), image reviewed Disposition Clinical Impression: Asthma with status asthmaticus, Community acquired pneumonia, Influenza, Walking pneumonia Disposition: HOME SELF-CARE Condition: Good Instructions (If sedation given, give patient instructions): Bacterial Pneumonia (ED) Prescriptions: Benzonatate [Tessalon Perles] 100 mg PO TID PRN #20 capsule PRN Reason: Cough Azithromycin [Zithromax] 500 mg PO DAILY #5 tab Is patient prescribed a controlled substance at d/c from ED?: No Referrals: Kerry Brown MD [Primary Care Provider] - 1-2 days Time of Disposition: 05:00
[2023-01-14] MEDS ORDERED: AZITHROMYCIN 500 MG TAB PO STA (05:01)
[2023-01-14] MEDS ORDERED: cefTRIAXone IN SWFI 1,000 MG/10 ML SYRINGE IVP STA (05:01)
[2023-01-14 06:13] VITALS: BP 134/82; PULSE 72
--- NOTE | 2023-01-14 06:45 | XR ---
EXAMINATION TYPE: XR chest 2V DATE OF EXAM: 01/14/2023 COMPARISON: 08/15/2022 HISTORY: 28-year-old female shortness of breath, difficulty breathing TECHNIQUE: PA and lateral views FINDINGS: The cardiomediastinal silhouette, aorta, and pulmonary vasculature are within normal limits. Lungs an d pleural spaces are clear. IMPRESSION: No acute cardiopulmonary process.
== END 2023-01-14 05:55 | disposition home or self-care (01) ==
LOC: EC 02:52
DX: J45.902 Unspecified asthma with status asthmaticus (principal); J10.00 Influenza due to other identified influenza virus with unspecified type of pneumonia; F17.200 Nicotine dependence, unspecified, uncomplicated; F12.90 Cannabis use, unspecified, uncomplicated; Z20.822 Contact with and (suspected) exposure to COVID-19; Z90.49 Acquired absence of other specified parts of digestive tract
CPT/HCPCS: 36415; 93005; 80053; 84484; 85025; 85610; 85730; 87636; 71046; 99285; 96374; 96375; J1100; J0696

== ENCOUNTER 2023-01-15 11:36 | Emergency (ER) | payer BC, OTHER ==
[2023-01-15 11:52] VITALS: TEMP 97.8
--- NOTE | 2023-01-15 12:54 | ED ---
General Adult HPI - General Chief complaint: Shortness of Breath Stated complaint: TREVER Time Seen by Provider: 01/15/23 11:43 Source: patient, EMS Mode of arrival: EMS - History of Present Illness Initial comments: 27-year-old female with a past medical history significant for hypertension and asthma presenting to the ED with a chief complaint of dyspnea. She states for the past week and a half has had problems with cough, dyspnea, and chest pain/back especially with movement, coughing, deep breath. Patient notes has been seen at [facility] four times for this has been seen here yesterday for this as well. Reports that she has completed some antibiotics since initial evaluation and a Medrol Dosepak as well. Despite this states ongoing symptoms prompting presentation to the ED for further evaluation. Yesterday, patient had a chest x-ray that showed no acute process. Patient empirically started on treatment for pneumonia. Was given a shot of ceftriaxone here, Decadron, and prescription for azithromycin. Patient also does report some anxiety. No Suicidal or homicidal ideation. No other complaints. - Related Data Home Medications Medication Instructions Recorded Confirmed Amoxicillin 500 mg PO BID 08/15/22 08/15/22 Ondansetron Odt [Zofran ODT] 4 mg PO Q8H PRN 08/15/22 08/15/22 Previous Rx's Medication Instructions Recorded Azithromycin [Zithromax] 500 mg PO DAILY #5 tab 01/14/23 Benzonatate [Tessalon Perles] 100 mg PO TID PRN #20 capsule 01/14/23 Allergies Allergy/AdvReac Type Severity Reaction Status Date / Time No Known Allergies Allergy Verified 01/15/23 11:44 Review of Systems ROS Statement: Those systems with pertinent positive or pertinent negative responses have been documented in the HPI. ROS Other: All systems not noted in ROS Statement are negative. Past Medical History Past Medical History: No Reported History Additional Past Medical History / Comment(s): pre-eclampsia, IBS History of Any Multi-Drug Resistant Organisms: None Reported Past Surgical History: Section, Cholecystectomy Past Psychological History: Anxiety, Bipolar, Depression, PTSD Smoking Status: Former smoker Past Alcohol Use History: None Reported Past Drug Use History: Marijuana - Past Family History Father Family Medical History: Hypertension General Exam General appearance: alert ENT exam: Present: mucous membranes moist Neck exam: Present: normal inspection Respiratory exam: Present: wheezes Cardiovascular Exam: Present: regular rate, normal rhythm GI/Abdominal exam: Present: soft Neurological exam: Present: alert, oriented X3 Course Vital Signs 01/15/23 11:37 Temperature 97.8 F Pulse Rate 88 Respiratory 24 Rate Blood Pressure 140/100 O2 Sat by Pulse 99 Oximetry Medical Decision Making - Medical Decision Making Was pt. sent in by a medical professional or institution (, [facility], SENIOR UX DEVELOPER, urgent care, hospital, or alf...) When possible be specific @ -No Did you speak to anyone other than the patient for history (EMS, parent, family, police, friend...)? What history was obtained from this source @ -No Did you review nursing and triage notes (agree or disagree)? Why? @ -I reviewed and agree with nursing and triage notes Were old charts reviewed (outside hosp., previous admission, EMS record, old EKG, old radiological studies, urgent care reports/EKG's, alf records)? Report findings @ -Today's visit reviewed. Further details please see HPI and medical decision making. Differential Diagnosis (chest pain, altered mental status, abdominal pain women, abdominal pain men, vaginal bleeding, weakness, fever, dyspnea, syncope, headache, dizziness, GI bleed, back pain, seizure, CVA, palpatations, mental health, musculoskeletal)? @ -Differential Dyspnea: Coronary syndrome, arrhythmia, tamponade, asthma, COPD, pulmonary embolism, pneumonia, pneumothorax, pulmonary effusion, anaphylaxis, diabetic ketoacidosis, flailed chest, pulmonary contusion, diaphragmatic rupture, anemia, neuromuscular, this is not meant to be an all-inclusive list. EKG interpreted by me (3pts min.). @ -None X-rays interpreted by me (1pt min.). @ -None CT interpreted by me (1pt min.). @ -None done U/S interpreted by me (1pt. min.). @ -None done What testing was considered but not performed or refused? (CT, X-rays, U/S, labs)? Why? @ -None What meds were considered but not given or refused? Why? @ -Offered a breathing treatment however at this time declined as patient adm its to anxiety and notes that she is afraid it might make her more anxious. Did you discuss the management of the patient with other professionals (professionals i.e. , PA, SENIOR UX DEVELOPER, lab, RT, psych nurse, hospital social worker, care management assistant, teacher, chief resource officer, case checker)? Give summary @ -No Was smoking cessation discussed for >3mins.? @ -No Was critical care preformed (if so, how long)? @ -No Were there social determinants of health that impacted care today? How? (Homeles sness, low income, unemployed, alcoholism, drug addiction, transportation, low edu. Level, literacy, decrease access to med. care, senior living, rehab)? @ -No Was there de-escalation of care discussed even if they declined (Discuss DNR or withdrawal of care, Hospice)? DNR status @ -No What co-morbidities impacted this encounter? (DM, HTN, Smoking, COPD, CAD, Cancer, CVA, ARF, Chemo, Hep., AIDS, mental health diagnosis, sleep apnea, morbid obesity)? @ -Obesity, asthma Was patient admitted / discharged? Hospital course, mention meds given and route, prescriptions, significant lab abnormalities, going to OR and other pertinent info. @ -Discharge 27-year-old female presenting to the ED with complaints of dyspnea. Patient was seen here yesterday. Laboratory studies reviewed. Showed elevated white blood count at 12.6, elevated neutrophils at 8.9, relation panel unremarkable, chemistry panel shows some transaminitis however also largely unremarkable. Serology panel positive for influenza A. At this time, vital signs stable and afebrile. Patient already started on empiric treatment for a walking pneumonia. Patient ready completed a Medrol Dosepak and was given steroids yesterday. Discharged home in stable condition and advised follow-up with her PCP. Dis cussed return precautions with patient who verbalizes agreement. Undiagnosed new problem with uncertain prognosis? @ -No Drug Therapy requiring intensive monitoring for toxicity (Heparin, Nitro, Insulin, Cardizem)? @ -No Were any procedures done? @ -No Diagnosis/symptom? @ -Dyspnea Acute, or Chronic, or Acute on Chronic? @ -Acute Uncomplicated (without systemic symptoms) or Complicated (systemic symptoms)? @ -Uncomplicated Side effects of treatment? @ -No Exacerbation, Progression, or Severe Exacerbation? @ -No Poses a threat to life or bodily function? How? (Chest pain, [place], [place], pneumonia, PE, COPD, DKA, ARF, appy, cholecystitis, CVA, Diverticulitis, Homicidal, Suicida l, threat to staff... and all critical care pts) @ -No Disposition Clinical Impression: Dyspnea Disposition: HOME SELF-CARE Condition: Good Additional Instructions: Please return to the Emergency Department if symptoms worsen or any other co ncerns. Follow up with your primary care provider. Is patient prescribed a controlled substance at d/c from ED?: No Referrals: Kerry Brown MD [Primary Care Provider] - 1-2 days Time of Disposition: 13:04
[2023-01-15] MEDS ORDERED: LORazepam 2 MG/ML INJ IM STA (13:05)
[2023-01-15 13:29] VITALS: BP 150/104; PULSE 58; RESP 16
== END 2023-01-15 13:26 | disposition home or self-care (01) ==
LOC: EC 11:36
DX: R06.00 Dyspnea, unspecified (principal); I10 Essential (primary) hypertension; J45.909 Unspecified asthma, uncomplicated; E66.9 Obesity, unspecified; F12.90 Cannabis use, unspecified, uncomplicated; Z87.891 Personal history of nicotine dependence; Z86.59 Personal history of other mental and behavioral disorders; Z68.41 Body mass index [BMI] 40.0-44.9, adult
CPT/HCPCS: 99285; 96372; J2060

== ENCOUNTER 2023-04-16 14:44 | Outpatient (CLI) | payer BC, OTHER ==
[2023-04-16 15:39] VITALS: BP 134/83; PULSE 89; RESP 16; TEMP 98.5
--- NOTE | 2023-04-16 15:50 | P.SLEEP ---
History of Present Illness DATE: 04/16/2023 CONSULTATION/NEW PATIENT EVALUATION HISTORY OF PRESENT ILLNESS/SLEEP-WAKE EVALUATION: 28-year-old lady had been ev aluated in the sleep center for possible obstructive sleep apnea hypopnea syndrome and significant excessive daytime sleepiness. SLEEP SCHEDULE: Usually sleep schedule from 1011 PM until 8 AM. FALLING ASLEEP: Usually no problems with falling asleep. DURING SLEEP: Patient snores and wakes up from sleep up to 4 times with 4 episodes of nocturia. Positive history of restless leg symptoms, no history of hypnogogical hallucinations or cataplexy. Patient has positive history of sleep off paralysis. DURING THE DAY/WAKE STATE: In the morning patient wake up tired, has difficulties to pay attention, falling asleep during the day. [place] sleepiness scale is an extremely high range of 19. Patient may have more than 2 naps during the day. PAST MEDICAL HISTORY: PTSD, depression, anxiety, panic disorder, hypertension. PAST SURGICAL HISTORY: Cholecystectomy . Past Medical History Past Medical History: No Reported History, Asthma, Hypertension Additional Past Medical History / Comment(s): pre-eclampsia, IBS, SNORING, PTSD, DEPRESSION, ANXIETY, PANIC DISORDER (PT STATES HER DR PUT HER ON HTN MED BUT SHE QUIT TAKING IT LAST FRIDAY OR SO DUE TO HOW IT MADE IT FEEL - ONLY TOOK IT FOR A FEW DAYS/ RECENTLY RX IT.) History of Any Multi-Drug Resistant Organisms: None Reported Past Surgical History: Section, Cholecystectomy Past Psychological History: Anxiety, Bipolar, Depression, Panic Disorder, PTSD Smoking Status: Current every day smoker, Former smoker Past Alcohol Use History: None Reported Additional Past Alcohol Use History / Comment(s): PATIENT STATES CURRENT SMOKER, (10 YEARS X 4 CIGARETTES A DAY.) Past Drug Use History: None Reported, Marijuana - Past Family History Father Family Medical History: Hypertension Additional Family Medical History / Comment(s): INSOMNIA Medications and Allergies Home Medications Medication Instructions Recorded Confirmed Type Amoxicillin 500 mg PO BID 08/15/22 08/15/22 History Ondansetron Odt [Zofran ODT] 4 mg PO Q8H PRN 08/15/22 08/15/22 History Azithromycin [Zithromax] 500 mg PO DAILY #5 tab 01/14/23 Rx Benzonatate [Tessalon Perles] 100 mg PO TID PRN #20 capsule 01/14/23 Rx Allergies Allergy/AdvReac Type Severity Reaction Status Date / Time No Known Allergies Allergy Verified 01/15/23 11:44 Physical Exam Vitals: Vital Signs Temp Pulse Resp BP Pulse Ox 04/16/23 15:13 98.5 F 89 16 134/83 96 Intake and Output 04/16/23 04/16/23 04/16/23 06:59 14:59 22:59 Other: Weight 119.76 kg Sleep Note - Sleep Data ESS Total: 19 - Sleep Note Sleep Note: Temperature: 98.5 F Pulse Rate: 89 Respiratory Rate: 16 Blood Pressure: 134/83 SpO2: 96 Height: 5 ft 5.25 in Weight: 119.76 kg BMI: Neck Circumference: 19 REVIEW OF SYSTEMS: Multiple awakenings from sleep, significant excessive daytime sleepiness. No fevers. No double vision. No recent chest pain. No shortness of breath. No abdominal pain. No bleeding episodes. No blood in urine. No seizure episodes. PHYSICAL EXAMINATION: GENERAL: A pleasant patient without any distress. body mass index 43.6. HEENT: PERRLA, EOMI. Evaluation of oropharynx showed tongue protrudes midline, position of soft palate Mallampati 2, extremity short distance between soft palate and posterior finding of wall. NECK: Supple. No JVD. Thyroid is not palpable. 16-1/4 inches in circumference. LUNGS: Clear to percussion and to auscultation. Good air exchange. No wheezing or rhonchi. HEART: S1, S2 regular. No murmurs, gallops or rubs. ABDOMEN: Soft and nontender. Bowel sounds are present. No organomegaly appreciated. EXTREMITIES: No clubbing or cyanosis. 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 Cranial nerves 2 to 7 intact. There is no fasciculation or atrophy noted. No focal deficits observed. ASSESSMENT: 1. Snoring, multiple awakenings from sleep, wide neck 16-1/4 inches, short distance between soft palate and pharyngeal wall. Possible obstructive sleep apnea hypopnea syndrome 2. Extremely significant sleepiness with [place] Sleepiness Scale of 19 for many years, episodes of sleep paralysis. Differential diagnosis include narcolepsy type II. 3. History of depression. 4. History of anxiety. 5 restless leg symptoms. 6 . History of PTSD. 7. History of panic attacks. 8. History of asthma. 9 . Obesity BMI 43.6. PLAN: 1. Polysomnography for evaluation of patient's breathing during sleep. Multiple sleep latency testing sleep study will be negative for obstructive sleep apnea hypopnea syndrome. 2. Following plan after reading sleep study. 3. Preferable position during sleep on the side. 4. No driving if patient feels any sleepiness. Patient is aware of civil and criminal liability for unsafe driving. 5. Sleep hygiene with regular sleep time for at least 7.5-8 hours. 6. Watching and losing weight. Thank you very much for referring this patient for consultation. Sincerely, Delfino Simmons MD, PhD, FAASM. Diplomat of [place] [employer], Sleep Medicine Board by [place] [employer] [place] [employer] Heel Finisher of [facility] [place] Past Medical History Past Medical History: No Reported History, Asthma, Hypertension Additional Past Medical History / Comment(s): pre-eclampsia, IBS, SNORING, PTSD, DEPRESSION, ANXIETY, PANIC DISORDER (PT STATES HER DR PUT HER ON HTN MED BUT SHE QUIT TAKING IT LAST FRIDAY OR SO DUE TO HOW IT MADE IT FEEL - ONLY TOOK IT FOR A FEW DAYS/ RECENTLY RX IT.) History of Any Multi-Drug Resistant Organisms: None Reported Past Surgical History: Section, Cholecystectomy Past Psychological History: Anxiety, Bipolar, Depression, Panic Disorder, PTSD Smoking Status: Current every day smoker, Former smoker Past Alcohol Use History: None Reported Additional Past Alcohol Use History / Comment(s): PATIENT STATES CURRENT SMOKER, (10 YEARS X 4 CIGARETTES A DAY.) Past Drug Use History: None Reported, Marijuana - Past Family History Father Family Medical History: Hypertension Additional Family Medical History / Comment(s): INSOMNIA Medications and Allergies Home Medications Medication Instructions Recorded Confirmed Type Amoxicillin 500 mg PO BID 08/15/22 08/15/22 History Ondansetron Odt [Zofran ODT] 4 mg PO Q8H PRN 08/15/22 08/15/22 History Azithromycin [Zithromax] 500 mg PO DAILY #5 tab 01/14/23 Rx Benzonatate [Tessalon Perles] 100 mg PO TID PRN #20 capsule 01/14/23 Rx Allergies Allergy/AdvReac Type Severity Reaction Status Date / Time No Known Allergies Allergy Verified 01/15/23 11:44 Physical Exam Vitals: Vital Signs Temp Pulse Resp BP Pulse Ox 03/06/24 15:13 98.5 F 89 16 134/83 96 Intake and Output 04/16/23 04/16/23 04/16/23 06:59 14:59 22:59 Other: Weight 119.76 kg Sleep Note - Sleep Data ESS Total: 19 - Sleep Note Sleep Note: Temperature: 98.5 F Pulse Rate: 89 Respiratory Rate: 16 Blood Pressure: 134/83 SpO2: 96 Height: 5 ft 5.25 in Weight: 119.76 kg BMI: Neck Circumference: 19
== END 2023-05-20 05:55 | disposition home or self-care (01) ==
LOC: 3 N SLEEP 14:44
PROVIDERS: ATTEND Internal Medicine
DX: R06.83 Snoring (principal); G47.10 Hypersomnia, unspecified; G25.81 Restless legs syndrome; E66.9 Obesity, unspecified; Z86.59 Personal history of other mental and behavioral disorders; Z87.09 Personal history of other diseases of the respiratory system; Z68.41 Body mass index [BMI] 40.0-44.9, adult; Z87.891 Personal history of nicotine dependence
CPT/HCPCS: 99211

== ENCOUNTER 2023-04-24 18:01 | Emergency (ER) | payer BC, OTHER ==
[2023-04-24 18:32] VITALS: BP 140/79; PULSE 109; RESP 18; TEMP 99.4
--- NOTE | 2023-04-24 18:34 | ED ---
General Adult HPI - General Source: patient, RN notes reviewed Mode of arrival: EMS Limitations: no limitations <Sylvia Faulkner - Last Filed: 04/27/23 07:39> <John Haddad - Last Filed: 04/29/23 15:23> - General Chief complaint: Anxiety Stated complaint: Anxiety Time Seen by Provider: 04/24/23 18:32 - History of Present Illness Initial comments: Quick note: Patient is a 28-year-old female presented to the ER with chief complaint of syncope. Patient also is reporting chest pain. She states she recently found out some troubling news about the father of her child. She states she started having anxiety attack and passed out. Patient states that she was sitting when this happened. (Sylvia Faulkner) - Related Data Home Medications Medication Instructions Recorded Confirmed Amoxicillin 500 mg PO BID 08/15/22 08/15/22 Ondansetron Odt [Zofran ODT] 4 mg PO Q8H PRN 08/15/22 08/15/22 Previous Rx's Medication Instructions Recorded Azithromycin [Zithromax] 500 mg PO DAILY #5 tab 01/14/23 Benzonatate [Tessalon Perles] 100 mg PO TID PRN #20 capsule 01/14/23 Allergies Allergy/AdvReac Type Severity Reaction Status Date / Time No Known Allergies Allergy Verified 04/24/23 18:30 Review of Systems ROS Other: All systems not noted in ROS Statement are negative. <Sylvia Faulkner - Last Filed: 04/27/23 07:39> ROS Other: All systems not noted in ROS Statement are negative. <John Haddad - Last Filed: 04/29/23 15:23> ROS Statement: Those systems with pertinent positive or pertinent negative responses have been documented in the HPI. Past Medical History Past Medical History: No Reported History Additional Past Medical History / Comment(s): pre-eclampsia, IBS History of Any Multi-Drug Resistant Organisms: None Reported Past Surgical History: Section, Cholecystectomy Past Psychological History: Anxiety, Bipolar, Depression, PTSD Smoking Status: Former smoker Past Drug Use History: Marijuana - Past Family History Father Family Medical History: Hypertension Additional Family Medical History / Comment(s): INSOMNIA <Sylvia Faulkner - Last Filed: 04/27/23 07:39> General Exam Limitations: no limitations <Sylvia Faulkner - Last Filed: 04/27/23 07:39> - General Exam Comments Initial Comments: Visual Physical Exam Vital signs reviewed General: Visibly upset and hyperventilating. Head: Normocephalic, atraumatic Eyes: PERRLA, EOMI ENT: Airway patent Chest: Nonlabored breathing Skin: No visual rash, normal skin tone Neuro: Alert and oriented 3 Musculoskeletal: No gross abnormalities (Sylvia Faulkner) Course Vital Signs 04/24/23 18:24 Temperature 99.4 F Pulse Rate 109 H Respiratory 18 Rate Blood Pressure 140/79 O2 Sat by Pulse 97 Oximetry Medical Decision Making <Sylvia Faulkner - Last Filed: 04/27/23 07:39> - Medical Decision Making I performed the quick note portion of this chart. Electronically signed by Sylvia Faulkner PA-C Patient eloped prior to completion of medical treatment. (Sylvia Faulkner) Disposition Time of Disposition: 07:38 <Sylvia Faulkner - Last Filed: 04/27/23 07:39> <John Haddad - Last Filed: 04/29/23 15:23> Clinical Impression: Left against medical advice Disposition: LEFT AGAINST MEDICAL ADVICE Condition: Undetermined Instructions (If sedation given, give patient instructions): Generalized Anxiety Disorder (ED) Referrals: Efren Pitt PAC [REFERRING] - 1-2 days
== END 2023-04-24 20:13 | disposition left against medical advice (07) ==
LOC: EC 18:01
DX: Z53.29 Procedure and treatment not carried out because of patient's decision for other reasons (principal); F31.9 Bipolar disorder, unspecified; F12.90 Cannabis use, unspecified, uncomplicated; Z87.891 Personal history of nicotine dependence
CPT/HCPCS: 93005; 99284

== ENCOUNTER 2023-05-19 19:42 | Outpatient (CLI) | payer BC, OTHER ==
--- NOTE | 2023-05-21 11:41 | P.PCN ---
Description of Procedure: POLYSOMNOGRAPHY REPORT PROCEDURE(S)/DATE(S): Polysomnography 05/19/2023 CLINICAL: Patient has been seen in the sleep center for evaluation of obstructive sleep apnea-hypopnea syndrome. Please see my consultation. Sleep study has been done for evaluation of patient breathing during the sleep. PROCEDURE: The standard montage for clinical polysomnography included the electroencephalogram, the electrooculogram, the mentalis surface electromyography and Lead II cardiography. The respiratory battery consisted of measurements of nasal/buccal air flow, pressure transducer measurements from nose, thoracic and/or abdominal effort and intercostal surface electromyography. Video monitoring has been done to check for any parasomnia events. Nocturnal oxyhemoglobin saturations were obtained by finger oximetry. Step-addison titration with positive airway pressure was utilized to control the respiratory events, if necessary. RESULTS: During the diagnostic sleep study sleep efficiency was normal at 93.1%. Latency to sleep onset was normal at 13.0 min. Sleep architecture showed stage NI was normal 6.1%, Delta sleep was normal 6.6%, REM sleep was short 10.0%. Respiratory channel showed 2 obstructive apneas, 0 mixed apneas, 0 central apneas, 43 hypopneas with lowest oxygen level 90%. Total apnea hypopnea index was 6.8. Heart rate was in the range between 62 and 81, average 70. EMG showed 7.1 periodic limb movements per hour with 4.6 micro-arousals per hour. IMPRESSIONS: 1. Mild obstructive sleep apnea hypopnea syndrome. 2. No significant periodic limb movements have been documented. 3. Patient presented with symptoms of significant excessive daytime sleepiness with [place] Sleepiness Scale 19. Please see other impressions from consultation PLAN: 1. The patient will be started on AutoPap treatment for correction of respiratory abnormalities during the sleep. 2. Losing weight program. 3. Sleep hygiene with regular time in bed for at least 7-1/2 hours. 4. No driving if feeling sleepiness. 5. I will see patient for follow-up visit to evaluate clinical response on treatment with CPAP, compliance with treatment, make any necessary adjustments with mask fitting pressure and humidification. If patient will continue significant sleepiness on treatment with CPAP we will consider multiple sleep latency test for differential diagnosis with narcolepsy. Thank you very much for allowing me to participate in the management of your patient. Sincerely, Delfion Simmons MD, PhD, FAASM. Diplomat of [place] [employer], Sleep Medicine Board by [place] [employer] Desk Editor of [facility] [place]
== END 2023-05-20 05:55 | disposition home or self-care (01) ==
LOC: 3 N SLEEP 19:42
PROVIDERS: ATTEND Internal Medicine
DX: G47.33 Obstructive sleep apnea (adult) (pediatric) (principal); G47.61 Periodic limb movement disorder; G47.8 Other sleep disorders; F17.200 Nicotine dependence, unspecified, uncomplicated
CPT/HCPCS: 95810

== ENCOUNTER 2023-05-22 13:16 | Emergency (ER) | payer BC, OTHER ==
--- NOTE | 2023-05-22 13:30 | ED ---
General Adult HPI - General Chief complaint: Psychiatric Symptoms Stated complaint: Mental health eval Time Seen by Provider: 05/22/23 13:20 Source: patient Mode of arrival: ambulatory Limitations: no limitations - History of Present Illness Initial comments: 28-year-old female with past medical history of PTSD, anxiety who presents emergency department reporting suicidal ideations. States that she has had anxiety which has led to panic and suicidal thoughts. Over the past couple of days she has thought of several ways in which to hurt herself. She does have history of previous suicide attempts. She took 4, 0.5 mg Xanax tablets to de crease her anxiety before coming in. She denies that she did this to hurt herself. She denies concern for . No drug or alcohol use. No other alleviating, precipitating or modifying factors - Related Data Home Medications Medication Instructions Recorded Confirmed ALPRAZolam [Xanax] 0.5 mg PO TID PRN 05/22/23 05/22/23 Albuterol Sulfate [Albuterol 2 puff PO RT-Q6H PRN 05/22/23 05/22/23 Sulfate Hfa] Cetirizine HCl [Zyrtec] 10 mg PO DAILY 05/22/23 05/22/23 dexAMETHasone [Decadron] 1 mg PO BID 05/22/23 05/22/23 lisinopriL [Zestril] 10 mg PO DAILY 05/22/23 05/22/23 Allergies Allergy/AdvReac Type Severity Reaction Status Date / Time No Known Allergies Allergy Verified 05/22/23 15:13 Review of Systems ROS Statement: Those systems with pertinent positive or pertinent negative responses have been documented in the HPI. ROS Other: All systems not noted in ROS Statement are negative. Past Medical History Past Medical History: No Reported History Additional Past Medical History / Comment(s): pre-eclampsia, IBS History of Any Multi-Drug Resistant Organisms: None Reported Past Surgical History: Section, Cholecystectomy Past Psychological History: Anxiety, Bipolar, Depression, PTSD Smoking Status: Former smoker Past Drug Use History: Marijuana - Past Family History Father Family Medical History: Hypertension Additional Family Medical History / Comment(s): INSOMNIA General Exam Limitations: no limitations General appearance: alert, anxious Head exam: Present: atraumatic, normocephalic, normal inspection Eye exam: Present: normal appearance, PERRL, EOMI. Absent: scleral icterus, conjunctival injection, periorbital swelling ENT exam: Present: normal exam, mucous membranes moist Neck exam: Present: normal inspection. Absent: tenderness, meningismus, lymphadenopathy Respiratory exam: Present: normal lung sounds bilaterally. Absent: respiratory distress, wheezes, rales, rhonchi, stridor Cardiovascular Exam: Present: regular rate, normal rhythm, normal heart sounds. Absent: systolic murmur, diastolic murmur, rubs, gallop, clicks GI/Abdominal exam: Present: soft, normal bowel sounds. Absent: distended, tenderness, guarding, rebound, rigid Extremities exam: Present: normal inspection, full ROM, normal capillary refill. Absent: tenderness, pedal edema, joint swelling, calf tenderness Back exam: Present: normal inspection Neurological exam: Present: alert, oriented X3, CN II-XII intact Psychiatric exam: Present: depressed, suicidal ideation Skin exam: Present: warm, dry, intact, normal color. Absent: rash Course Vital Signs 05/22/23 05/22/23 13:17 21:43 Temperature 98.3 F 98.8 F Pulse Rate 98 106 H Respiratory 18 16 Rate Blood Pressure 158/114 157/78 O2 Sat by Pulse 99 98 Oximetry - Reevaluation(s) Reevaluation #1: Has been medically cleared 05/22/23 14:30 Medical Decision Making - Medical Decision Making Was pt. sent in by a medical professional or institution ([facility]NA[facility] [place], DIESEL ENGINE FITTER, urgent care, hospital, or [facility]...) When possible be specific @ -No Did you speak to anyone other than the patient for history (EMS, parent, family, police, friend...)? What history was obtained from this source @ -No Did you review nursing and triage notes (agree or disagree)? Why? @ -I reviewed and agree with nursing and triage notes Were old charts reviewed (outside hosp., previous admission, EMS record, old EKG, old radiological studies, urgent care reports/EKG's, [facility] records)? Report findings @ -No old charts were reviewed Differential Diagnosis (chest pain, altered mental status, abdominal pain women, abdominal pain men, vaginal bleeding, weakness, fever, dyspnea, syncope, headache, dizziness, GI bleed, back pain, seizure, CVA, palpatations, mental health, musculoskeletal)? @ -Differential Mental Health Depression, anxiety, bipolar, psychosis, schizophrenia, borderline personality, situational depression, adjustment disorder, behavioral disorder, brain tumor, malingering, substance abuse, encephalopathy, medication reaction, dementia, hypothyroidism, degenerative neurologic disorder, lupus.... This is not meant to be all-inclusive list EKG interpreted by me (3pts min.). @ -Not done X-rays interpreted by me (1pt min.). @ -None done CT interpreted by me (1pt min.). @ -None done U/S interpreted by me (1pt. min.). @ -None done What testing was considered but not performed or refused? (CT, X-rays, U/S, labs)? Why? @ -None What meds were considered but not given or refused? Why? @ -None Did you discuss the management of the patient with other professionals (professionals i.e. , PA, DIESEL ENGINE FITTER, lab, RT, psych nurse, psychosocial rehabilitation counselor, wan support specialist, teacher, control officer, registered nurse hh case manager)? Give summary @ -Poke with the EPS nurse who does evaluate the patient and feels that she requires inpatient admission. Was smoking cessation discussed for >3mins.? @ -No Was critical care preformed (if so, how long)? @ -No Were there social determinants of health that impacted care today? How? (Homelessness, low income, unemployed, alcoholism, drug addiction, transpo rtation, low edu. Level, literacy, decrease access to med. care, longterm, rehab)? @ -No Was there de-escalation of care discussed even if they declined (Discuss DNR or withdrawal of care, Hospice)? DNR status @ -No What co-morbidities impacted this encounter? (DM, HTN, Smoking, COPD, CAD, Cancer, CVA, ARF, Chemo, Hep., AIDS, mental health diagnosis, sleep apnea, morbid obesity)? @ -Depression, PTSD Was patient admitted / discharged? Hospital course, mention meds given and route, prescriptions, significant lab abnormalities, going to OR and other pertinent info. @ -Upon arrival patient is placed into room 19. Thorough history and physical exam was performed. Patient reports to depression with suicidal ideations to me. She is not intoxicated and therefore cleared for mental health evaluation. Patient is evaluated by EPS. Discussion with the psychiatrist does recommend inpatient placement. Family is at bedside and feels that this is the safest measure for the patient. Patient is pending transfer at this time. Laboratory studies are completed. I did fill out the a certification on the patient. Pending a bed in stable condition Undiagnosed new problem with uncertain prognosis? @ -No Drug Therapy requiring intensive monitoring for toxicity (Heparin, Nitro, Insulin, Cardizem)? @ -No Were any procedures done? @ -No Diagnosis/symptom? @ -Acute depression, suicidal ideations Acute, or Chronic, or Acute on Chronic? @ -Acute Uncomplicated (without systemic symptoms) or Complicated (systemic symptoms)? @ -Complicated Side effects of treatment? @ -No Exacerbation, Progression, or Severe Exacerbation? @ -No Poses a threat to life or bodily function? How? (Chest pain, USA, [place], pneumonia, PE, COPD, DKA, ARF, appy, cholecystitis, CVA, Diverticulitis, Homicidal, Suicida l, threat to staff... and all critical care pts) @ -No - Lab Data Result diagrams: 05/22/23 17:33 05/22/23 17:33 Lab Results 05/22/23 05/22/23 05/22/23 Range/Units 17:33 17:33 17:33 WBC 12.1 H (3.8-10.6) k/uL RBC 4.69 (3.80-5.40) m/uL Hgb 13.8 (11.4-16.0) gm/dL Hct 43.0 (34.0-46.0) % MCV 91.5 (80.0-100.0) fL MCH 29.4 (25.0-35.0) pg MCHC 32.1 (31.0-37.0) g/dL RDW 13.8 (11.5-15.5) % Plt Count 283 (150-450) k/uL MPV 8.0 Neutrophils % 54 % Lymphocytes % 39 % Monocytes % 5 % Eosinophils % 1 % Basophils % 0 % Neutrophils # 6.5 (1.3-7.7) k/uL Lymphocytes # 4.7 (1.0-4.8) k/uL Monocytes # 0.6 (0-1.0) k/uL Eosinophils # 0.1 (0-0.7) k/uL Basophils # 0.1 (0-0.2) k/uL Sodium (137-145) mmol/L Potassium (3.5-5.1) mmol/L Chloride (98-107) mmol/L Carbon Dioxide (22-30) mmol/L Anion Gap mmol/L BUN (7-17) mg/dL Creatinine (0.52-1.04) mg/dL Est GFR (CKD-EPI)AfAm (>60 ml/min/1.73 sqM) Est GFR (CKD-EPI)NonAf (>60 ml/min/1.73 sqM) Glucose (74-99) mg/dL Calcium (8.4-10.2) mg/dL Total Bilirubin (0.2-1.3) mg/dL AST (14-36) U/L ALT (4-34) U/L Alkaline Phosphatase (38-126) U/L Total Protein (6.3-8.2) g/dL Albumin (3.5-5.0) g/dL Urine Color Colorless Urine Appearance Clear (Clear) Urine pH 5.5 (5.0-8.0) Ur Specific [place] 1.020 (1.001-1.035) Urine Protein Negative (Negative) Urine Glucose (UA) Negative (Negative) Urine Ketones Negative (Negative) Urine Blood Negative (Negative) Urine Nitrite Negative (Negative) Urine Bilirubin Negative (Negative) Urine Urobilinogen <2.0 (<2.0) mg/dL Ur Leukocyte Esterase Negative (Negative) Urine HCG, Qual Not Detected (Not Detectd) Urine Opiates Screen Not Detected (NotDetected) Ur Oxycodone Screen Not Detected (NotDetected) Urine Methadone Screen Not Detected (NotDetected) Ur Barbiturates Screen Not Detected (NotDetected) U Tricyclic Antidepress Not Detected (NotDetected) Ur Phencyclidine Scrn Not Detected (NotDetected) Ur Amphetamines Screen Not Detected (NotDetected) U Methamphetamines Scrn Not Detected (NotDetected) U Benzodiazepines Scrn Detected H (NotDetected) Urine Cocaine Screen Not Detected (NotDetected) U Marijuana (THC) Screen Detected H (NotDetected) SARS-CoV-2 (PCR) (Not Detectd) 05/22/23 05/22/23 Range/Units 17:33 17:33 WBC (3.8-10.6) k/uL RBC (3.80-5.40) m/uL Hgb (11.4-16.0) gm/dL Hct (34.0-46.0) % MCV (80.0-100.0) fL MCH (25.0-35.0) pg MCHC (31.0-37.0) g/dL RDW (11.5-15.5) % Plt Count (150-450) k/uL MPV Neutrophils % % Lymphocytes % % Monocytes % % Eosinophils % % Basophils % % Neutrophils # (1.3-7.7) k/uL Lymphocytes # (1.0-4.8) k/uL Monocytes # (0-1.0) k/uL Eosinophils # (0-0.7) k/uL Basophils # (0-0.2) k/uL Sodium 137 (137-145) mmol/L Potassium 4.1 (3.5-5.1) mmol/L Chloride 109 H (98-107) mmol/L Carbon Dioxide 20 L (22-30) mmol/L Anion Gap 8 mmol/L BUN 15 (7-17) mg/dL Creatinine 0.69 (0.52-1.04) mg/dL Est GFR (CKD-EPI)AfAm >90 (>60 ml/min/1.73 sqM) Est GFR (CKD-EPI)NonAf >90 (>60 ml/min/1.73 sqM) Glucose 98 (74-99) mg/dL Calcium 9.1 (8.4-10.2) mg/dL Total Bilirubin 0.4 (0.2-1.3) mg/dL AST 20 (14-36) U/L ALT 24 (4-34) U/L Alkaline Phosphatase 79 (38-126) U/L Total Protein 7.1 (6.3-8.2) g/dL Albumin 4.1 (3.5-5.0) g/dL Urine Color Urine Appearance (Clear) Urine pH (5.0-8.0) Ur Specific [place] (1.001-1.035) Urine Protein (Negative) Urine Glucose (UA) (Negative) Urine Ketones (Negative) Urine Blood (Negative) Urine Nitrite (Negative) Urine Bilirubin (Negative) Urine Urobilinogen (<2.0) mg/dL Ur Leukocyte Esterase (Negative) Urine HCG, Qual (Not Detectd) Urine Opiates Screen (NotDetected) Ur Oxycodone Screen (NotDetected) Urine Methadone Screen (NotDetected) Ur Barbiturates Screen (NotDetected) U Tricyclic Antidepress (NotDetected) Ur Phencyclidine Scrn (NotDetected) Ur Amphetamines Screen (NotDetected) U Methamphetamines Scrn (NotDetected) U Benzodiazepines Scrn (NotDetected) Urine Cocaine Screen (NotDetected) U Marijuana (THC) Screen (NotDetected) SARS-CoV-2 (PCR) Not Detected (Not Detectd) Disposition Clinical Impression: PTSD (post-traumatic stress disorder), Major depressive disorder without psychotic features Disposition: TRANSFER TO PSYCH HOSP/UNIT Condition: Serious Is patient prescribed a controlled substance at d/c from ED?: No Referrals: Eric Restrepo MD [Primary Care Provider] - 1-2 days
[2023-05-22] MEDS ORDERED: ALBUTEROL HFA INHALER INHALATION PRN (17:24)
[2023-05-22 18:16] LABS: Basophils # (A) 0.1 k/uL (0-0.2); Basophils % (A) 0 %; Eosinophils # (A) 0.1 k/uL (0-0.7); Eosinophils % (A) 1 %; HGB 13.8 gm/dL (11.4-16.0); Lymphocytes # (A) 4.7 k/uL (1.0-4.8); Lymphocytes % (A) 39 %; MCH 29.4 pg (25.0-35.0); MCHC 32.1 g/dL (31.0-37.0); MCV 91.5 fL (80.0-100.0); Monocytes # (A) 0.6 k/uL (0-1.0); Monocytes % (A) 5 %; Neutrophils # (A) 6.5 k/uL (1.3-7.7); Neutrophils % (A) 54 %; Platelet Count 283 k/uL (150-450); RBC 4.69 m/uL (3.80-5.40); RDW 13.8 % (11.5-15.5); WBC 12.1 k/uL (3.8-10.6)
[2023-05-22 18:25] LABS: ALT 24 U/L (4-34); AST 20 U/L (14-36); African American GFR (CKD) >90 (>60 ml/min/1.73 sqM); Albumin 4.1 g/dL (3.5-5.0); Alkaline Phosphatase 79 U/L (38-126); Anion Gap 8 mmol/L; Blood Urea Nitrogen 15 mg/dL (7-17); Calcium 9.1 mg/dL (8.4-10.2); Carbon Dioxide 20 mmol/L (22-30); Chloride 109 mmol/L (98-107); Glucose 98 mg/dL (74-99); Non-African American GFR(CKD) >90 (>60 ml/min/1.73 sqM); Potassium 4.1 mmol/L (3.5-5.1); Sodium 137 mmol/L (137-145); Total Bilirubin 0.4 mg/dL (0.2-1.3); Total Protein 7.1 g/dL (6.3-8.2)
[2023-05-22 18:28] LABS: Appearance,Urine Clear (Clear); Bilirubin,Urine Negative (Negative); Blood,Urine Negative (Negative); Color,Urine Colorless; Glucose,Urine (UA) Negative (Negative); Ketones,Urine Negative (Negative); Leukocyte Esterase,Urine Negative (Negative); Nitrite,Urine Negative (Negative); PH, Urine 5.5 (5.0-8.0); Protein,Urine Negative (Negative); Urobilinogen,Urine <2.0 mg/dL (<2.0)
[2023-05-22 18:41] LABS: Amphetamine Screen,Urine Not Detected (NotDetected); Barbiturate Screen,Urine Not Detected (NotDetected); Benzodiazepines Screen,Urine Detected (NotDetected); Cocaine Screen,Urine Not Detected (NotDetected); Methadone Screen, Urine Not Detected (NotDetected); Opiate Screen,Urine Not Detected (NotDetected); Oxycodone Screen, Urine Not Detected (NotDetected); Phencyclidine Screen,Urine Not Detected (NotDetected); Tricyclic Antidepressant,Urine Not Detected (NotDetected); Urn Cannabinoid Scrn Detected (NotDetected)
[2023-05-22] MEDS: NICOTINE 21MG/24HR PATCH TRANSDERM STA (18:47)
[2023-05-22] MEDS: ALPRAZolam 0.5 MG TAB PO PRN (19:44)
[2023-05-22 21:51] VITALS: BP 157/78; PULSE 106; RESP 16; TEMP 98.8
[2023-05-23] MEDS ORDERED: lisinopriL 10 MG TAB PO SCH (09:00)
[2023-05-23] MEDS ORDERED: LORATADINE 10 MG TAB PO SCH (09:00)
== END 2023-05-23 01:08 ==
LOC: EC 13:16
DX: F43.10 Post-traumatic stress disorder, unspecified (principal); F32.9 Major depressive disorder, single episode, unspecified; F12.90 Cannabis use, unspecified, uncomplicated; Z87.891 Personal history of nicotine dependence; Z11.52 Encounter for screening for COVID-19
CPT/HCPCS: 99285; 82075; 36415; 80053; 85025; 81003; 81025; 80306; 87635; S4990; J8540

== ENCOUNTER 2023-10-29 10:13 | Emergency (ER) | payer BC, OTHER ==
[2023-10-29 10:18] VITALS: RESP 18
--- NOTE | 2023-10-29 11:18 | ED ---
Recheck HPI - General Chief Complaint: Recheck/Abnormal Lab/Rx Stated Complaint: Meño breast pain Time Seen by Provider: 10/29/23 10:35 Source: patient, RN notes reviewed Mode of arrival: ambulatory Limitations: no limitations - History of Present Illness Initial Comments: A 28-year-old female with a history of hypertension not on medication presents emergency department accompanied by friend with chief complaint of bilateral breast pain. Patient states that over the past few nights she has been experiencing bilateral breast pain, breast color changes and discomfort. Patient has been evaluated with her primary care provider outpatient and has received blood work a few weeks ago and is scheduled for a mammogram to completed next week. Patient states that pain has worsened over the past week and had severe pain while laying on her side plank. She denies unintended weight loss, nipple discharge, breast abscess. Patient states she does have a family history of breast cancer and both maternal and paternal's family. She has - Related Data Home Medications Medication Instructions Recorded Confirmed ALPRAZolam [Xanax] 0.5 mg PO TID PRN 05/22/23 05/22/23 Albuterol Sulfate [Albuterol 2 puff PO RT-Q6H PRN 05/22/23 05/22/23 Sulfate Hfa] Cetirizine HCl [Zyrtec] 10 mg PO DAILY 05/22/23 05/22/23 dexAMETHasone [Decadron] 1 mg PO BID 05/22/23 05/22/23 lisinopriL [Zestril] 10 mg PO DAILY 05/22/23 05/22/23 Allergies Allergy/AdvReac Type Severity Reaction Status Date / Time No Known Allergies Allergy Verified 10/29/23 10:18 Review of Systems ROS Statement: Those systems with pertinent positive or pertinent negative responses have been documented in the HPI. ROS Other: All systems not noted in ROS Statement are negative. Past Medical History Past Medical History: No Reported History Additional Past Medical History / Comment(s): pre-eclampsia, IBS History of Any Multi-Drug Resistant Organisms: None Reported Past Surgical History: Section, Cholecystectomy Past Psychological History: Anxiety, Bipolar, Depression, PTSD Smoking Status: Current every day smoker Past Alcohol Use History: None Reported Past Drug Use History: Marijuana - Past Family History Father Family Medical History: Hypertension Additional Family Medical History / Comment(s): INSOMNIA General Exam Limitations: no limitations Head exam: Present: atraumatic, normocephalic, normal inspection Eye exam: Present: normal appearance, PERRL, EOMI. Absent: scleral icterus, conjunctival injection, periorbital swelling ENT exam: Present: normal exam, mucous membranes moist Respiratory exam: Present: normal lung sounds bilaterally. Absent: respiratory distress, wheezes, rales, rhonchi, stridor Cardiovascular Exam: Present: regular rate, normal rhythm, normal heart sounds. Absent: systolic murmur, diastolic murmur, rubs, gallop, clicks GI/Abdominal exam: Present: soft, normal bowel sounds. Absent: distended, tenderness, guarding, rebound, rigid Extremities exam: Present: normal inspection, full ROM, normal capillary refill. Absent: tenderness, pedal edema, joint swelling, calf tenderness Back exam: Present: normal inspection Neurological exam: Present: alert, oriented X3, CN II-XII intact Skin exam: Present: other (bilateral breast mild erythema, fibrous breast tissue, no signs of abscess or draiange) Course Vital Signs 10/29/23 10/29/23 10/29/23 10:15 13:34 14:42 Temperature 98.2 F 98.6 F 98.4 F Pulse Rate 91 98 66 Respiratory 18 18 Rate Blood Pressure 146/105 158/100 153/100 O2 Sat by Pulse 99 98 96 Oximetry Medical Decision Making - Medical Decision Making Was pt. sent in by a medical professional or institution (, PA, MANAGER OFFICE, urgent care, hospital, or senior living...) When possible be specific @ -No Did you speak to anyone other than the patient for history (EMS, parent, family, police, friend...)? What history was obtained from this source @ -No Did you review nursing and triage notes (agree or disagree)? Why? @ -I reviewed and agree with nursing and triage notes Were old charts reviewed (outside hosp., previous admission, EMS record, old EKG, old radiological studies, urgent care reports/EKG's, senior living records)? Report findings @ -No old charts were reviewed Differential Diagnosis (chest pain, altered mental status, abdominal pain women, abdominal pain men, vaginal bleeding, weakness, fever, dyspnea, syncope, headache, dizziness, GI bleed, back pain, seizure, CVA, palpatations, mental health, musculoskeletal)? @ -Mastitis, breast abscess, fibrocystic breast changes, this list not all inclusive EKG interpreted by me (3pts min.). @ -none X-rays interpreted by me (1pt min.). @ -None done CT interpreted by me (1pt min.). @ -CT of the chest reveals minimal strandy atelectasis, there is relatively fatty breast density and no thoracic lymphadenopathy by CT size criteria with particular attention to the axilla U/S interpreted by me (1pt. min.). @ -None done What testing was considered but not performed or refused? (CT, X-rays, U/S, labs)? Why? @ -None What meds were considered but not given or refused? Why? @ -None Did you discuss the management of the patient with other professionals (professionals i.e. , PA, MANAGER OFFICE, lab, RT, psych nurse, social welfare clerk, supervisor grounds, teacher, surveillance officer, family service caseworker)? Give summary @ -No Was smoking cessation discussed for >3mins.? @ -No Was critical care preformed (if so, how long)? @ -No Were there social determinants of health that impacted care today? How? (Homelessness, low income, unemployed, alcoholism, drug addiction, transportation, low edu. Level, literacy, decrease access to med. care, halfway, rehab)? @ -No Was there de-escalation of care discussed even if they declined (Discuss DNR or withdrawal of care, Hospice)? DNR status @ -No What co-morbidities impacted this encounter? (DM, HTN, Smoking, COPD, CAD, Cancer, CVA, ARF, Chemo, Hep., AIDS, mental health diagnosis, sleep apnea, morbid obesity)? @ -None Was patient admitted / discharged? Hospital course, mention meds given and route, prescriptions, significant lab abnormalities, going to OR and other pertinent info. @ -Discharge. 28 year old female with bilateral breast pain. On examination patient is pretty tearful and anxious. Patient states that she does have an appointment scheduled next week for a mammogram however is concerned that the breast pain has been worsening over the past week. Patient states that she would like to understand what is going. Here for exam reveals bilateral breast tenderness with mild erythema and fibrocystic breast changes. There are no obvious palpable masses or axillary lymph node enlargement. There is no nipple drainage. Patient is provided with dose of Toradol pending CT imaging and labs. CBC and CMP within normal limits, hcg less than 2.4 that is negative for . Reviewed results of CT imaging with the patient and recommended that she continue to follow-up outpatient with her primary care provider and received mammogram as scheduled. All questions answered at bedside and strict return parameters kristine with the patient she is verbalized understanding. Case discussed with Dr. Haddad Undiagnosed new problem with uncertain prognosis? @ -No Drug Therapy requiring intensive monitoring for toxicity (Heparin, Nitro, Insulin, Cardizem)? @ -No Were any procedures done? @ -No Diagnosis/symptom? @ -Bilateral breast pain Acute, or Chronic, or Acute on Chronic? @ -Acute Uncomplicated (without systemic symptoms) or Complicated (systemic symptoms)? @ -uncomplicated Side effects of treatment? @ -No Exacerbation, Progression, or Severe Exacerbation? @ -No Poses a threat to life or bodily function? How? (Chest pain, [place], [place], pneumonia, PE, COPD, DKA, ARF, appy, cholecystitis, CVA, Diverticulitis, Homicidal, Suicidal, threat to staff... and all critical care pts) @ -No - Lab Data Result diagrams: 10/29/23 11:44 10/29/23 11:44 Lab Results 10/29/23 10/29/23 Range/Units 11:44 11:44 WBC 5.5 (3.8-10.6) k/uL RBC 4.64 (3.80-5.40) m/uL Hgb 13.9 (11.4-16.0) gm/dL Hct 42.0 (34.0-46.0) % MCV 90.6 (80.0-100.0) fL MCH 30.0 (25.0-35.0) pg MCHC 33.1 (31.0-37.0) g/dL RDW 13.9 (11.5-15.5) % Plt Count 301 (150-450) k/uL MPV 7.4 Neutrophils % 64 % Lymphocytes % 25 % Monocytes % 6 % Eosinophils % 0 % Basophils % 1 % Neutrophils # 3.5 (1.3-7.7) k/uL Lymphocytes # 1.4 (1.0-4.8) k/uL Monocytes # 0.4 (0-1.0) k/uL Eosinophils # 0.0 (0-0.7) k/uL Basophils # 0.0 (0-0.2) k/uL Sodium 138 (137-145) mmol/L Potassium 4.6 (3.5-5.1) mmol/L Chloride 108 H (98-107) mmol/L Carbon Dioxide 22 (22-30) mmol/L Anion Gap 8 mmol/L BUN 10 (7-17) mg/dL Creatinine 0.69 (0.52-1.04) mg/dL Est GFR (CKD-EPI)AfAm >90 (>60 ml/min/1.73 sqM) Est GFR (CKD-EPI)NonAf >90 (>60 ml/min/1.73 sqM) Glucose 94 (74-99) mg/dL Calcium 9.2 (8.4-10.2) mg/dL Total Bilirubin 0.7 (0.2-1.3) mg/dL AST 33 (14-36) U/L ALT 26 (4-34) U/L Alkaline Phosphatase 64 (38-126) U/L Total Protein 7.2 (6.3-8.2) g/dL Albumin 4.3 (3.5-5.0) g/dL HCG, Quant <2.4 mIU/mL Disposition Clinical Impression: Breast pain in female Disposition: HOME SELF-CARE Condition: Good Instructions (If sedation given, give patient instructions): Fibrocystic Breast Changes (ED) Additional Instructions: Return to the emergency department for any new or worsening symptoms. Recommend that you continue to follow-up outpatient with your primary care provider and undergo mammogram testing at next week as scheduled. Continue Tylenol Motrin at home for symptomatic relief. Is patient prescribed a controlled substance at d/c from ED?: No Referrals: Anthony Restrepo MD [Primary Care Provider] - 1-2 days Time of Disposition: 14:29
[2023-10-29] MEDS ORDERED: RX INFO: IV CONTRAST WAS GIVEN 1 EACH MISC MISCELLANE PRN (11:38)
[2023-10-29 12:07] LABS: Basophils % (A) 1 %; Eosinophils % (A) 0 %; HGB 13.9 gm/dL (11.4-16.0); Lymphocytes # (A) 1.4 k/uL (1.0-4.8); Lymphocytes % (A) 25 %; MCHC 33.1 g/dL (31.0-37.0); MCV 90.6 fL (80.0-100.0); Mean Platelet Volume 7.4; Monocytes # (A) 0.4 k/uL (0-1.0); Monocytes % (A) 6 %; Neutrophils # (A) 3.5 k/uL (1.3-7.7); Neutrophils % (A) 64 %; Platelet Count 301 k/uL (150-450); RBC 4.64 m/uL (3.80-5.40); RDW 13.9 % (11.5-15.5); WBC 5.5 k/uL (3.8-10.6)
[2023-10-29 12:19] LABS: ALT 26 U/L (4-34); African American GFR (CKD) >90 (>60 ml/min/1.73 sqM); Anion Gap 8 mmol/L; Blood Urea Nitrogen 10 mg/dL (7-17); Calcium 9.2 mg/dL (8.4-10.2); Carbon Dioxide 22 mmol/L (22-30); Chloride 108 mmol/L (98-107); Glucose 94 mg/dL (74-99); Non-African American GFR(CKD) >90 (>60 ml/min/1.73 sqM); Sodium 138 mmol/L (137-145); Total Bilirubin 0.7 mg/dL (0.2-1.3)
[2023-10-29] MEDS: KETOROLAC 15 MG/ML 1 ML VIAL IVP STA (12:21)
[2023-10-29 12:22] LABS: AST 33 U/L (14-36); Albumin 4.3 g/dL (3.5-5.0); Alkaline Phosphatase 64 U/L (38-126); Potassium 4.6 mmol/L (3.5-5.1); Total Protein 7.2 g/dL (6.3-8.2)
[2023-10-29 12:35] LABS: HCG,Quantitative Serum <2.4 mIU/mL
--- NOTE | 2023-10-29 13:48 | CT ---
EXAMINATION TYPE: CT chest w con DATE OF EXAM: 10/29/2023 COMPARISON: Radiograph 01/14/2023 HISTORY: 28-year-old female Bilateral breast and axillary pain, swollen TECHNIQUE: Contiguous axial scanning of the chest after the administration of 100 ml mL of Isovue 300 . Coronal/sagittal reconstructions performed. CT DLP: 687.3mGycm. Automatic exposure control utilized for a dose reduction. FINDINGS: The heart is normal size without pericardial effusion. Aorta normal caliber with conventional arch vessel branching anatomy. Some residual thymic tissue within the mediastinum in keeping with patient's age. No thoracic lymphad enopathy by CT size criteria with particular attention to the axilla. Patient appears to have relatively fatty breast density. Breathing motion artifact of the lung bases. Some minimal strandy atelectasis is present. No consolid ation or pleural effusion. Visualized upper abdomen shows cholecystectomy clips. Bones: No osseous destructive process. IMPRESSION: Some minimal strandy atelectasis. Status post cholecystectomy. Otherwise, no specific abnormality see n. [facility], , 10/29/2023 1:45 PM
[2023-10-29 14:46] VITALS: BP 153/100; PULSE 66; TEMP 98.4
== END 2023-10-29 14:46 | disposition home or self-care (01) ==
LOC: EC 10:13
CPT/HCPCS: 36415; 71260; 80053; 84702; 85025; 96374; 99284

== ENCOUNTER → 2023-11-05 | Outpatient (CLI) | payer BC, OTHER ==
--- NOTE | 2023-11-05 14:38 | MM ---
Reason for Exam: Clinical finding. Baseline mammogram. Patient History: Menarche at age 13. First Full-Term at age 21. Currently using Unspecified Hormone, starting at age 22. Paternal aunt had breast cancer. Paternal grandmother had breast cancer. Maternal aunt had breast cancer. Prior Study Comparison: Patient's first Mammogram. No prior studies available for comparison. Tissue Density: There are scattered areas of fibroglandular density. Findings: Analyzed By CAD. The pattern is symmetrical. Benign skin calcifications in the medial right breast No suspicious groups of microcalcifications, spiculated or lobular masses, architectural distortion or other secondary signs of malignancy are mammographically apparent. Overall Assessment: Incomplete: need additional imaging evaluation, BI-RAD 0 Management: Diagnostic Breast Ultrasound of both breasts. A negative mammogram report should not preclude additional follow up of suspicious palpable abnormalities. Patient should continue monthly self breast exam. A clinical breast exam by your physician is recommended on an annual basis and results should be correlated with mammographic findings. Note on Shelby scores and lifetime risk: 1. A Shelby score greater than 3% is considered moderate risk. If this is the case, consider specialist referral to assess eligibility for a risk reducing agent. 2. If overall lifetime risk for the development of breast cancer is 20% or higher, the patient may qualify for future screening with alternating mammogram and breast MRI. [facility], , 11/05/2023 2:36 PM. Electronically signed and approved by: Phill Cooper D.O. Radiologis
--- NOTE | 2023-11-05 15:35 | USB ---
Reason for Exam: Clinical finding. Patient History: Menarche at age 13. First Full-Term at age 21. Currently using Unspecified Hormone, starting at age 22. Paternal aunt had breast cancer. Paternal grandmother had breast cancer. Maternal aunt had breast cancer. Findings: The whole breast of both breasts, the axilla of both breasts and the retroareolar of both breasts were scanned. No solid or cystic masses are identified.. Overall Assessment: Negative, BI-RAD 1 Management: Screening Mammogram of both breasts at age 42. A clinical breast exam by your physician is recommended on an annual basis and results should be correlated with mammographic findings. This exam should not preclude additional follow-up of suspicious palpable abnormalities. Results were given to the patient verbally at the time of exam. [facility], , 11/05/2023 3:23 PM. Electronically signed and approved by: Phill Cooper D.O. Radiologis
== END | disposition home or self-care (01) ==
LOC: RADMAMWWP 13:42
PROVIDERS: ATTEND Family Medicine
DX: N64.4 Mastodynia
CPT/HCPCS: 77062; 77066

== ENCOUNTER 2024-01-05 11:13 | Emergency (ER) | payer BC, OTHER ==
[2024-01-05] MEDS: ALPRAZolam 0.5 MG TAB PO STA (12:49)
--- NOTE | 2024-01-05 13:51 | ED ---
General Adult HPI - General Chief complaint: Psychiatric Symptoms Stated complaint: Anxiety Time Seen by Provider: 01/05/24 11:40 Source: patient, RN notes reviewed, old records reviewed Mode of arrival: ambulatory Limitations: no limitations - History of Present Illness Initial comments: Patient is a 28-year-old female presents emergency department for anxiety. She has a history of anxiety. Has been having a panic attack for the last 4 days. States that she had an episode of having an intrusive thought of possibly stabbing self with a fork however it "freaked me out" and she states she is not suicidal. Has not had another thought. However it did cause her to have a panic attack which she struggles with. Is on Klonopin and previously was on Xanax however leave she needs a dose of Xanax again as she has been under more stress lately. Denies any suicidal ideations, times complaints. Denies any hallucinations. Denies any homicidal ideations, attempts, plans. Presents with family who agrees that patient is not a danger to herself or others. Patient knows she states when she has to be admitted to the inpatient psych but feels this is just her anxiety and a panic attack at this time. Does have close follow-up with [facility]. - Related Data Home Medications Medication Instructions Recorded Confirmed ALPRAZolam [Xanax] 0.5 mg PO TID PRN 05/22/23 05/22/23 Albuterol Sulfate [Albuterol 2 puff PO RT-Q6H PRN 05/22/23 05/22/23 Sulfate Hfa] Cetirizine HCl [Zyrtec] 10 mg PO DAILY 05/22/23 05/22/23 dexAMETHasone [Decadron] 1 mg PO BID 05/22/23 05/22/23 lisinopriL [Zestril] 10 mg PO DAILY 05/22/23 05/22/23 Previous Rx's Medication Instructions Recorded ALPRAZolam [Xanax] 0.5 mg PO BID PRN 3 Days #6 tablet 01/05/24 Allergies Allergy/AdvReac Type Severity Reaction Status Date / Time No Known Allergies Allergy Verified 01/05/24 11:19 Review of Systems ROS Statement: Those systems with pertinent positive or pertinent negative responses have been documented in the HPI. Review of Systems: CONST: Denies fever EYES: Denies blurry vision ENT: Denies nasal congestion C/V: Denies Chest pain RESP: Denies shortness of breath GI: Denies abdominal pain : Denies dysuria SKIN: Denies rash. MSK: Denies joint pain. NEURO: Denies headache ROS Other: All systems not noted in ROS Statement are negative. Past Medical History Past Medical History: No Reported History Additional Past Medical History / Comment(s): pre-eclampsia, IBS History of Any Multi-Drug Resistant Organisms: None Reported Past Surgical History: Section, Cholecystectomy Past Psychological History: Anxiety, Bipolar, Depression, PTSD Smoking Status: Current every day smoker Past Alcohol Use History: None Reported Past Drug Use History: Marijuana - Past Family History Father Family Medical History: Hypertension Additional Family Medical History / Comment(s): INSOMNIA General Exam - General Exam Comments Initial Comments: General: Appears anxious HEAD: Normal with no signs of head trauma. EYES: EOMI ENT: Hearing grossly intact, normal oropharynx. RESPIRATORY: Clear breath sounds bilaterally. No wheezes, rales, or rhonchi. C/V: Tachycardic. S1 and S2 auscultated, no edema, peripheral pulses 2+ and intact throughout ABD: Abd is soft, nontender, nondistended EXT: Normal range of motion, no obvious deformity SKIN: No rashes or lesions observed on exposed skin. NEURO: Alert and oriented x 4. Limitations: no limitations Course Vital Signs 01/05/24 01/05/24 11:15 13:53 Temperature 99.1 F 98.2 F Pulse Rate 140 H 79 Respiratory 28 H 18 Rate Blood Pressure 129/90 131/89 O2 Sat by Pulse 99 97 Oximetry Medical Decision Making - Medical Decision Making Was pt. sent in by a medical professional or institution (, PA, CAR FILLER, urgent care, hospital, or retirement...) When possible be specific @ -No Did you speak to anyone other than the patient for history (EMS, parent, family, police, friend...)? What history was obtained from this source @ -No Did you review nursing and triage notes (agree or disagree)? Why? @ -I reviewed and agree with nursing and triage notes Were old charts reviewed (outside hosp., previous admission, EMS record, old EKG, old radiological studies, urgent care reports/EKG's, retirement records)? Report findings @ -No old charts were reviewed Differential Diagnosis (chest pain, altered mental status, abdominal pain women, abdominal pain men, vaginal bleeding, weakness, fever, dyspnea, syncope, headache, dizziness, GI bleed, back pain, seizure, CVA, palpatations, mental health, musculoskeletal)? @ -Anxiety, panic attack. This list is not all inclusive. EKG interpreted by me (3pts min.). @ -As above X-rays interpreted by me (1pt min.). @ -None done CT interpreted by me (1pt min.). @ -None done U/S interpreted by me (1pt. min.). @ -None done What testing was considered but not performed or refused? (CT, X-rays, U/S, labs)? Why? @ -None What meds were considered but not given or refused? Why? @ -None Did you discuss the management of the patient with other professionals (professionals i.e. , PA, CAR FILLER, lab, RT, psych nurse, social media community manager, dictating machine mechanic, teacher, safety patrol officer, returned case inspector)? Give summary @ -No Was smoking cessation discussed for >3mins.? @ -No Was critical care preformed (if so, how long)? @ -No Were there social determinants of health that impacted care today? How? (Homelessness, low income, unemployed, alcoholism, drug addiction, transportation, low edu. Level, literacy, decrease access to med. care, penitentiary, rehab)? @ -No Was there de-escalation of care discussed even if they declined (Discuss DNR or withdrawal of care, Hospice)? DNR status @ -No What co-morbidities impacted this encounter? (DM, HTN, Smoking, COPD, CAD, Cancer, CVA, ARF, Chemo, Hep., AIDS, mental health diagnosis, sleep apnea, morbid obesity)? @ -Anxiety Was patient admitted / discharged? Hospital course, mention meds given and route, prescriptions, significant lab abnormalities, going to OR and other pertinent info. @ -Based on patient's presentation and physical exam, appears to be having a panic attack or anxiety episode. I do not believe patient is a danger to herself or others and she is in agreement this plan. Family is also in agreement this plan. We discussed having EPS evaluate the patient but she states she has follow-up with [facility] which she just recently reach back out to does not believe she requires it at this time. I am in agreement with this. Vitals are remarkable for tachycardia. Remainder the vital signs within acceptable limits. Patient be administered a dose of Xanax and we we will obtain a screening EKG. Patient was in agreement this plan. EKG shows no signs of acute ischemia. After Xanax, patient feels improved. She will be discharged home at this time with a short-term prescription of Xanax. She was in agreement this plan. Strict return precautions discussed. I will provide the patient with a prescription for Xanax. I instructed the patient to follow up with their PCP in the next 1-3 days. I explained that the patient should return to the emergency department if they experience any worsening symptoms. Strict return precautions were discussed with the patient. The patient expressed understanding of these instructions. I answered all questions that the patient had. The patient was discharged home in good condition with their prescriptions and follow up information. Undiagnosed new problem with uncertain prognosis? @ -No Drug Therapy requiring intensive monitoring for toxicity (Heparin, Nitro, Insulin, Cardizem)? @ -No Were any procedures done? @ -No Diagnosis/symptom? @ -Anxiety Acute, or Chronic, or Acute on Chronic? @ -Acute Uncomplicated (without systemic symptoms) or Complicated (systemic symptoms)? @ -Uncomplicated Side effects of treatment? @ -No Exacerbation, Progression, or Severe Exacerbation? @ -No Poses a threat to life or bodily function? How? (Chest pain, [place], [place], pneumonia, PE, COPD, DKA, ARF, appy, cholecystitis, CVA, Diverticulitis, Homicidal, Suicidal, threat to staff... and all critical care pts) @ -Unlikely at this time - EKG Data -: EKG Interpreted by Me EKG Comments: 12-lead Electrocardiogram Interpretation Note EKG was reviewed and interpreted by myself. 12-lead ECG performed at 1244 is interpreted by me as revealing normal sinus rhythm at a rate of 71 beats per minute. [place] is normal. DC interval is 165 ms, QRS duration is 92 ms, QTc is 392 ms.. There were no ST or T wave abnormalities to suggest myocardial ischemia or injury. R wave progression across the precordium was satisfactory. By my interpretation this EKG is non-diagnostic for acute ischemia. Disposition Clinical Impression: Anxiety Disposition: HOME SELF-CARE Condition: Good Instructions (If sedation given, give patient instructions): Anxiety (ED) Additional Instructions: Follow-up with your PCP in [facility] regarding anxiety in the next 1 to 3 days. Please return to the emergency department if any worsening symptoms. Prescriptions: ALPRAZolam [Xanax] 0.5 mg PO BID PRN 3 Days #6 tablet PRN Reason: Anxiety Is patient prescribed a controlled substance at d/c from ED?: Yes When asked, does pt state using other controlled substances?: No If prescribed controlled substance>3 days was MAPS reviewed?: Prescribed <3 Days Referrals: Anthony Restrepo MD [Primary Care Provider] - 1-2 days Time of Disposition: 13:45
[2024-01-05 13:54] VITALS: BP 131/89; PULSE 79; RESP 18; TEMP 98.2
== END 2024-01-05 13:58 | disposition home or self-care (01) ==
LOC: EC 11:13
DX: F41.0 Panic disorder [episodic paroxysmal anxiety] (principal); F17.200 Nicotine dependence, unspecified, uncomplicated; Z90.49 Acquired absence of other specified parts of digestive tract
CPT/HCPCS: 93005; 99284

== ENCOUNTER 2024-01-06 19:07 | Emergency (ER) | payer BC, OTHER ==
--- NOTE | 2024-01-06 20:37 | ED ---
Anxiety HPI - General Chief Complaint: Anxiety Stated Complaint: Mental Health Time Seen by Provider: 01/06/24 20:35 Source: patient, RN notes reviewed Mode of arrival: ambulatory - History of Present Illness Initial Comments: 28-year-old female with history of anxiety and hypertension presenting to the ER with chief complaint of chest pain x 4 days. Patient has had multiple ER visits for this over the past couple of days including here and at a different hospital where they diagnosed her with anxiety and discharged her. States she recently changed her medication regimen from Ativan to Klonopin and believes it is not working as well. States she has been given multiple benzodiazepines in the ER over the past few days with no relief of symptoms, which she states is abnormal for her. Patient describes pain as a tightness in her chest. Patient has never had this pain before. Denies cardiac history. Patient states she has been under a lot of stress lately and believes this is most likely anxiety but wants to "make sure that it is not something else". Denies suicidal or homicidal ideation - Related Data Home Medications: Home Medications Medication Instructions Recorded Confirmed ALPRAZolam [Xanax] 0.5 mg PO TID PRN 05/22/23 05/22/23 Albuterol Sulfate [Albuterol 2 puff PO RT-Q6H PRN 05/22/23 05/22/23 Sulfate Hfa] Cetirizine HCl [Zyrtec] 10 mg PO DAILY 05/22/23 05/22/23 dexAMETHasone [Decadron] 1 mg PO BID 05/22/23 05/22/23 lisinopriL [Zestril] 10 mg PO DAILY 05/22/23 05/22/23 Previous Rx's Medication Instructions Recorded ALPRAZolam [Xanax] 0.5 mg PO BID PRN 3 Days #6 tablet 01/05/24 hydrOXYzine HCL [Atarax] 50 mg PO Q6H PRN #15 tablet 01/06/24 Allergies/Adverse Reactions: Allergies Allergy/AdvReac Type Severity Reaction Status Date / Time No Known Allergies Allergy Verified 01/06/24 19:24 Review of Systems ROS Statement: Those systems with pertinent positive or pertinent negative responses have been documented in the HPI. ROS Other: All systems not noted in ROS Statement are negative. Past Medical History Past Medical History: No Reported History Additional Past Medical History / Comment(s): pre-eclampsia, IBS History of Any Multi-Drug Resistant Organisms: None Reported Past Surgical History: Section, Cholecystectomy Past Psychological History: Anxiety, Bipolar, Depression, PTSD Smoking Status: Current every day smoker Past Alcohol Use History: None Reported Past Drug Use History: Marijuana - Past Family History Father Family Medical History: Hypertension Additional Family Medical History / Comment(s): INSOMNIA General Exam Limitations: no limitations General appearance: alert, in no apparent distress Head exam: Present: atraumatic, normocephalic, normal inspection Eye exam: Present: normal appearance, PERRL, EOMI. Absent: scleral icterus, conjunctival injection, periorbital swelling Respiratory exam: Present: normal lung sounds bilaterally. Absent: respiratory distress, wheezes, rales, rhonchi, stridor Cardiovascular Exam: Present: regular rate, normal rhythm, normal heart sounds. Absent: systolic murmur, diastolic murmur, rubs, gallop, clicks Neurological exam: Present: alert, oriented X3 Psychiatric exam: Present: normal affect, normal mood, other (Patient is very tearful on exam). Absent: homicidal ideation, suicidal ideation Skin exam: Present: warm, dry, intact, normal color. Absent: rash Course Vital Signs 01/06/24 01/06/24 01/06/24 19:22 21:09 23:13 Temperature 98.3 F 99.3 F Pulse Rate 90 93 73 Respiratory 18 16 19 Rate Blood Pressure 148/90 137/82 135/91 O2 Sat by Pulse 100 98 96 Oximetry Medical Decision Making - Medical Decision Making Was pt. sent in by a medical professional or institution (, PA, GRADUATE ASSISTANT, urgent care, hospital, or [facility]...) When possible be specific @ -No Did you speak to anyone other than the patient for history (EMS, parent, family, police, friend...)? What history was obtained from this source @ -No Did you review nursing and triage notes (agree or disagree)? Why? @ -I reviewed and agree with nursing and triage notes Were old charts reviewed (outside hosp., previous admission, EMS record, old EKG, old radiological studies, urgent care reports/EKG's, [facility] records)? Report findings @ -Previous ER visits reviewed Differential Diagnosis (chest pain, altered mental status, abdominal pain women, abdominal pain men, vaginal bleeding, weakness, fever, dyspnea, syncope, head ache, dizziness, GI bleed, back pain, seizure, CVA, palpatations, mental health, musculoskeletal)? @ -Differential Chest Pain: Stable Angina, Unstable Angina, STEMI, NSTEMI Aortic Dissection, Pneumothorax, Musculoskeletal, Esophageal Spasm GERD, Cholecystitis, Pancreatitis, Zoster, this is not meant to be an all-inclusive list. EKG interpreted by me (3pts min.). @ -As above X-rays interpreted by me (1pt min.). @ -Chest x-ray reveals no acute process CT interpreted by me (1pt min.). @ -None done U/S interpreted by me (1pt. min.). @ -None done What testing was considered but not performed or refused? (CT, X-rays, U/S, labs)? Why? @ -None What meds were considered but not given or refused? Why? @ -None Did you discuss the management of the patient with other professionals (professionals i.e. , PA, GRADUATE ASSISTANT, lab, RT, psych nurse, social scientist, customer service specialist, teacher, aviation safety officer, pillowcase cutter)? Give summary @ -No Was smoking cessation discussed for >3mins.? @ -No Was critical care preformed (if so, how long)? @ -No Were there social determinants of health that impacted care today? How? (Lesvia elessness, low income, unemployed, alcoholism, drug addiction, transportation, low edu. Level, literacy, decrease access to med. care, nursing home, rehab)? @ -No Was there de-escalation of care discussed even if they declined (Discuss DNR or withdrawal of care, Hospice)? DNR status @ -No What co-morbidities impacted this encounter? (DM, HTN, Smoking, COPD, CAD, Cancer, CVA, ARF, Chemo, Hep., AIDS, mental health diagnosis, sleep apnea, morbid obesity)? @ -None Was patient admitted / discharged? Hospital course, mention meds given and route, prescriptions, significant lab abnormalities, going to OR and other pertinent info. @ -Discharge. This is a 28-year-old female history of anxiety presenting with chest pain x 4 days. Patient has had multiple ER visits over the past 4 days for anxiety. Patient does have a history of hypertension, otherwise no other cardiac risk factors. Vital signs within acceptable limits. Patient was given hydroxyzine. EKG reveals sinus tachycardia with no ST changes. Lab work including CBC, CMP, D-dimer, troponin unremarkable. Chest x-ray reveals no acute process. Urine negative. Discussed negative results with patient. Given history and physical examination, patient's symptoms are consistent with acute anxiety. Patient reports improvement of symptoms and would like to follow-up with [facility] outpatient. I believe this is reasonable at this time as patient is not having any suicidal or homicidal ideation. Appropriate return precautions and follow-up care discussed. Patient was given short course of hydroxyzine to use as needed. Case was discussed with my ED attending Dr. Henry. Undiagnosed new problem with uncertain prognosis? @ -No Drug Therapy requiring intensive monitoring for toxicity (Heparin, Nitro, Insulin, Cardizem)? @ -No Were any procedures done? @ -No Diagnosis/symptom? @ -Acute anxiety Acute, or Chronic, or Acute on Chronic? @ -Acute Uncomplicated (without systemic symptoms) or Complicated (systemic symptoms)? @ -Complicated Side effects of treatment? @ -No Exacerbation, Progression, or Severe Exacerbation? @ -No Poses a threat to life or bodily function? How? (Chest pain, [place], [place], pneumonia, PE, COPD, DKA, ARF, appy, cholecystitis, CVA, Diverticulitis, Homicidal, Suicidal, threat to staff... and all critical care pts) @ -Not at this time - Lab Data Result diagrams: 01/06/24 21:06 01/06/24 21:06 Lab Results 01/06/24 01/06/24 01/06/24 Range/Units 21:06 21:06 21:06 WBC 10.4 (3.8-10.6) k/uL RBC 4.86 (3.80-5.40) m/uL Hgb 14.5 (11.4-16.0) gm/dL Hct 43.6 (34.0-46.0) % MCV 89.7 (80.0-100.0) fL MCH 29.8 (25.0-35.0) pg MCHC 33.2 (31.0-37.0) g/dL RDW 13.2 (11.5-15.5) % Plt Count 300 (150-450) k/uL MPV 7.5 Neutrophils % 68 % Lymphocytes % 25 % Monocytes % 5 % Eosinophils % 0 % Basophils % 0 % Neutrophils # 7.1 (1.3-7.7) k/uL Lymphocytes # 2.6 (1.0-4.8) k/uL Monocytes # 0.5 (0-1.0) k/uL Eosinophils # 0.0 (0-0.7) k/uL Basophils # 0.0 (0-0.2) k/uL D-Dimer 0.42 (<0.60) mg/L FEU Sodium 138 (137-145) mmol/L Potassium 4.2 (3.5-5.1) mmol/L Chloride 110 H (98-107) mmol/L Carbon Dioxide 18 L (22-30) mmol/L Anion Gap 10 mmol/L BUN 16 (7-17) mg/dL Creatinine 0.79 (0.52-1.04) mg/dL Est GFR (CKD-EPI)AfAm >90 (>60 ml/min/1.73 sqM) Est GFR (CKD-EPI)NonAf >90 (>60 ml/min/1.73 sqM) Glucose 84 (74-99) mg/dL Calcium 9.5 (8.4-10.2) mg/dL Total Bilirubin 0.9 (0.2-1.3) mg/dL AST 24 (14-36) U/L ALT 23 (4-34) U/L Alkaline Phosphatase 82 (38-126) U/L Troponin I (0.000-0.034) ng/mL Total Protein 8.0 (6.3-8.2) g/dL Albumin 4.7 (3.5-5.0) g/dL Urine HCG, Qual (Not Detectd) 01/06/24 01/06/24 Range/Units 21:06 22:13 WBC (3.8-10.6) k/uL RBC (3.80-5.40) m/uL Hgb (11.4-16.0) gm/dL Hct (34.0-46.0) % MCV (80.0-100.0) fL MCH (25.0-35.0) pg MCHC (31.0-37.0) g/dL RDW (11.5-15.5) % Plt Count (150-450) k/uL MPV Neutrophils % % Lymphocytes % % Monocytes % % Eosinophils % % Basophils % % Neutrophils # (1.3-7.7) k/uL Lymphocytes # (1.0-4.8) k/uL Monocytes # (0-1.0) k/uL Eosinophils # (0-0.7) k/uL Basophils # (0-0.2) k/uL D-Dimer (<0.60) mg/L FEU Sodium (137-145) mmol/L Potassium (3.5-5.1) mmol/L Chloride (98-107) mmol/L Carbon Dioxide (22-30) mmol/L Anion Gap mmol/L BUN (7-17) mg/dL Creatinine (0.52-1.04) mg/dL Est GFR (CKD-EPI)AfAm (>60 ml/min/1.73 sqM) Est GFR (CKD-EPI)NonAf (>60 ml/min/1.73 sqM) Glucose (74-99) mg/dL Calcium (8.4-10.2) mg/dL Total Bilirubin (0.2-1.3) mg/dL AST (14-36) U/L ALT (4-34) U/L Alkaline Phosphatase (38-126) U/L Troponin I <0.012 (0.000-0.034) ng/mL Total Protein (6.3-8.2) g/dL Albumin (3.5-5.0) g/dL Urine HCG, Qual Not Detected (Not Detectd) - EKG Data -: EKG Interpreted by Md EKG Comments: EKG reveals sinus tachycardia with no ST changes. Ventricular rate 106, MN interval 151, QRS duration 97, QT/QTc 330/392 Disposition Clinical Impression: Acute anxiety Disposition: HOME SELF-CARE Condition: Stable Instructions (If sedation given, give patient instructions): Generalized Anxiety Disorder (ED) Additional Instructions: Follow-up with [facility] as discussed. Please return to the Emergency Department if symptoms worsen or any other concerns. Prescriptions: hydrOXYzine HCL [Atarax] 50 mg PO Q6H PRN #15 tablet PRN Reason: Anxiety Is patient prescribed a controlled substance at d/c from ED?: No Referrals: Anthony Restrepo MD [Primary Care Provider] - 1-2 days Time of Disposition: 23:11
[2024-01-06 21:13] LABS: Basophils % (A) 0 %; Eosinophils % (A) 0 %; HCT 43.6 % (34.0-46.0); HGB 14.5 gm/dL (11.4-16.0); Lymphocytes # (A) 2.6 k/uL (1.0-4.8); Lymphocytes % (A) 25 %; MCH 29.8 pg (25.0-35.0); MCHC 33.2 g/dL (31.0-37.0); MCV 89.7 fL (80.0-100.0); Mean Platelet Volume 7.5; Monocytes # (A) 0.5 k/uL (0-1.0); Monocytes % (A) 5 %; Neutrophils # (A) 7.1 k/uL (1.3-7.7); Neutrophils % (A) 68 %; Platelet Count 300 k/uL (150-450); RBC 4.86 m/uL (3.80-5.40); RDW 13.2 % (11.5-15.5); WBC 10.4 k/uL (3.8-10.6)
[2024-01-06 21:23] LABS: ALT 23 U/L (4-34); AST 24 U/L (14-36); African American GFR (CKD) >90 (>60 ml/min/1.73 sqM); Albumin 4.7 g/dL (3.5-5.0); Alkaline Phosphatase 82 U/L (38-126); Anion Gap 10 mmol/L; Blood Urea Nitrogen 16 mg/dL (7-17); Calcium 9.5 mg/dL (8.4-10.2); Carbon Dioxide 18 mmol/L (22-30); Chloride 110 mmol/L (98-107); Glucose 84 mg/dL (74-99); Non-African American GFR(CKD) >90 (>60 ml/min/1.73 sqM); Potassium 4.2 mmol/L (3.5-5.1); Sodium 138 mmol/L (137-145); Total Bilirubin 0.9 mg/dL (0.2-1.3)
--- NOTE | 2024-01-06 21:42 | XR ---
EXAMINATION TYPE: XR chest 2V DATE OF EXAM: 01/06/2024 9:15 PM COMPARISON: Previous chest radiograph 01/14/2023. CLINICAL INDICATION: Female, 28 years old with history of chest pain; [facility] TECHNIQUE: XR chest 2V Frontal and lateral views of the chest. FINDINGS: Lungs/Pleura: There is no evidence of pleural effusion, focal consolidation, or pneumothorax. Pulmonary vascularity: Unremarkable. Heart/mediastinum: Cardiomediastinal silhouette is unremarkable. Musculoskeletal: No acute osseous pathology. Other findings: None IMPRESSION: No acute cardiopulmonary disease/process. [facility], , 01/06/2024 9:40 PM
[2024-01-06] MEDS: hydrOXYzine HCL 25 MG TAB PO STA (22:47)
[2024-01-06] MEDS: NICOTINE 7MG/24HR PATCH TRANSDERM STA (22:48)
[2024-01-06 23:24] VITALS: BP 135/91; PULSE 73; RESP 19; TEMP 99.3
== END 2024-01-06 23:28 | disposition home or self-care (01) ==
LOC: EC 19:07
DX: F41.9 Anxiety disorder, unspecified (principal); F17.200 Nicotine dependence, unspecified, uncomplicated; Z90.49 Acquired absence of other specified parts of digestive tract
CPT/HCPCS: 36415; 71046; 80053; 81025; 82075; 84484; 85025; 85379; 93005; 99285

== ENCOUNTER 2024-01-09 02:50 | Emergency (ER) | payer BC, OTHER ==
[2024-01-09] MEDS: hydrOXYzine HCL 25 MG TAB PO STA (05:30)
--- NOTE | 2024-01-09 06:51 | ED ---
Psych HPI - General Chief Complaint: Psychiatric Symptoms Stated Complaint: Psych Time Seen by Provider: 01/09/24 03:25 Source: patient Mode of arrival: ambulatory - History of Present Illness Initial Comments: This patient is a 28-year-old woman who presents to have psychiatric evaluation. The patient states that she is being bothered by having an intrusive thought that she cannot stop. She did not share the details of what she is thinking about but states she is not suicidal or homicidal. The patient states that this has been going on intermittently now for a number of weeks. I does affect her sleep. She has tremendous anxiety related to this inability to stop thinking about the problem. Patient denies having visual or auditory hallucinations. MD Complaint: other -: week(s) Associated Psychiatric Symptoms: none, racing thoughts Quality: constant Improves With: medication (Vistaril) Worsens With: none Associated Symptoms: denies other symptoms - Related Data Home Medications Medication Instructions Recorded Confirmed Albuterol Sulfate [Albuterol 2 puff PO RT-Q6H PRN 05/22/23 05/22/23 Sulfate Hfa] Cetirizine HCl [Zyrtec] 10 mg PO DAILY 05/22/23 05/22/23 Previous Rx's Medication Instructions Recorded FLUoxetine HCL [PROzac] 40 mg PO DAILY 30 Days #30 cap 01/15/24 Ibuprofen [Motrin] 600 mg PO Q6HR PRN tab 01/15/24 Nicotine 14Mg/24Hr Patch [Habitrol] 1 patch TRANSDERM DAILY 14 Days 01/15/24 #14 patch hydrOXYzine pamoate [Vistaril] 25 mg PO DAILY PRN 30 Days #30 cap 01/15/24 traZODone HCL 50 - 100 mg PO HS PRN 30 Days #30 01/15/24 tablet Allergies Allergy/AdvReac Type Severity Reaction Status Date / Time No Known Allergies Allergy Verified 01/11/24 15:45 Review of Systems ROS Statement: Those systems with pertinent positive or pertinent negative responses have been documented in the HPI. ROS Other: All systems not noted in ROS Statement are negative. Constitutional: Denies: fever, weakness Eyes: Denies: vision change Respiratory: Denies: cough, dyspnea Cardiovascular: Denies: chest pain, palpitations Gastrointestinal: Denies: abdominal pain, vomiting, diarrhea Genitourinary: Denies: dysuria, hematuria, abnormal menses Musculoskeletal: Denies: back pain Neurological: Denies: headache, weakness Psychiatric: Reports: anxiety, other. Denies: homicidal thoughts, suicidal thoughts Past Medical History Past Medical History: No Reported History Additional Past Medical History / Comment(s): pre-eclampsia, IBS History of Any Multi-Drug Resistant Organisms: None Reported Past Surgical History: Section, Cholecystectomy Past Psychological History: Anxiety, Bipolar, Depression, PTSD Smoking Status: Current every day smoker Past Alcohol Use History: None Reported Past Drug Use History: Marijuana - Past Family History Father Family Medical History: Hypertension Additional Family Medical History / Comment(s): INSOMNIA General Exam General appearance: alert, in no apparent distress Head exam: Present: atraumatic, normocephalic Eye exam: Present: normal appearance. Absent: scleral icterus, conjunctival injection Neck exam: Present: normal inspection Respiratory exam: Present: normal lung sounds bilaterally. Absent: respiratory distress, wheezes, rales, rhonchi, stridor, accessory muscle use Cardiovascular Exam: Present: regular rate, normal rhythm, normal heart sounds. Absent: systolic murmur, diastolic murmur, rubs, gallop GI/Abdominal exam: Present: soft. Absent: distended, tenderness, guarding, rebound, rigid, mass Extremities exam: Present: normal inspection, normal capillary refill. Absent: pedal edema, calf tenderness Back exam: Present: normal inspection. Absent: CVA tenderness (R), CVA tenderness (L) Neurological exam: Present: alert, oriented X3 Psychiatric exam: Present: anxious. Absent: depressed, agitated, flat affect, manic, homicidal ideation, suicidal ideation Skin exam: Present: warm, dry, intact, normal color. Absent: rash Course Vital Signs 01/09/24 01/09/24 01/09/24 02:51 07:26 10:34 Temperature 98.2 F 97.8 F 98.0 F Pulse Rate 131 H 81 Respiratory 22 17 16 Rate Blood Pressure 149/101 144/97 O2 Sat by Pulse 95 99 Oximetry Medical Decision Making - Medical Decision Making Was pt. sent in by a medical professional or institution (, PA, DIGITAL SPECIALIST, urgent care, hospital, or [facility]...) When possible be specific @ -[No] Did you speak to anyone other than the patient for history (EMS, parent, family, police, friend...)? What history was obtained from this source @ -[No] Did you review nursing and triage notes (agree or disagree)? Why? @ -[I reviewed and agree with nursing and triage notes] Were old charts reviewed (outside hosp., previous admission, EMS record, old EKG, old radiological studies, urgent care reports/EKG's, [facility] records)? Report findings @ -[No old charts were reviewed] Differential Diagnosis (chest pain, altered mental status, abdominal pain women, abdominal pain men, vaginal bleeding, weakness, fever, dyspnea, syncope, headache, dizziness, GI bleed, back pain, seizure, CVA, palpatations, mental health, musculoskeletal)? @ -[Differential Mental Health Depression, anxiety, bipolar, psychosis, schizophrenia, borderline personality, situational depression, adjustment disorder, behavioral disorder, brain tumor, malingering, substance abuse, encephalopathy, medication reaction, dementia, hypothyroidism, degenerative neurologic disorder, lupus.... This is not meant to be all-inclusive list EKG interpreted by me (3pts min.). @ -[As above] X-rays interpreted by me (1pt min.). @ -[None done] CT interpreted by me (1pt min.). @ -[None done] U/S interpreted by me (1pt. min.). @ -[None done] What testing was considered but not performed or refused? (CT, X-rays, U/S, labs)? Why? @ -[None] What meds were considered but not given or refused? Why? @ -[None] Did you discuss the management of the patient with other professionals (professionals i.e. , PA, DIGITAL SPECIALIST, lab, RT, psych nurse, social research assistant, transportation department head, teacher, commissary officer, social work case manager)? Give summary @ -[Case discussed with EPS personnel. Was smoking cessation discussed for >3mins.? @ -[No] Was critical care preformed (if so, how long)? @ -[No] Were there social determinants of health that impacted care today? How? (Homelessness, low income, unemployed, alcoholism, drug addiction, transportation, low edu. Level, literacy, decrease access to med. care, retirement, rehab)? @ -[No] Was there de-escalation of care discussed even if they declined (Discuss DNR or withdrawal of care, Hospice)? DNR status @ -[No] What co-morbidities impacted this encounter? (DM, HTN, Smoking, COPD, CAD, Cancer, CVA, ARF, Chemo, Hep., AIDS, mental health diagnosis, sleep apnea, morbid obesity)? @ -[None] Was patient admitted / discharged? Hospital course, mention meds given and route, prescriptions, significant lab abnormalities, going to OR and other pertinent info. @ -[This patient is a 28-year-old woman who was signed out to the following physician at shift change. Subsequently reported to me that she had been seen by EPS and was cleared to continue care as outpatient. Undiagnosed new problem with uncertain prognosis? @ -[No] Drug Therapy requiring intensive monitoring for toxicity (Heparin, Nitro, Insulin, Cardizem)? @ -[No] Were any procedures done? @ -[No] Diagnosis/symptom? @ -[Mood disorder, acute Acute anxiety Acute, or Chronic, or Acute on Chronic? @ -[Acute Uncomplicated (without systemic symptoms) or Complicated (systemic symptoms)? @ -[Uncomplicated Side effects of treatment? @ -[No] Exacerbation, Progression, or Severe Exacerbation? @ -[No] Poses a threat to life or bodily function? How? (Chest pain, [place], [place], pneumonia, PE, COPD, DKA, ARF, appy, cholecystitis, CVA, Diverticulitis, Homicidal, Suicidal, threat to staff... and all critical care pts) @ -[No] Disposition Clinical Impression: Mood disorder, Acute anxiety Disposition: HOME SELF-CARE Condition: Good Is patient prescribed a controlled substance at d/c from ED?: No Referrals: Anthony Restrepo MD [Primary Care Provider] - 1-2 days
[2024-01-09 10:34] VITALS: BP 144/97; PULSE 81; RESP 16; TEMP 98
== END 2024-01-09 11:00 | disposition home or self-care (01) ==
LOC: EC 02:50
DX: F31.9 Bipolar disorder, unspecified (principal); F41.9 Anxiety disorder, unspecified; F17.200 Nicotine dependence, unspecified, uncomplicated
CPT/HCPCS: 82075; 99285

== ENCOUNTER 2024-01-11 14:24 | Inpatient (IN) | payer BC, MEDICAID ==
--- NOTE | 2024-01-11 15:06 | ED ---
General Adult HPI - General Stated complaint: Mental Health Time Seen by Provider: 01/11/24 14:38 Source: patient, RN notes reviewed Mode of arrival: ambulatory Limitations: no limitations - History of Present Illness Initial comments: 28-year-old female presents emergency department chief complaint of depression anxiety suicide nation. Patient states that she has been having severe panic attacks states she had multiple medications. She states eventually takes left meds that helps but when they wear off symptoms are usually okay for short period time or worse. She states she cannot keep living like this. She has been trying to get in with psychiatrist. She has contacted [facility]. Denies illicit drug use no alcohol abuse. - Related Data Home Medications Medication Instructions Recorded Confirmed ALPRAZolam [Xanax] 0.5 mg PO TID PRN 05/22/23 05/22/23 Albuterol Sulfate [Albuterol 2 puff PO RT-Q6H PRN 05/22/23 05/22/23 Sulfate Hfa] Cetirizine HCl [Zyrtec] 10 mg PO DAILY 05/22/23 05/22/23 dexAMETHasone [Decadron] 1 mg PO BID 05/22/23 05/22/23 lisinopriL [Zestril] 10 mg PO DAILY 05/22/23 05/22/23 Previous Rx's Medication Instructions Recorded ALPRAZolam [Xanax] 0.5 mg PO BID PRN 3 Days #6 tablet 01/05/24 hydrOXYzine HCL [Atarax] 50 mg PO Q6H PRN #15 tablet 01/06/24 Allergies Allergy/AdvReac Type Severity Reaction Status Date / Time No Known Allergies Allergy Verified 01/11/24 15:45 Review of Systems ROS Statement: Those systems with pertinent positive or pertinent negative responses have been documented in the HPI. ROS Other: All systems not noted in ROS Statement are negative. Past Medical History Past Medical History: No Reported History Additional Past Medical History / Comment(s): pre-eclampsia, IBS History of Any Multi-Drug Resistant Organisms: None Reported Past Surgical History: Section, Cholecystectomy Past Psychological History: Anxiety, Bipolar, Depression, PTSD Smoking Status: Current every day smoker Past Alcohol Use History: None Reported Past Drug Use History: Marijuana - Past Family History Father Family Medical History: Hypertension Additional Family Medical History / Comment(s): INSOMNIA General Exam Limitations: no limitations General appearance: alert, in no apparent distress Head exam: Present: atraumatic, normocephalic, normal inspection Eye exam: Present: normal appearance, PERRL, EOMI. Absent: scleral icterus, conjunctival injection, periorbital swelling ENT exam: Present: normal exam, mucous membranes moist Neck exam: Present: normal inspection, full ROM. Absent: tenderness, meningismus, lymphadenopathy Respiratory exam: Present: normal lung sounds bilaterally. Absent: respiratory distress, wheezes, rales, rhonchi, stridor Cardiovascular Exam: Present: regular rate, normal rhythm, normal heart sounds. Absent: systolic murmur, diastolic murmur, rubs, gallop, clicks Neurological exam: Present: alert, oriented X3, CN II-XII intact Psychiatric exam: Present: anxious Course Vital Signs 01/11/24 01/11/24 15:45 22:16 Temperature 98.3 F 97.9 F Pulse Rate 105 H 87 Respiratory 18 18 Rate Blood Pressure 139/91 130/82 O2 Sat by Pulse 100 97 Oximetry Medical Decision Making - Medical Decision Making Was pt. sent in by a medical professional or institution (, PA, ALUM MIXER, urgent care, hospital, or half-way...) When possible be specific @ -No Did you speak to anyone other than the patient for history (EMS, parent, family, police, friend...)? What history was obtained from this source @ -No Did you review nursing and triage notes (agree or disagree)? Why? @ -I reviewed and agree with nursing and triage notes Were old charts reviewed (outside hosp., previous admission, EMS record, old EKG, old radiological studies, urgent care reports/EKG's, half-way records)? Report findings @ -No old charts were reviewed Differential Diagnosis (chest pain, altered mental status, abdominal pain women, abdominal pain men, vaginal bleeding, weakness, fever, dyspnea, syncope, headache, dizziness, GI bleed, back pain, seizure, CVA, palpatations, mental health, musculoskeletal)? @ -Differential Mental Health Depression, anxiety, bipolar, psychosis, schizophrenia, borderline personality, situational depression, adjustment disorder, behavioral disorder, brain tumor, malingering, substance abuse, encephalopathy, medication reaction, dementia, hypothyroidism, degenerative neurologic disorder, lupus.... This is not meant to be all-inclusive list EKG interpreted by me (3pts min.). @ -None X-rays interpreted by me (1pt min.). @ -None done CT interpreted by me (1pt min.). @ -None done U/S interpreted by me (1pt. min.). @ -None done What testing was considered but not performed or refused? (CT, X-rays, U/S, labs)? Why? @ -None What meds were considered but not given or refused? Why? @ -None Did you discuss the management of the patient with other professionals (professionals i.e. DrMadeleine, PA, ALUM MIXER, lab, RT, psych nurse, social security benefits interviewer, it account manager, teacher, escrow officer, case monitor)? Give summary @ -Patient evaluated EPS recommends inpatient treatment Was smoking cessation discussed for >3mins.? @ -No Was critical care preformed (if so, how long)? @ -No Were there social determinants of health that impacted care today? How? (Homelessness, low income, unemployed, alcoholism, drug addiction, transportation, low edu. Level, literacy, decrease access to med. care, longterm, rehab)? @ -No Was there de-escalation of care discussed even if they declined (Discuss DNR or withdrawal of care, Hospice)? DNR status @ -No What co-morbidities impacted this encounter? (DM, HTN, Smoking, COPD, CAD, Cancer, CVA, ARF, Chemo, Hep., AIDS, mental health diagnosis, sleep apnea, morbid obesity)? @ -None Was patient admitted / discharged? Hospital course, mention meds given and route, prescriptions, significant lab abnormalities, going to OR and other pertinent info. @ -Admitted to [facility]. Undiagnosed new problem with uncertain prognosis? @ -No Drug Therapy requiring intensive monitoring for toxicity (Heparin, Nitro, Insulin, Cardizem)? @ -No Were any procedures done? @ -No Diagnosis/symptom? @ -[Depression, anxiety Acute, or Chronic, or Acute on Chronic? @ -Acute Uncomplicated (without systemic symptoms) or Complicated (systemic symptoms)? @ -Uncomplicated Side effects of treatment? @ -[No Exacerbation, Progression, or Severe Exacerbation? @ -No Poses a threat to life or bodily function? How? (Chest pain, [place], [place], pneumonia, PE, COPD, DKA, ARF, appy, cholecystitis, CVA, Diverticulitis, Homicidal, Suicidal, threat to staff... and all critical care pts) @ -No - Lab Data Result diagrams: 01/12/24 07:30 01/12/24 07:30 Lab Results 01/11/24 01/11/24 01/11/24 Range/Units 17:36 17:36 19:06 Hep Bs Antigen Nonreactive (Nonreactive) Hep C IgG Ab Nonreactive (Nonreactive) HIV (1&2) Ag/Ab (Rapid) (Nonreactive) Influenza Type A (PCR) Not Detected (Not Detectd) Influenza Type B (PCR) Not Detected (Not Detectd) RSV (PCR) Not Detected (Not Detectd) SARS-CoV-2 (PCR) Not Detected (Not Detectd) Disposition Clinical Impression: Depression, Anxiety Disposition: TRANSFER TO PSYCH HOSP/UNIT
[2024-01-11] MEDS ORDERED: LORazepam 2 MG/ML INJ IM PRN (21:03)
[2024-01-11] MEDS ORDERED: MAG HYDROX/AL HYDROX/SIMETH 355 ML BOTTLE PO PRN (21:03)
[2024-01-11] MEDS ORDERED: traZODone HCL 50 MG TAB PO PRN (21:03)
[2024-01-11] MEDS ORDERED: IBUPROFEN 600 MG TAB PO PRN (21:03)
[2024-01-11] MEDS ORDERED: MAGNESIUM HYDROXIDE 2,400 MG/30 ML CUP PO PRN (21:03)
[2024-01-11] MEDS ORDERED: HALOPERIDOL LACTATE 5 MG/ML 1 ML VIAL IM PRN (21:03)
[2024-01-11] MEDS ORDERED: ACETAMINOPHEN TAB 325 MG TAB PO PRN (21:03)
[2024-01-11] MEDS ORDERED: haloperidoL 5 MG TAB PO PRN (21:03)
[2024-01-11] MEDS: hydrOXYzine HCL 25 MG TAB PO STA (21:53)
[2024-01-11] MEDS: LORazepam 1 MG TAB PO PRN (22:57)
[2024-01-11 23:07] LABS: Hepatitis B Surface Antigen Nonreactive (Nonreactive); Hepatitis C IgG Antibody Nonreactive (Nonreactive)
[2024-01-11 23:27] VITALS: RESP 16
--- NOTE | 2024-01-12 02:54 | P.PN ---
Progress Note - Text Progress Note Date: 01/12/24 Attempted to see the patient in the mental health unit. The patient refused to be seen or be evaluated.
[2024-01-12 07:59] LABS: Basophils # (A) 0.1 k/uL (0-0.2); Basophils % (A) 1 %; Eosinophils # (A) 0.1 k/uL (0-0.7); Eosinophils % (A) 1 %; HCT 43.3 % (34.0-46.0); HGB 13.8 gm/dL (11.4-16.0); Lymphocytes # (A) 3.3 k/uL (1.0-4.8); Lymphocytes % (A) 44 %; MCH 29.4 pg (25.0-35.0); MCHC 31.9 g/dL (31.0-37.0); Mean Platelet Volume 7.4; Monocytes # (A) 0.4 k/uL (0-1.0); Monocytes % (A) 5 %; Neutrophils # (A) 3.5 k/uL (1.3-7.7); Neutrophils % (A) 47 %; Platelet Count 282 k/uL (150-450); RBC 4.71 m/uL (3.80-5.40); RDW 13.4 % (11.5-15.5); WBC 7.5 k/uL (3.8-10.6)
[2024-01-12 08:15] LABS: ALT 25 U/L (4-34); AST 22 U/L (14-36); African American GFR (CKD) >90 (>60 ml/min/1.73 sqM); Alkaline Phosphatase 71 U/L (38-126); Anion Gap 7 mmol/L; Bilirubin,Unconjugated 0.5 mg/dL (0.0-1.1); Blood Urea Nitrogen 15 mg/dL (7-17); Calcium 9.1 mg/dL (8.4-10.2); Carbon Dioxide 24 mmol/L (22-30); Chloride 109 mmol/L (98-107); Glucose 88 mg/dL (74-99); Non-African American GFR(CKD) 82 (>60 ml/min/1.73 sqM); Potassium 4.3 mmol/L (3.5-5.1); Sodium 140 mmol/L (137-145); Total Bilirubin 0.5 mg/dL (0.2-1.3); Total Protein 6.7 g/dL (6.3-8.2)
[2024-01-12] MEDS: NICOTINE 14MG/24HR PATCH TRANSDERM SCH (09:17)
[2024-01-12] MEDS: hydrOXYzine pamoate 25 MG CAP PO PRN (12:00)
[2024-01-12] MEDS: FLUoxetine HCL 20 MG CAP PO SCH (12:00)
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
[2024-01-12 16:09] LABS: Chol/HDL Ratio 4.82 Ratio; LDL Cholesterol,Calculated 126.8 mg/dL (0.0-131.0)
[2024-01-12] MEDS: traZODone HCL 50 MG TAB PO SCH (20:14)
[2024-01-13 07:12] VITALS: BP 129/88; PULSE 67; TEMP 97.1
--- NOTE | 2024-01-13 10:21 | P.PN ---
Progress Note - Text Progress Note Date: 01/13/24 Interval History: Patient was seen today for psychiatric follow up. She claims that she is doing a bit better today with guards to her mood and anxiety. We spoke about having a goal of increasing her Prozac which she is okay with. She remains fairly focused on discharge, minimizing need for being in the hospital. States that she slept fairly last night. Not reporting any side effects from medications, has been going to some groups. She denies any suicidal homicidal ideations intent or plan, denying any auditory or visual hallucinations. MENTAL STATUS EXAM: General Appearance: Patient appears to be overweight, stated age is alert, directable, and attempts to cooperate. Patient appears to have fair hygiene and grooming. Behavior: Patient is seated without any agitated behavior. Attempts to cooperate, fairly anxious, improving mildly Speech: Patient's speech is fluent and nonpressured. Mood/Affect: Patient reports their mood is "a bit anxious", affect is congruent and anxious affect, improving mildly Suicidality/Homicidality: Patient denies having any homicidal ideation intent or plan. Denies any suicidal ideations intent or plan Perceptions: Patient denies any visual hallucinations and denies any auditory hallucinations Though content/process: There is no evidence of any delusional thought content and thought process is linear and goal-directed. Focused on her symptoms and high levels of anxiety Memory and concentration: AOX3, grossly intact for the purposes of this session. Judgment and insight: superficial/poor, improving mildly IMPRESSIONS: Suicidal ideation Major depressive disorder History of PTSD Likely OCD Cannabis use disorder Nicotine dependence PLAN: -Patient is admitted under voluntary status to MHU for stabilization of psychiatric symptoms and safety. Patient has signed adult voluntary form and medication consent and is placed in patient's chart. -Medications : Prozac 20 mg daily for mood/anxiety, will likely be increasing tomorrow if tolerated well, trazodone 50 mg nightly for insomnia/mood, Vistaril as needed for anxiety. -Ativan and Haldol PRN for agitation/aggression -NRT -nicotine patch -SW on board for discharge planning. Encourage patient to participate in groups to work on coping skills. hopeful for discharge in 2-3 days if patient is improving.
--- NOTE | 2024-01-14 10:55 | P.PN ---
Progress Note - Text Progress Note Date: 01/14/24 Interval History: Patient was seen today for psychiatric follow up. Patient states that she is going to groups, even helping other patients with issues. She appears to be calmer today, reports an improving mood and also anxiety today. We spoke about increasing the Prozac which she is okay with. We spoke about potential discharge tomorrow which she is okay with. States that she slept fairly last night. Not reporting any side effects from medications, has been going to some groups. She denies any suicidal homicidal ideations intent or plan, denying any auditory or visual hallucinations. MENTAL STATUS EXAM: General Appearance: Patient appears to be overweight, stated age is alert, directable, and attempts to cooperate. Patient appears to have fair hygiene and grooming. Behavior: Patient is seated without any agitated behavior. Attempts to cooperate Speech: Patient's speech is fluent and nonpressured. Mood/Affect: Patient reports their mood is "at her today", affect is congruent affect, improving mildly Suicidality/Homicidality: Patient denies having any homicidal ideation intent or plan. Denies any suicidal ideations intent or plan Perceptions: Patient denies any visual hallucinations and denies any auditory hallucinations Though content/process: There is no evidence of any delusional thought content and thought process is linear and goal-directed. Memory and concentration: AOX3, grossly intact for the purposes of this session. Judgment and insight: improving mildly IMPRESSIONS: Suicidal ideation Major depressive disorder History of PTSD r/o OCD Cannabis use disorder Nicotine dependence PLAN: -Patient is admitted under voluntary status to MHU for stabilization of psychiatric symptoms and safety. Patient has signed adult voluntary form and medication consent and is placed in patient's chart. -Medications : increase Prozac 40 mg daily for mood/anxiety, trazodone 50 mg nightly for insomnia/mood, Vistaril as needed for anxiety. -Ativan and Haldol PRN for agitation/aggression -NRT -nicotine patch -SW on board for discharge planning. Encourage patient to participate in groups to work on coping skills. hopeful for discharge tomorrow if patient is improving.
[2024-01-14] MEDS: FLUoxetine HCL 20 MG CAP PO SCH (11:18)
--- NOTE | 2024-01-15 01:37 | P.CONS ---
History of Present Illness - Reason for Consult Consult date: 01/15/24 - History of Present Illness The patient is a 28-year-old female with a PMH of anxiety and bipolar disorder who had presented to the emergency room with complaints of depression and suicidal ideation. The patient was admitted mental health unit where she was seen and evaluated while accompanied by mental health unit RN. The patient reports that she has been struggling with her OCD symptoms which prompted her to seek help. She had no active complaints at the time of interview. He does report smoking half pack of cigarettes daily and recreational marijuana use but denied any alcohol or additional substance use. Denied experiencing chest discomfort, shortness breath, fever, chills, cough, nausea, vomiting, abdominal pain, diarrhea. Review of systems: Pertinent positives and negatives as discussed in HPI, a complete review of systems was performed and all other systems are negative. Physical examination: General: non toxic, no distress, appears at stated age, morbidly obese Derm: no unusual rashes/lesions, no unusual ecchymoses, warm, dry Head: atraumatic, normocephalic, symmetric Eyes: EOMI, no lid lag, anicteric sclera ENT: Nose and ears atraumatic, no thrush, no pharyngeal erythema Neck: trachea midline, supple Mouth: no lip lesion, mucus membranes moist Cardiovascular: S1S2 reg, no murmur, no edema Lungs: CTA bilateral, no rhonchi, no rales , no accessory muscle use Abdominal: soft, nontender to palpation, no guarding Ext: no gross muscle atrophy, no contractures, Neuro: No gross focal neuro deficits noted Psych: Alert, oriented, appropriate affect Assessment: Marijuana and tobacco abuse OCD with a history of bipolar disorder Imaging: None performed Data Review: Reviewed with WBC count 7.5, hemoglobin 13.8, sodium 140, calcium 4.3, chloride 109, BUN 15, creatinine 0.96 Plan: Advised on importance of cessation of marijuana and tobacco use Defer management of OCD and bipolar disorder to primary psychiatry service Thank you for allowing us to participate in the care of this patient. We will follow peripherally. Do not hesitate to contact us with questions. Someone can be reached from the [facility] hospitalist group at all hours of the day at [phone]. Past Medical History Past Medical History: No Reported History Additional Past Medical History / Comment(s): pre-eclampsia, IBS History of Any Multi-Drug Resistant Organisms: None Reported Past Surgical History: Section, Cholecystectomy Past Psychological History: Anxiety, Bipolar, Depression, PTSD Smoking Status: Current every day smoker Past Alcohol Use History: None Reported Past Drug Use History: Marijuana - Past Family History Father Family Medical History: Hypertension Additional Family Medical History / Comment(s): INSOMNIA Medications and Allergies Home Medications Medication Instructions Recorded Confirmed Type ALPRAZolam [Xanax] 0.5 mg PO TID PRN 05/22/23 05/22/23 History Albuterol Sulfate [Albuterol 2 puff PO RT-Q6H PRN 05/22/23 05/22/23 History Sulfate Hfa] Cetirizine HCl [Zyrtec] 10 mg PO DAILY 05/22/23 05/22/23 History dexAMETHasone [Decadron] 1 mg PO BID 05/22/23 05/22/23 History lisinopriL [Zestril] 10 mg PO DAILY 05/22/23 05/22/23 History ALPRAZolam [Xanax] 0.5 mg PO BID PRN 3 Days #6 tablet 01/05/24 Rx hydrOXYzine HCL [Atarax] 50 mg PO Q6H PRN #15 tablet 01/06/24 Rx Allergies Allergy/AdvReac Type Severity Reaction Status Date / Time No Known Allergies Allergy Verified 01/11/24 15:45 Results CBC & Chem 7: 01/12/24 07:30 01/12/24 07:30
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
== END 2024-01-15 11:35 | disposition home or self-care (01) | DRG 881 ==
LOC: EC 14:24 → 3MHU 20:59
PROVIDERS: ADMIT Psychiatry & Neurology Psychiatry; ATTEND Psychiatry & Neurology Psychiatry
DX: F32.9 Major depressive disorder, single episode, unspecified (principal); R45.851 Suicidal ideations; F43.10 Post-traumatic stress disorder, unspecified; F41.0 Panic disorder [episodic paroxysmal anxiety]; F17.210 Nicotine dependence, cigarettes, uncomplicated; Z81.8 Family history of other mental and behavioral disorders; Z79.899 Other long term (current) drug therapy; Z91.51 Personal history of suicidal behavior
CPT/HCPCS: 36415; 80053; 80061; 82075; 82248; 83036; 84443; 85025; 86701; 86803; 87340; 87636; 99285

== ENCOUNTER 2024-04-03 14:33 | Observation (INO) | payer BC, OTHER ==
[2024-04-03] MEDS: LORazepam 2 MG/ML INJ IM STA (15:09)
[2024-04-03] MEDS: HYDROmorphone 1 MG/ML 1 ML SYRINGE IM STA (15:12)
[2024-04-03 15:38] LABS: Basophils % (A) 0 %; Eosinophils # (A) 0.1 k/uL (0-0.7); Eosinophils % (A) 1 %; HCT 41.9 % (34.0-46.0); HGB 14.3 gm/dL (11.4-16.0); Lymphocytes # (A) 3.1 k/uL (1.0-4.8); Lymphocytes % (A) 29 %; MCH 30.4 pg (25.0-35.0); MCHC 34.1 g/dL (31.0-37.0); Mean Platelet Volume 7.8; Monocytes # (A) 0.4 k/uL (0-1.0); Monocytes % (A) 4 %; Neutrophils # (A) 6.6 k/uL (1.3-7.7); Neutrophils % (A) 62 %; Platelet Count 340 k/uL (150-450); RBC 4.71 m/uL (3.80-5.40); WBC 10.6 k/uL (3.8-10.6)
[2024-04-03 15:52] LABS: ALT 33 U/L (4-34); AST 24 U/L (14-36); African American GFR (CKD) >90 (>60 ml/min/1.73 sqM); Albumin 4.5 g/dL (3.5-5.0); Alkaline Phosphatase 92 U/L (38-126); Anion Gap 14 mmol/L; Blood Urea Nitrogen 18 mg/dL (7-17); Calcium 9.6 mg/dL (8.4-10.2); Carbon Dioxide 19 mmol/L (22-30); Chloride 103 mmol/L (98-107); Glucose 89 mg/dL (74-99); Lipase 65 U/L (23-300); Non-African American GFR(CKD) >90 (>60 ml/min/1.73 sqM); Potassium 4.3 mmol/L (3.5-5.1); Sodium 136 mmol/L (137-145); Total Bilirubin 0.6 mg/dL (0.2-1.3); Total Protein 7.5 g/dL (6.3-8.2)
[2024-04-03] MEDS: HYDROmorphone 1 MG/ML 1 ML SYRINGE IVP STA (16:10)
--- NOTE | 2024-04-03 16:40 | US ---
EXAMINATION TYPE: US pelvis complete transvag DATE OF EXAM: 04/03/2024 COMPARISON: CT 2021 CLINICAL INDICATION: Female, 28 years old with history of right lower quadrant pain, known large ovar jonathan cys; Pain right side x 2 hours. Hx C section. Hx mirena IUD. TECHNIQUE: Transvaginal (TV) and Transabdominal (TA) . Transabdominal grayscale sonographic images of the pelvis were acquired. Transvaginal sonographic im ages were medically necessary to better assess the following anatomy: Ovaries/endometrium Doppler imaging: Not performed. FINDINGS: Date of LMP: Unknown EXAM MEASUREMENTS: Uterus: 8.1 x 3.2 x 3.7 cm Endometrial Stripe: Not seen Right Ovary: 9.4 x 6.5 x 6.1 cm Left Ovary: 3.1 x 2.4 x 2.5 cm 1. Uterus: Heterogeneous, very limited visibility. IUD seen. 2. Endometrium: Not seen 3. Right Ovary: Enlarged. *Large complex area seen: 8.2 x 6.0 x 5.4 cm. 4. Left Ovary: Follicles seen. Spectral, color and waveform doppler imaging shows arterial and venous flow within left ovary TA. L eft ovary not seen TV. Unable to see much color flow except for a minimal amount at periphery of right ovary. Unable to te ll with certainty if this is ovarian tissue where some flow is seen. Arterial and venous waveform see n at periphery. Patient is in great amount of pain* Question possible torsion 5. Bilateral Adnexa: Appear wnl 6. Posterior cul-de-sac: Appears wnl IMPRESSION: Large right adnexal probable ovarian cyst which has increased in size from 06/04/2021 . Right ovary is not well seen likely due to its displacement from the large cyst. Findings suspicious for torsion. C linical correlation and gynecologic workup recommended. Findings communicated to Sudha Pack DO on 04/03/2024 4:[address] Lewis Remy. [facility], , 04/03/2024 4:38 PM
[2024-04-03 16:47] LABS: Appearance,Urine Clear (Clear); Bilirubin,Urine Negative (Negative); Blood,Urine Trace (Negative); Color,Urine Colorless; Glucose,Urine (UA) Negative (Negative); Ketones,Urine Negative (Negative); Leukocyte Esterase,Urine Negative (Negative); Mucus,Urine Rare /hpf; Nitrite,Urine Negative (Negative); PH, Urine 5.5 (5.0-8.0); Protein,Urine Negative (Negative); RBC,Urine 2 /hpf (0-5); Specific Gravity,Urine 1.023 (1.001-1.035); Squamous Epithelial Cell,Urine <1 /hpf (0-4); Urobilinogen,Urine <2.0 mg/dL (<2.0); WBC,Urine 1 /hpf (0-5)
--- NOTE | 2024-04-03 17:00 | ED ---
Abdominal Pain HPI - General Chief Complaint: Abdominal Pain Stated Complaint: abd pain Time Seen by Provider: 04/03/24 14:40 Source: EMS Mode of arrival: EMS Limitations: no limitations - History of Present Illness Initial Comments: 28-year-old female presents to the emergency department with sudden onset right lower quadrant abdominal pain. Patient states that the pain started just prior to hospital arrival and she immediately called EMS as it was 10 out of 10 pain. Located in the right lower quadrant. She has a history of known ovarian cyst and follows with Dr. Figueroa for this. Patient was given 50 mics of fentanyl by EMS and states that it did not touch her pain. She denies hematuria or dysuria. She has an IUD and denies menstrual cycles. She does admit to small spotting this morning. Patient denies diarrhea, constipation, black or bloody stools. - Related Data Home Medications Medication Instructions Recorded Confirmed Prazosin HCl [Minipress] 2 mg PO HS 04/03/24 04/03/24 Sertraline [Zoloft] 100 mg PO DAILY 04/03/24 04/03/24 clonazePAM [KlonoPIN] 0.5 mg PO BID PRN 04/03/24 04/03/24 Previous Rx's Medication Instructions Recorded Ibuprofen [Motrin] 600 mg PO Q6HR PRN tab 01/15/24 Acetaminophen Tab [Tylenol] 650 mg PO Q6H PRN #30 tab 04/04/24 Docusate [Colace] 100 mg PO BID PRN #60 capsule 04/04/24 Ibuprofen [Motrin] 600 mg PO Q6HR PRN #30 tab 04/04/24 oxyCODONE HCL [Roxicodone] 5 mg PO Q6HR PRN 3 Days #12 tab 04/04/24 Allergies Allergy/AdvReac Type Severity Reaction Status Date / Time No Known Allergies Allergy Verified 04/03/24 18:18 Review of Systems ROS Statement: Those systems with pertinent positive or pertinent negative responses have been documented in the HPI. ROS Other: All systems not noted in ROS Statement are negative. Past Medical History Past Medical History: No Reported History Additional Past Medical History / Comment(s): pre-eclampsia, IBS History of Any Multi-Drug Resistant Organisms: None Reported Past Surgical History: Section, Cholecystectomy Past Psychological History: Anxiety, Bipolar, Depression, PTSD Smoking Status: Current every day smoker Past Alcohol Use History: None Reported Past Drug Use History: Marijuana - Past Family History Father Family Medical History: Hypertension Additional Family Medical History / Comment(s): INSOMNIA General Exam Limitations: no limitations General appearance: alert, in distress Head exam: Present: atraumatic, normocephalic, normal inspection Eye exam: Present: normal appearance, PERRL, EOMI. Absent: scleral icterus, conjunctival injection, periorbital swelling ENT exam: Present: normal exam, mucous membranes moist Neck exam: Present: normal inspection. Absent: tenderness, meningismus, lymphadenopathy Respiratory exam: Present: normal lung sounds bilaterally. Absent: respiratory distress, wheezes, rales, rhonchi, stridor Cardiovascular Exam: Present: regular rate, normal rhythm, normal heart sounds. Absent: systolic murmur, diastolic murmur, rubs, gallop, clicks GI/Abdominal exam: Present: tenderness, guarding (rlq) Neurological exam: Present: alert Psychiatric exam: Present: anxious Course Vital Signs 04/03/24 04/03/24 14:38 17:09 Temperature 98.7 F Pulse Rate 89 78 Respiratory 22 18 Rate Blood Pressure 149/98 149/79 O2 Sat by Pulse 100 98 Oximetry - Reevaluation(s) Reevaluation #1: 04/03/24 16:55 Dr. Rutledge aware of patient - will come to see patient Medical Decision Making - Medical Decision Making Was pt. sent in by a medical professional or institution (, PA, STORE RECEIVING CLERK, urgent care, hospital, or prison...) When possible be specific @ -No Did you speak to anyone other than the patient for history (EMS, parent, family, police, friend...)? What history was obtained from this source @ -Spoke with friend at bedside Did you review nursing and triage notes (agree or disagree)? Why? @ -I reviewed and agree with nursing and triage notes Were old charts reviewed (outside hosp., previous admission, EMS record, old EKG, old radiological studies, urgent care reports/EKG's, prison records)? Report findings @ -No old charts were reviewed Differential Diagnosis (chest pain, altered mental status, abdominal pain women, abdominal pain men, vaginal bleeding, weakness, fever, dyspnea, syncope, headache, dizziness, GI bleed, back pain, seizure, CVA, palpatations, mental health, musculoskeletal)? @ -Differential Abdominal Pain Women: Appendicitis, Cholecystitis, diverticulosis, ischemic bowel, pancreatitis, hepatitis, UTI, gastroenteritis, AAA, incarcerated hernia, bowel obstruction, constipation, inflammatory bowel, hepatitis, peptic ulcer disease, splenic infarction, perforated viscus, vulvitis, ovarian torsion, PID, kidney stone, placenta abruption, this is not meant to be an all-inclusive list EKG interpreted by me (3pts min.). @ -Not done X-rays interpreted by me (1pt min.). @ -None done CT interpreted by me (1pt min.). @ -None done U/S interpreted by me (1pt. min.). @ -Yes which demonstrates a large right-sided ovarian cyst with no definite color-flow What testing was considered but not performed or refused? (CT, X-rays, U/S, labs)? Why? @ -None What meds were considered but not given or refused? Why? @ -None Did you discuss the management of the patient with other professionals (professionals i.e. , PA, STORE RECEIVING CLERK, lab, RT, psych nurse, executive secretary social welfare, machine shop supervisor, teacher, postal sorting officer, leather case finisher)? Give summary @ -Spoke with Dr. Suarez. Aware of diagnosis of possible testicular torsion. Asks that patient be admitted to observation and she will be in shortly to see the patient Was smoking cessation discussed for >3mins.? @ -No Was critical care preformed (if so, how long)? @ -Yes, 35 minutes for evaluation, diagnosis of ovarian torsion with immediate surgical consult Were there social determinants of health that impacted care today? How? (Homelessness, low income, unemployed, alcoholism, drug addiction, transportation, low edu. Level, literacy, decrease access to med. care, longterm, rehab)? @ -No Was there de-escalation of care discussed even if they declined (Discuss DNR or withdrawal of care, Hospice)? DNR status @ -No What co-morbidities impacted this encounter? (DM, HTN, Smoking, COPD, CAD, Cancer, CVA, ARF, Chemo, Hep., AIDS, mental health diagnosis, sleep apnea, morbid obesity)? @ -obesity Was patient admitted / discharged? Hospital course, mention meds given and route, prescriptions, significant lab abnormalities, going to OR and other pertinent info. @ -Upon arrival patient seen and evaluated in room 22. Patient is hysterical. IV is difficult to obtain and therefore she was given 1 mg of IM Dilaudid and 1 mg of IM Ativan. At this point an IV is able to be established and patient was given additional pain medications as she still describes 10 out of 10 pain. Laboratory studies are conducted. Ultrasound is performed. I am called by the radiologist to see that there is no identifiable flow to the right ovary. I then immediately called Dr. Suarez. She requested the patient be admitted to observation status and she will be in to evaluate the patient herself. Patient is kept n.p.o. She is admitted to the floor. Dr. Suarez does evaluate the patient and it is decided that she will take the patient to the OR. Undiagnosed new problem with uncertain prognosis? @ -No Drug Therapy requiring intensive monitoring for toxicity (Heparin, Nitro, Insulin, Cardizem)? @ -No Were any procedures done? @ -No Diagnosis/symptom? @ -acute rlq pain, suspected ovarian torsion, large ovarian cyst Acute, or Chronic, or Acute on Chronic? @ -acute Uncomplicated (without systemic symptoms) or Complicated (systemic symptoms)? @ -complicated Side effects of treatment? @ -No Exacerbation, Progression, or Severe Exacerbation? @ -No Poses a threat to life or bodily function? How? (Chest pain, [place], [place], pneumonia, PE, COPD, DKA, ARF, appy, cholecystitis, CVA, Diverticulitis, Homicidal, Suicidal, threat to staff... and all critical care pts) @ -Yes as patient has suspected diagnosis of ovarian torsion - Lab Data Result diagrams: 04/04/24 08:26 04/04/24 08:26 Lab Results 04/03/24 04/03/24 04/03/24 Range/Units 15:17 15:17 15:17 WBC 10.6 (3.8-10.6) k/uL RBC 4.71 (3.80-5.40) m/uL Hgb 14.3 (11.4-16.0) gm/dL Hct 41.9 (34.0-46.0) % MCV 89.0 (80.0-100.0) fL MCH 30.4 (25.0-35.0) pg MCHC 34.1 (31.0-37.0) g/dL RDW 14.0 (11.5-15.5) % Plt Count 340 (150-450) k/uL MPV 7.8 Neutrophils % 62 % Lymphocytes % 29 % Monocytes % 4 % Eosinophils % 1 % Basophils % 0 % Neutrophils # 6.6 (1.3-7.7) k/uL Lymphocytes # 3.1 (1.0-4.8) k/uL Monocytes # 0.4 (0-1.0) k/uL Eosinophils # 0.1 (0-0.7) k/uL Basophils # 0.0 (0-0.2) k/uL Sodium 136 L (137-145) mmol/L Potassium 4.3 (3.5-5.1) mmol/L Chloride 103 (98-107) mmol/L Carbon Dioxide 19 L (22-30) mmol/L Anion Gap 14 mmol/L BUN 18 H (7-17) mg/dL Creatinine 0.77 (0.52-1.04) mg/dL Est GFR (CKD-EPI)AfAm >90 (>60 ml/min/1.73 sqM) Est GFR (CKD-EPI)NonAf >90 (>60 ml/min/1.73 sqM) Glucose 89 (74-99) mg/dL Plasma Lactic Acid Escobar 1.3 (0.7-2.0) mmol/L Calcium 9.6 (8.4-10.2) mg/dL Total Bilirubin 0.6 (0.2-1.3) mg/dL AST 24 (14-36) U/L ALT 33 (4-34) U/L Alkaline Phosphatase 92 (38-126) U/L Total Protein 7.5 (6.3-8.2) g/dL Albumin 4.5 (3.5-5.0) g/dL Lipase 65 (23-300) U/L Urine Color Urine Appearance (Clear) Urine pH (5.0-8.0) Ur Specific [place] (1.001-1.035) Urine Protein (Negative) Urine Glucose (UA) (Negative) Urine Ketones (Negative) Urine Blood (Negative) Urine Nitrite (Negative) Urine Bilirubin (Negative) Urine Urobilinogen (<2.0) mg/dL Ur Leukocyte Esterase (Negative) Urine RBC (0-5) /hpf Urine WBC (0-5) /hpf Ur Squamous Epith Cells (0-4) /hpf Urine Mucus (None) /hpf Urine HCG, Qual (Not Detectd) 04/03/24 04/03/24 Range/Units 16:13 16:13 WBC (3.8-10.6) k/uL RBC (3.80-5.40) m/uL Hgb (11.4-16.0) gm/dL Hct (34.0-46.0) % MCV (80.0-100.0) fL MCH (25.0-35.0) pg MCHC (31.0-37.0) g/dL RDW (11.5-15.5) % Plt Count (150-450) k/uL MPV Neutrophils % % Lymphocytes % % Monocytes % % Eosinophils % % Basophils % % Neutrophils # (1.3-7.7) k/uL Lymphocytes # (1.0-4.8) k/uL Monocytes # (0-1.0) k/uL Eosinophils # (0-0.7) k/uL Basophils # (0-0.2) k/uL Sodium (137-145) mmol/L Potassium (3.5-5.1) mmol/L Chloride (98-107) mmol/L Carbon Dioxide (22-30) mmol/L Anion Gap mmol/L BUN (7-17) mg/dL Creatinine (0.52-1.04) mg/dL Est GFR (CKD-EPI)AfAm (>60 ml/min/1.73 sqM) Est GFR (CKD-EPI)NonAf (>60 ml/min/1.73 sqM) Glucose (74-99) mg/dL Plasma Lactic Acid [place] (0.7-2.0) mmol/L Calcium (8.4-10.2) mg/dL Total Bilirubin (0.2-1.3) mg/dL AST (14-36) U/L ALT (4-34) U/L Alkaline Phosphatase (38-126) U/L Total Protein (6.3-8.2) g/dL Albumin (3.5-5.0) g/dL Lipase (23-300) U/L Urine Color Colorless Urine Appearance Clear (Clear) Urine pH 5.5 (5.0-8.0) Ur Specific [place] 1.023 (1.001-1.035) Urine Protein Negative (Negative) Urine Glucose (UA) Negative (Negative) Urine Ketones Negative (Negative) Urine Blood Trace H (Negative) Urine Nitrite Negative (Negative) Urine Bilirubin Negative (Negative) Urine Urobilinogen <2.0 (<2.0) mg/dL Ur Leukocyte Esterase Negative (Negative) Urine RBC 2 (0-5) /hpf Urine WBC 1 (0-5) /hpf Ur Squamous Epith Cells <1 (0-4) /hpf Urine Mucus Rare H (None) /hpf Urine HCG, Qual Not Detected (Not Detectd) Disposition Clinical Impression: RLQ abdominal pain, Ovarian torsion Disposition: ADMITTED IP TO THIS [facility] Condition: Serious Is patient prescribed a controlled substance at d/c from ED?: No Time of Disposition: 17:00 Decision to Admit Reason: Admit from EC Decision Date: 04/03/24 Decision Time: 17:00
[2024-04-03] MEDS ORDERED: ONDANSETRON 4 MG/2 ML VIAL IVP PRN (17:01)
[2024-04-03] MEDS ORDERED: NALOXONE 0.4 MG/ML 1 ML VIAL IV PRN (17:01)
[2024-04-03] MEDS ORDERED: HYDROmorphone 1 MG/ML 1 ML SYRINGE IVP PRN (17:01)
--- NOTE | 2024-04-03 17:58 | P.HPIHPCON ---
History of Present Illness H&P Date: 04/03/24 Chief Complaint: Right lower quadrant pain Ms. Ellington is a 28 year old who presents to the ER with 3-4 hours of acute right lower quadrant pain. She has a known enlarging right ovarian cyst that she has been under surveillance with Dr. Figueroa for. She has had serum tumor markers checked due to the enlarging nature of the cyst over the past few years and these were low risk for malignancy, per the patient. She is scheduled for bilateral oophorectomy in May because of the known large cyst on the right ovary and recurrent cysts that she has had on the left. She denies fevers, chills, nausea, or vomiting. The patient last ate yesterday. Pelvic US today shows an 8 centimeter complex right ovarian cyst with no doppler flow seen, suspicious for ovarian torsion. CBC, CMP, UA are unremarkable. Obstetric history: 1 FTCS Surgical history: , laparoscopic cholecystectomy Past medical history: PTSD, bipolar disorder, anxiety, depression, asthma Consent for Procedure: I have explained the operation/procedure to the patient, including the risks, benefits, side effects, alternative therapies (including not receiving the proposed treatment or service), the likelihood of the patient achieving his/her goals, and potential recuperation problems for the procedure/sedation/analgesia, as well as any blood products, if indicated. I also explained to the patient the risks, benefits and side effects of the alternatives, as well as the risks related to not receiving the proposed procedure, care, treatment, or services. Past Medical History Past Medical History: No Reported History Additional Past Medical History / Comment(s): pre-eclampsia, IBS History of Any Multi-Drug Resistant Organisms: None Reported Past Surgical History: Section, Cholecystectomy Past Psychological History: Anxiety, Bipolar, Depression, PTSD Smoking Status: Current every day smoker Past Alcohol Use History: None Reported Past Drug Use History: Marijuana - Past Family History Father Family Medical History: Hypertension Additional Family Medical History / Comment(s): INSOMNIA Medications and Allergies Home Medications Medication Instructions Recorded Confirmed Type Ibuprofen [Motrin] 600 mg PO Q6HR PRN tab 01/15/24 04/03/24 Rx Prazosin HCl [Minipress] 2 mg PO HS 04/03/24 04/03/24 History Sertraline [Zoloft] 100 mg PO DAILY 04/03/24 04/03/24 History clonazePAM [KlonoPIN] 0.5 mg PO BID PRN 04/03/24 04/03/24 History Allergies Allergy/AdvReac Type Severity Reaction Status Date / Time No Known Allergies Allergy Verified 01/11/24 15:45 Surgical - Exam Vital Signs Temp Pulse Resp BP Pulse Ox 98.7 F 89 22 149/98 100 04/03/24 14:38 04/03/24 14:38 04/03/24 14:38 04/03/24 14:38 04/03/24 14:38 - General moderate distress, obese - Abdomen Abdomen: tender, guarding, no rebound, no distended - Psychiatric oriented to time, oriented to person, oriented to place, speech is normal, memory intact Results - Labs 04/03/24 15:17 04/03/24 15:17 Abnormal Lab Results - Last 24 Hours (Table) 04/03/24 04/03/24 Range/Units 15:17 16:13 Sodium 136 L (137-145) mmol/L Carbon Dioxide 19 L (22-30) mmol/L BUN 18 H (7-17) mg/dL Urine Blood Trace H (Negative) Urine Mucus Rare H (None) /hpf Diabetes panel 04/03/24 Range/Units 15:17 Sodium 136 L (137-145) mmol/L Potassium 4.3 (3.5-5.1) mmol/L Chloride 103 (98-107) mmol/L Carbon Dioxide 19 L (22-30) mmol/L BUN 18 H (7-17) mg/dL Creatinine 0.77 (0.52-1.04) mg/dL Glucose 89 (74-99) mg/dL Calcium 9.6 (8.4-10.2) mg/dL AST 24 (14-36) U/L ALT 33 (4-34) U/L Alkaline Phosphatase 92 (38-126) U/L Total Protein 7.5 (6.3-8.2) g/dL Albumin 4.5 (3.5-5.0) g/dL Calcium panel 04/03/24 Range/Units 15:17 Calcium 9.6 (8.4-10.2) mg/dL Albumin 4.5 (3.5-5.0) g/dL Pituitary panel 04/03/24 Range/Units 15:17 Sodium 136 L (137-145) mmol/L Potassium 4.3 (3.5-5.1) mmol/L Chloride 103 (98-107) mmol/L Carbon Dioxide 19 L (22-30) mmol/L BUN 18 H (7-17) mg/dL Creatinine 0.77 (0.52-1.04) mg/dL Glucose 89 (74-99) mg/dL Calcium 9.6 (8.4-10.2) mg/dL Adrenal panel 04/03/24 Range/Units 15:17 Sodium 136 L (137-145) mmol/L Potassium 4.3 (3.5-5.1) mmol/L Chloride 103 (98-107) mmol/L Carbon Dioxide 19 L (22-30) mmol/L BUN 18 H (7-17) mg/dL Creatinine 0.77 (0.52-1.04) mg/dL Glucose 89 (74-99) mg/dL Calcium 9.6 (8.4-10.2) mg/dL Total Bilirubin 0.6 (0.2-1.3) mg/dL AST 24 (14-36) U/L ALT 33 (4-34) U/L Alkaline Phosphatase 92 (38-126) U/L Total Protein 7.5 (6.3-8.2) g/dL Albumin 4.5 (3.5-5.0) g/dL Assessment and Plan Assessment: 28 year old with right lower quadrant pain and 8 centimeter right ovarian mass suspicious for right ovarian torsion Plan: Admit, NPO, will go to OR for laparoscopic right oophorectomy, possible laparo liz
[2024-04-03] MEDS: IV FLUID CONTINUATION 800 ML IV ONE (18:45)
[2024-04-03] MEDS ORDERED: LIDOCAINE 1% INJ 10MG/ML (20 ML MDV) ONE (18:50)
[2024-04-03] MEDS ORDERED: DEXAMETHASONE SOD PHOSPHATE 4 MG/ML 1 ML VIAL ONE (18:50)
[2024-04-03] MEDS ORDERED: PROPOFOL 10 MG/ML 20 ML VIAL IV ONE (18:50)
[2024-04-03] MEDS ORDERED: ONDANSETRON 4 MG/2 ML VIAL ONE (18:50)
[2024-04-03] MEDS ORDERED: ROCURONIUM 10 MG/ML (5 ML VIAL) IV ONE (18:50)
[2024-04-03] MEDS ORDERED: GLYCOPYRROLATE 0.2 MG/ML 2 ML VIAL ONE (18:50)
[2024-04-03] MEDS ORDERED: SUCCINYLCHOLINE CHLORIDE 200 MG/10 ML VIAL IV ONE (18:50)
[2024-04-03] MEDS ORDERED: MIDAZOLAM 2 MG/2 ML VIAL ONE (18:50)
[2024-04-03] MEDS ORDERED: fentaNYL (PF) 50 MCG/ML 2 ML AMP ONE (18:50)
[2024-04-03] MEDS ORDERED: KETOROLAC 15 MG/ML 1 ML VIAL ONE (18:50)
[2024-04-03] MEDS ORDERED: NEOSTIGMINE 1 MG/ML 10 ML VIAL ONE (18:50)
[2024-04-03] MEDS ORDERED: KETAMINE HCL IN 0.9 % NACL 50 MG/5 ML SYRINGE ONE (18:50)
[2024-04-03] MEDS: BUPIVACAINE (PF) 0.25% 30 ML VIAL SQ ONE ×2 (19:27→20:18)
[2024-04-03] MEDS: IV FLUID CONTINUATION 1,000 ML IV ONE (19:29)
[2024-04-03] MEDS ORDERED: SIMETHICONE 80 MG CHEWABLE PO PRN (20:37)
--- NOTE | 2024-04-03 20:37 | P.OP ---
Date of Procedure: 04/03/24 Preoperative Diagnosis: 1. Acute right lower quadrant pain 2. Suspected right ovarian torsion 3. Large complex right ovarian mass Postoperative Diagnosis: 1. Acute right lower quadrant pain 2. Right ovarian torsion 3. Large 8+ centimeter right ovarian cyst 4. Abdominal wall adhesions Procedure(s) Performed: Laparoscopic Right Salpingo-ophorectomy, Lysis of Adhesions (15 minutes) Implants: None Anesthesia: JOSE ALFREDOA Surgeon: Sophia Rutledge Estimated Blood Loss (ml): 5 IV fluids (ml): 1,200 Urine output (ml): 100 Pathology: other (right ovary, ovarian cyst, and right fallopian tube) Condition: stable Disposition: floor Indications for Procedure: Ms. Smith is a 28 year old who presents with acute right lower quadrant pain in the context of a known large right ovarian cyst. Pelvic US was suspicious for ovarian torsion. Given the size of the mass, Laparoscopic Right Oophorectomy was recommended to the patient. Risks, benefits, and alternatives to Laparosocpic Right Oophorectomy were discussed with the patient including risk of bleeding, infection, damage to surrounding structures, and laparotomy. The patient understands these risks and desires to proceed with surgery as discu ssed. Operative Findings: Moderate amount of omental adhesions to the anterior abdominal wall. Large simple-appearing right ovarian mass 8+ centimeters twisted 3 times around the fallopian tube and IP ligament. Otherwise, normal appearing uterus, left fallopian tube, and left ovary. Description of Procedure: Patient was taken to the OR with IV fluid running and pneumatic compression stockings on both legs. General anesthesia was obtained without difficulty. The patient was placed in the dorsal lithotomy position with Adelso-type stirrups with knees bent at 30 degree angles. Examination under anesthesia revealed a normal-sized, anteverted uterus. The patient as prepared and draped. The bladder was emptied. A speculum was placed into the vagina. The anterior lip of the cervix was grasped with a single-toothed tenaculum. A uterine manipulator was introduced. A horizontal skin incision was made at the umbilical fold. The periumbilical skin was manually elevated. The Veress needle was introduced into the peritoneal cavity at a straight angle without difficulty. A saline drop test was performed to validate intraperitoneal placement. The pneumoperitoneum was established with CO2 gas to a pressure of 15mmHg. A 5mm trocar was inserted into the abdomen under direct laparoscopic visualization. Intraabdominal survey revealed lack of any visceral or vascular injury. The pelvic and abdominal anatomy was noted as above. Two additional laparoscopic assit ports were placed in the right and left lower quadrants. The Ligasure device was used to perform lysis of adhesions on the omental adhesions to anterior abdominal wall to improve visualization. Attention was then turned to the right ovary and fallopian tube, which was sequentially cauterized and cut to ligate the IP ligament and remove the fallopian tube to the level of the uterine cornua. The 5mm trocar in the left lower quadrant was replaced with a 10mm trocar to accomodate the endocatch bag. The specimen was then placed in an endocatch bag. The cyst was drained and removed from the left lower quadrant trocar site. The fascia at the 10mm trocar site was closed with 0-Vicryl in a running fashion. Excellent hemostasis was noted at the end of the case. The skin incisions were closed with 4-0 Vicryl. The patient tolerated the procedure well. All instruments were removed from the abdomen and vagina, and all counts were correct times two. The patient was taken to the recovery room in stable condition.
[2024-04-03] MEDS ORDERED: diphenhydrAMINE 25 MG CAP PO PRN (22:10)
[2024-04-03] MEDS ORDERED: diphenhydrAMINE 50 MG/ML 1 ML VIAL IVP PRN (22:10)
[2024-04-03] MEDS ORDERED: diphenhydrAMINE 50 MG CAP PO PRN (22:10)
[2024-04-03] MEDS: ACETAMINOPHEN IV (For NPO) 1,000 MG in EMPTY BAG 1 BAG IVPB PRN (22:17)
[2024-04-03] MEDS: SODIUM CHLORIDE 0.9% 1,000 ML IV SCH (22:18)
[2024-04-03] MEDS: METOCLOPRAMIDE 5 MG/ML 2 ML VIAL IVP PRN (22:27)
[2024-04-03] MEDS: diphenhydrAMINE 50 MG/ML 1 ML VIAL IVP PRN (23:33)
[2024-04-04] MEDS: ACETAMINOPHEN TAB 500 MG TAB PO SCH (00:22)
[2024-04-04] MEDS: KETOROLAC 15 MG/ML 1 ML VIAL IVP PRN (02:02)
[2024-04-04 08:55] LABS: African American GFR (CKD) >90 (>60 ml/min/1.73 sqM); Anion Gap 8 mmol/L; Blood Urea Nitrogen 16 mg/dL (7-17); Calcium 8.9 mg/dL (8.4-10.2); Carbon Dioxide 23 mmol/L (22-30); Chloride 105 mmol/L (98-107); Glucose 105 mg/dL (74-99); Non-African American GFR(CKD) >90 (>60 ml/min/1.73 sqM); Potassium 4.6 mmol/L (3.5-5.1); Sodium 136 mmol/L (137-145)
[2024-04-04 09:02] VITALS: BP 128/75; PULSE 99; RESP 16; TEMP 98.4
[2024-04-04 09:08] LABS: Basophils % (A) 0 %; Eosinophils % (A) 0 %; HCT 41.7 % (34.0-46.0); HGB 13.5 gm/dL (11.4-16.0); Lymphocytes # (A) 1.1 k/uL (1.0-4.8); Lymphocytes % (A) 9 %; MCH 29.2 pg (25.0-35.0); MCHC 32.3 g/dL (31.0-37.0); MCV 90.3 fL (80.0-100.0); Mean Platelet Volume 7.7; Monocytes # (A) 0.5 k/uL (0-1.0); Monocytes % (A) 4 %; Neutrophils # (A) 10.8 k/uL (1.3-7.7); Neutrophils % (A) 86 %; Platelet Count 349 k/uL (150-450); RBC 4.61 m/uL (3.80-5.40); WBC 12.6 k/uL (3.8-10.6)
--- NOTE | 2024-04-04 11:10 | P.DS ---
Providers Date of admission: 04/03/24 17:01 Expected date of discharge: 04/04/24 Attending physician: Sophia Rutledge MD Primary care physician: Anthony Foss [facility] Course: Ms. Smith is a 28 year old POD#1 s/p Laparoscopic Right Salpingo- Oophorectomy for right ovarian torsion incorporating the fallopian tube. She is doing well this morning and desires discharge home today. She denies any fevers, chills, pain or swelling in the legs overnight. Her pain is well- controlled with medications. We reviewed postoperative restrictions including lifting restrictions of no heavier than 15 pounds until her 2-week postoperative appointment in the office. She is to call the office sooner with any developing fevers, chills, acute abdominal pain, or other concerns. All questions are answered. She will go home with a 3-day supply of oxycodone as needed for breakthrough pain as well as Motrin and Tylenol to be used in a scheduled fashion. Patient Condition at Discharge: Serious Plan - Discharge Summary New Discharge Prescriptions: New Acetaminophen Tab [Tylenol] 650 mg PO Q6H PRN #30 tab PRN Reason: Mild Pain (Scale 1 To 3) Docusate [Colace] 100 mg PO BID PRN #60 capsule PRN Reason: Constipation Ibuprofen [Motrin] 600 mg PO Q6HR PRN #30 tab PRN Reason: Mild Pain (Scale 1 To 3) oxyCODONE HCL [Roxicodone] 5 mg PO Q6HR PRN 3 Days #12 tab PRN Reason: Breakthrough Pain No Action Sertraline [Zoloft] 100 mg PO DAILY clonazePAM [KlonoPIN] 0.5 mg PO BID PRN PRN Reason: Anxiety Prazosin HCl [Minipress] 2 mg PO HS Ibuprofen [Motrin] 600 mg PO Q6HR PRN tab PRN Reason: Moderate Pain (Scale 4 To 6) Discharge Medication List Ibuprofen [Motrin] 600 mg PO Q6HR PRN tab 01/15/24 [Rx] Prazosin HCl [Minipress] 2 mg PO HS 04/03/24 [History] Sertraline [Zoloft] 100 mg PO DAILY 04/03/24 [History] clonazePAM [KlonoPIN] 0.5 mg PO BID PRN 04/03/24 [History] Acetaminophen Tab [Tylenol] 650 mg PO Q6H PRN #30 tab 04/04/24 [Rx] Docusate [Colace] 100 mg PO BID PRN #60 capsule 04/04/24 [Rx] Ibuprofen [Motrin] 600 mg PO Q6HR PRN #30 tab 04/04/24 [Rx] oxyCODONE HCL [Roxicodone] 5 mg PO Q6HR PRN 3 Days #12 tab 04/04/24 [Rx] Follow up Appointment(s)/Referral(s): Anthony Restrepo MD [Primary Care Provider] - 1-2 days Sophia Rutledge MD [STAFF PHYSICIAN] - 2 Weeks (post-op appointment) Activity/Diet/Wound Care/Special Instructions: Postoperative Instructions 1. No heavy lifting or straining (exercising) until after 6 week checkup. 2. Do not resume sexual relations for 6 weeks or longer if uncomfortable. 3. Keep abdominal incision clean and dry: You may wear a dressing if more comfortable. 4. Keep any areas repaired with stitches clean and dry. 5. Call the office, , within the next week to make appointment for your 2 week checkup 6. Report any of the following occurrences to the doctor promptly: a. Heavy, excessive bleeding b. Chills, fever c. Burning or frequency of urination d. Pain or redness around the incisions Discharge Disposition: HOME SELF-CARE
== END 2024-04-04 11:38 | disposition home or self-care (01) ==
LOC: EC 14:33 → 4FBP 17:01
PROVIDERS: ADMIT Obstetrics & Gynecology; ATTEND Obstetrics & Gynecology
DX: N83.511 Torsion of right ovary and ovarian pedicle (principal); N83.201 Unspecified ovarian cyst, right side; K66.0 Peritoneal adhesions (postprocedural) (postinfection); N85.4 Malposition of uterus; F31.9 Bipolar disorder, unspecified; F41.9 Anxiety disorder, unspecified; F43.10 Post-traumatic stress disorder, unspecified; F17.200 Nicotine dependence, unspecified, uncomplicated; Z79.899 Other long term (current) drug therapy; Z96.0 Presence of urogenital implants
CPT/HCPCS: 96372; 96374; 99291; 36415; 88305; 80053; 80048; 83605; 83690; 85025 ×2; 81001; 81025; 93975; 76856; 76830; 58661; G0378 ×2; J2250; J0330; J2060; J1200; J1100; J2710; J2765; J2405; J2003; J3010; J1171; J0131; J1885 ×2; J2704; J0665; J1596

== ENCOUNTER 2024-04-05 09:35 | Emergency (ER) | payer OTHER ==
[2024-04-05 09:51] VITALS: TEMP 98
[2024-04-05] MEDS: LORazepam 1 MG TAB PO STA (10:24)
[2024-04-05] MEDS: IBUPROFEN 600 MG TAB PO STA (10:25)
--- NOTE | 2024-04-05 10:34 | ED ---
Abdominal Pain HPI - General Chief Complaint: Abdominal Pain Stated Complaint: post op-pain,dizziness Time Seen by Provider: 04/05/24 10:30 Source: patient, family, RN notes reviewed Mode of arrival: ambulatory Limitations: no limitations - History of Present Illness Initial Comments: 28-year-old female presented the ER for evaluation of abdominal pain. Patient underwent right salpingo-oophorectomy on 04-03-[address] Rutledge. Patient was discharged yesterday with a prescription of oxycodone, ibuprofen, Tylenol. Family, bedside, state patient has very high anxiety over this and does not like the site of blood. Patient noticed blood on gauze from umbilical incision which concerned patient prompting ER visit. Patient also was endorsing lower abdominal pain. No fevers or chills. Patient denies any nausea, vomiting, urinary complaints, constipation/diarrhea or other complaints at this time. - Related Data Home Medications Medication Instructions Recorded Confirmed Prazosin HCl [Minipress] 2 mg PO HS 04/03/24 04/03/24 Sertraline [Zoloft] 100 mg PO DAILY 04/03/24 04/03/24 clonazePAM [KlonoPIN] 0.5 mg PO BID PRN 04/03/24 04/03/24 Previous Rx's Medication Instructions Recorded Ibuprofen [Motrin] 600 mg PO Q6HR PRN tab 01/15/24 Acetaminophen Tab [Tylenol] 650 mg PO Q6H PRN #30 tab 04/04/24 Docusate [Colace] 100 mg PO BID PRN #60 capsule 04/04/24 Ibuprofen [Motrin] 600 mg PO Q6HR PRN #30 tab 04/04/24 oxyCODONE HCL [Roxicodone] 5 mg PO Q6HR PRN 3 Days #12 tab 04/04/24 Allergies Allergy/AdvReac Type Severity Reaction Status Date / Time No Known Allergies Allergy Verified 04/03/24 18:18 Review of Systems ROS Statement: Those systems with pertinent positive or pertinent negative responses have been documented in the HPI. ROS Other: All systems not noted in ROS Statement are negative. Past Medical History Past Medical History: Asthma, Hypertension Additional Past Medical History / Comment(s): IBS History of Any Multi-Drug Resistant Organisms: None Reported Past Surgical History: Section, Cholecystectomy Past Anesthesia/Blood Transfusion Reactions: No Reported Reaction Past Psychological History: Anxiety, Depression, PTSD Smoking Status: Current every day smoker, Vaper Past Alcohol Use History: None Reported Past Drug Use History: Marijuana - Past Family History Father Family Medical History: Hypertension Additional Family Medical History / Comment(s): INSOMNIA General Exam Limitations: no limitations General appearance: alert, in no apparent distress, anxious (Hyperventilating and extremely tearful) Respiratory exam: Present: normal lung sounds bilaterally. Absent: respiratory distress, wheezes, rales, rhonchi, stridor Cardiovascular Exam: Present: regular rate, normal rhythm, normal heart sounds. Absent: systolic murmur, diastolic murmur, rubs, gallop, clicks GI/Abdominal exam: Present: soft, tenderness (Lower abdomen), normal bowel sounds Neurological exam: Present: alert, oriented X3, CN II-XII intact Psychiatric exam: Present: anxious Skin exam: Present: warm, dry, intact, normal color, other (2 laparoscopic surgical incisions to lower abdomen 1 laparoscopic incision to umbilicus. There is no surrounding erythema or purulent drainage present.). Absent: rash Course Vital Signs 04/05/24 04/05/24 09:49 14:09 Temperature 98 F Pulse Rate 92 98 Respiratory 20 18 Rate Blood Pressure 132/79 128/76 O2 Sat by Pulse 97 98 Oximetry - Reevaluation(s) Reevaluation #1: 04/05/24 10:[address] Rutledge. She agrees with plan of CT scan and b loodwork. Medical Decision Making - Medical Decision Making Was pt. sent in by a medical professional or institution (, PA, BASE BRANDER, urgent care, hospital, or alf...) When possible be specific @ -[No] Did you speak to anyone other than the patient for history (EMS, parent, family, police, friend...)? What history was obtained from this source @ -[No] Did you review nursing and triage notes (agree or disagree)? Why? @ -[I reviewed and agree with nursing and triage notes] Were old charts reviewed (outside hosp., previous admission, EMS record, old EKG, old radiological studies, urgent care reports/EKG's, alf records)? Report findings @ -[No old charts were reviewed] Differential Diagnosis (chest pain, altered mental status, abdominal pain women, abdominal pain men, vaginal bleeding, weakness, fever, dyspnea, syncope, headache, dizziness, GI bleed, back pain, seizure, CVA, palpatations, mental health, musculoskeletal)? @ -Differential Abdominal Pain Women:Appendicitis, Cholecystitis, diverticulosis, ischemic bowel, pancreatitis, hepatitis, UTI, gastroenteritis, AAA, incarcerated hernia, bowel obstruction, constipation, inflammatory bowel, hepatitis, peptic ulcer disease, splenic infarction, perforated viscus, vulvitis, ovarian torsion, PID, kidney stone, placenta abruption, this is not meant to be an all-inclusive list EKG interpreted by me (3pts min.). @ -None done X-rays interpreted by me (1pt min.). @ -[None done] CT interpreted by me (1pt min.). @ -[None done] U/S interpreted by me (1pt. min.). @ -[None done] What testing was considered but not performed or refused? (CT, X-rays, U/S, labs )? Why? @ -[None] What meds were considered but not given or refused? Why? @ -[None] Did you discuss the management of the patient with other professionals (professionals i.e. , PA, BASE BRANDER, lab, RT, psych nurse, social security assessor, director of operations, teacher, operations officer trust department, registered nurse hh case manager)? Give summary @ -[No] Was smoking cessation discussed for >3mins.? @ -[No] Was critical care preformed (if so, how long)? @ -[No] Were there social determinants of health that impacted care today? How? (Homelessness, low income, unemployed, alcoholism, drug addiction, transportation, low edu. Level, literacy, decrease access to med. care, half-way, rehab)? @ -[No] Was there de-escalation of care discussed even if they declined (Discuss DNR or withdrawal of care, Hospice)? DNR status @ -[No] What co-morbidities impacted this encounter? (DM, HTN, Smoking, COPD, CAD, Cancer, CVA, ARF, Chemo, Hep., AIDS, mental health diagnosis, sleep apnea, morbid obesity)? @ -[None] Was patient admitted / discharged? Hospital course, mention meds given and route, prescriptions, significant lab abnormalities, going to OR and other pertinent info. @ -[hospital course] Undiagnosed new problem with uncertain prognosis? @ -[No] Drug Therapy requiring intensive monitoring for toxicity (Heparin, Nitro, Insulin, Cardizem)? @ -[No] Were any procedures done? @ -[No] Diagnosis/symptom? @ -[default] Acute, or Chronic, or Acute on Chronic? @ -[default] Uncomplicated (without systemic symptoms) or Complicated (systemic symptoms)? @ -[default] Side effects of treatment? @ -[No] Exacerbation, Progression, or Severe Exacerbation? @ -[No] Poses a threat to life or bodily function? How? (Chest pain, [place], [place], pneumonia, PE, COPD, DKA, ARF, appy, cholecystitis, CVA, Diverticulitis, Homicidal, Suicidal, threat to staff... and all critical care pts) @ -[No] - Lab Data Result diagrams: 04/05/24 10:55 04/05/24 10:55 Lab Results 04/05/24 04/05/24 04/05/24 Range/Units 10:55 10:55 10:55 WBC 12.4 H (3.8-10.6) k/uL RBC 4.10 (3.80-5.40) m/uL Hgb 11.8 (11.4-16.0) gm/dL Hct 36.9 (34.0-46.0) % MCV 89.9 (80.0-100.0) fL MCH 28.9 (25.0-35.0) pg MCHC 32.1 (31.0-37.0) g/dL RDW 14.3 (11.5-15.5) % Plt Count 297 (150-450) k/uL MPV 7.3 Neutrophils % 59 % Lymphocytes % 34 % Monocytes % 4 % Eosinophils % 1 % Basophils % 0 % Neutrophils # 7.3 (1.3-7.7) k/uL Lymphocytes # 4.3 (1.0-4.8) k/uL Monocytes # 0.5 (0-1.0) k/uL Eosinophils # 0.1 (0-0.7) k/uL Basophils # 0.0 (0-0.2) k/uL Sodium 136 L (137-145) mmol/L Potassium 4.1 (3.5-5.1) mmol/L Chloride 109 H (98-107) mmol/L Carbon Dioxide 22 (22-30) mmol/L Anion Gap 5 mmol/L BUN 18 H (7-17) mg/dL Creatinine 0.76 (0.52-1.04) mg/dL Est GFR (CKD-EPI)AfAm >90 (>60 ml/min/1.73 sqM) Est GFR (CKD-EPI)NonAf >90 (>60 ml/min/1.73 sqM) Glucose 85 (74-99) mg/dL Plasma Lactic Acid Escobar 0.8 (0.7-2.0) mmol/L Calcium 9.0 (8.4-10.2) mg/dL Total Bilirubin 0.4 (0.2-1.3) mg/dL AST 20 (14-36) U/L ALT 28 (4-34) U/L Alkaline Phosphatase 73 (38-126) U/L Total Protein 6.3 (6.3-8.2) g/dL Albumin 3.7 (3.5-5.0) g/dL HCG, Quant <2.4 mIU/mL Disposition Clinical Impression: S/P right oophorectomy, Abdominal pain Disposition: HOME SELF-CARE Condition: Stable Instructions (If sedation given, give patient instructions): Abdominal Pain (ED) Additional Instructions: Follow-up closely with Dr. Rutledge outpatient. Take medications as prescribed. Return to the ER for any new or worsening concerns. Is patient prescribed a controlled substance at d/c from ED?: No Referrals: Anthony Restrepo MD [Primary Care Provider] - 1-2 days Time of Disposition: 15:07
[2024-04-05] MEDS: ONDANSETRON 4 MG/2 ML VIAL IVP STA (11:04)
[2024-04-05] MEDS: HYDROmorphone 0.5 MG/0.5 ML SYRINGE IVP STA ×2 (11:05→14:05)
[2024-04-05 11:18] LABS: Basophils % (A) 0 %; Eosinophils # (A) 0.1 k/uL (0-0.7); Eosinophils % (A) 1 %; HCT 36.9 % (34.0-46.0); HGB 11.8 gm/dL (11.4-16.0); Lymphocytes # (A) 4.3 k/uL (1.0-4.8); Lymphocytes % (A) 34 %; MCH 28.9 pg (25.0-35.0); MCHC 32.1 g/dL (31.0-37.0); MCV 89.9 fL (80.0-100.0); Mean Platelet Volume 7.3; Monocytes # (A) 0.5 k/uL (0-1.0); Monocytes % (A) 4 %; Neutrophils # (A) 7.3 k/uL (1.3-7.7); Neutrophils % (A) 59 %; Platelet Count 297 k/uL (150-450); RDW 14.3 % (11.5-15.5); WBC 12.4 k/uL (3.8-10.6)
[2024-04-05 11:32] LABS: ALT 28 U/L (4-34); AST 20 U/L (14-36); African American GFR (CKD) >90 (>60 ml/min/1.73 sqM); Albumin 3.7 g/dL (3.5-5.0); Alkaline Phosphatase 73 U/L (38-126); Anion Gap 5 mmol/L; Blood Urea Nitrogen 18 mg/dL (7-17); Carbon Dioxide 22 mmol/L (22-30); Chloride 109 mmol/L (98-107); Glucose 85 mg/dL (74-99); Non-African American GFR(CKD) >90 (>60 ml/min/1.73 sqM); Potassium 4.1 mmol/L (3.5-5.1); Sodium 136 mmol/L (137-145); Total Bilirubin 0.4 mg/dL (0.2-1.3); Total Protein 6.3 g/dL (6.3-8.2)
[2024-04-05 11:48] LABS: HCG,Quantitative Serum <2.4 mIU/mL
--- NOTE | 2024-04-05 13:33 | CT ---
EXAMINATION TYPE: CT abdomen pelvis w con CT DLP: 2300.7 mGycm, Automated exposure control for dose reduction was used. DATE OF EXAM: 04/05/2024 1:14 PM COMPARISON: Pelvic ultrasound 04/03/2024, CT abdomen and pelvis 06/04/2021, 01/11/2020 CLINICAL INDICATION:Female, 28 years old with history of abd pain s/p right ovarian torsion sx; ABDOM INAL PAIN, RECENT RT OVARIAN TORSION SX. TECHNIQUE: Standard CT of the abdomen and pelvis following the administration of 100 cc of Isovue 3 00 IV contrast material. Coronal and sagittal reformats were performed. FINDINGS: LOWER CHEST: Bilateral lower lobe linear atelectasis. ABDOMEN LIVER: Unremarkable GALLBLADDER AND BILE DUCTS: The gallbladder is surgically absent. No biliary ductal dilatation. PANCREAS: Unremarkable. SPLEEN: Unremarkable. ADRENAL GLANDS: Unremarkable. KIDNEYS AND URETERS: No evidence of hydronephrosis or renal calculus. The kidneys enhance symmetrical ly. Contrast is demonstrated within both collecting systems on the delayed phase. PELVIS BLADDER: Unremarkable REPRODUCTIVE: Anteverted appearance of the uterus with IUD in place. Post surgical changes from right oophorectomy. Trace stranding in this region and within the anterior pelvis. No organized fluid bhupinder ection. More anterior position of the left ovary compared to prior CT. ABDOMEN & PELVIS STOMACH AND BOWEL: Stomach and duodenum are unremarkable. The appendix is within normal limits. No ev idence of bowel obstruction. PERITONEUM: No evidence of pneumoperitoneum or free fluid. VASCULATURE: No evidence of aortic aneurysm. MUSCULOSKELETAL: No acute osseous abnormalities LYMPH NODES: No evidence for lymphadenopathy. SOFT TISSUE/ABDOMINAL WALL: Few foci of gas within the left anterior bowel wall subcutaneous tissues likely related to recent surgery. IMPRESSION: Postsurgical changes right oophorectomy. No CT evidence for complication. No other evidence for acute abdominal/pelvic process. [facility], , 04/05/2024 1:31 PM
[2024-04-05] MEDS: ACETAMINOPHEN TAB 325 MG TAB PO STA (14:06)
[2024-04-05 14:10] VITALS: RESP 18
[2024-04-05 15:32] VITALS: BP 131/70; PULSE 94
== END 2024-04-05 15:52 | disposition home or self-care (01) ==
LOC: EC 09:35
DX: R10.31 Right lower quadrant pain (principal); Z90.721 Acquired absence of ovaries, unilateral; F17.290 Nicotine dependence, other tobacco product, uncomplicated
CPT/HCPCS: 36415; 80053; 83605; 85025; 84702; 74177; 99284; 96374; 96375; 96376; J2405; J1171; Q9967

== ENCOUNTER 2024-04-09 14:39 | Emergency (ER) | payer OTHER ==
--- NOTE | 2024-04-09 15:33 | ED ---
General Adult HPI - General Chief complaint: Recheck/Abnormal Lab/Rx Stated complaint: post op pain Time Seen by Provider: 04/09/24 15:06 Source: patient, EMS Mode of arrival: EMS Limitations: no limitations - History of Present Illness Initial comments: Dictation was produced using [employer] dictation software. please excuse any grammatical, word or spelling errors. Chief Complaint: 29-year-old female with abdominal pain History of Present Illness: Patient 29-year-old female presents with lower abdominal pain. Had surgery 6 days ago for torsed ovary performed by Dr. Kimberly Smallwood. Patient states that yesterday she was in her usual postoperative pain today she states that she woke up from a nap with severe lower abdominal pain slightly to the right. States that she had her right ovary and right fallopian tube removed. States that she also had some bleeding when wiping herself after going to the bathroom. Denies any fevers. Denies any constitutional symptoms. She does report some chills. The ROS documented in this emergency department record has been reviewed and confirmed by me. Those systems with pertinent positive or negative responses have been documented in the HPI. All other systems are other negative and/or noncontributory. - Related Data Home Medications Medication Instructions Recorded Confirmed Prazosin HCl [Minipress] 2 mg PO HS 04/03/24 04/03/24 Sertraline [Zoloft] 100 mg PO DAILY 04/03/24 04/03/24 clonazePAM [KlonoPIN] 0.5 mg PO BID PRN 04/03/24 04/03/24 Previous Rx's Medication Instructions Recorded Ibuprofen [Motrin] 600 mg PO Q6HR PRN tab 01/15/24 Acetaminophen Tab [Tylenol] 650 mg PO Q6H PRN #30 tab 04/04/24 Docusate [Colace] 100 mg PO BID PRN #60 capsule 04/04/24 Ibuprofen [Motrin] 600 mg PO Q6HR PRN #30 tab 04/04/24 oxyCODONE HCL [Roxicodone] 5 mg PO Q6HR PRN 3 Days #12 tab 04/04/24 Allergies Allergy/AdvReac Type Severity Reaction Status Date / Time No Known Allergies Allergy Verified 04/09/24 14:46 Review of Systems ROS Statement: Those systems with pertinent positive or pertinent negative responses have been documented in the HPI. ROS Other: All systems not noted in ROS Statement are negative. Past Medical History Past Medical History: Asthma, Hypertension Additional Past Medical History / Comment(s): IBS History of Any Multi-Drug Resistant Organisms: None Reported Past Surgical History: Section, Cholecystectomy Additional Past Surgical History / Comment(s): flopian tube removed Past Anesthesia/Blood Transfusion Reactions: No Reported Reaction Past Psychological History: Anxiety, Depression, PTSD Smoking Status: Current every day smoker, Vaper Past Alcohol Use History: None Reported Past Drug Use History: Marijuana - Past Family History Father Family Medical History: Hypertension Additional Family Medical History / Comment(s): INSOMNIA General Exam - General Exam Comments Initial Comments: PHYSICAL EXAM: General Impression: Alert and oriented x3, acute distress secondary to pain HEENT: Normocephalic atraumatic, extra-ocular movements intact, pupils equal and reactive to light bilaterally, mucous membranes moist. Cardiovascular: Heart regular rate and rhythm Chest: Able to complete full sentences, no retractions, no tachypnea Abdomen: abdomen soft, severe tenderness to the lower abdomen, surgical sites clean dry and intact, non-distended, no organomegaly Musculoskeletal: Pulses present and equal in all extremities, no peripheral edema Motor: no focal deficits noted Neurological: CN II-XII grossly intact, no focal motor or sensory deficits noted Skin: Intact with no visualized rashes Psych: Normal affect and mood Limitations: no limitations Course Vital Signs 04/09/24 04/09/24 04/09/24 14:41 15:44 16:56 Temperature 98.4 F Pulse Rate 124 H 84 90 Respiratory 18 20 18 Rate Blood Pressure 136/101 118/69 139/84 O2 Sat by Pulse 97 97 95 Oximetry Medical Decision Making - Medical Decision Making Was pt. sent in by a medical professional or institution (, PA, BILINGUAL TRAINER, urgent care, hospital, or prison...) When possible be specific @ -No Did you speak to anyone other than the patient for history (EMS, parent, family, police, friend...)? What history was obtained from this source @ -No Did you review nursing and triage notes (agree or disagree)? Why? @ -I reviewed and agree with nursing and triage notes Were old charts reviewed (outside hosp., previous admission, EMS record, old EKG, old radiological studies, urgent care reports/EKG's, prison records)? Report findings @ -Reviewed performed showing operative report from 04-03-2024 patient had right salpingo-oophorectomy and lysis of adhesions Differential Diagnosis (chest pain, altered mental status, abdominal pain women, abdominal pain men, vaginal bleeding, musculoskeletal, weakness, fever, dyspnea, syncope, headache, dizziness, GI bleed, back pain, seizure, CVA, palpatations, mental health)? @ -Differential Abdominal Pain Women: Appendicitis, Cholecystitis, diverticulosis, ischemic bowel, pancreatitis, hepatitis, UTI, gastroenteritis, AAA, incarcerated hernia, bowel obstruction, constipation, inflammatory bowel, hepatitis, peptic ulcer disease, splenic infarction, perforated viscus, vulvitis, ovarian torsion, PID, kidney stone, placenta abruption, this is not meant to be an all-inclusive list EKG interpreted by me (3pts min.). @ -None done X-rays interpreted by me (1pt min.). @ -None done CT interpreted by me (1pt min.). @ -CT of the ab pelvis with contrast shows no acute processes. U/S interpreted by me (1pt. min.). @ -None done What testing was considered but not performed or refused? (CT, X-rays, U/S, labs)? Why? @ -None What meds were considered but not given or refused? Why? @ -None Was smoking cessation discussed for >3mins.? @ -No Were there social determinants of health that impacted care today? How? (Homelessness, low income, unemployed, alcoholism, drug addiction, transportation, low edu. Level, literacy, decrease access to med. care, penitentiary, rehab)? @ -No Was there de-escalation of care discussed even if they declined (Discuss DNR or withdrawal of care, Hospice)? DNR status @ -No What co-morbidities impacted this encounter? (DM, HTN, Smoking, COPD, CAD, Cancer, CVA, ARF, Chemo, Hep., AIDS, mental health diagnosis, sleep apnea, morbid obesity)? @ -Recent pelvic surgery Was patient admitted / discharged? Hospital course, mention meds given and route , prescriptions, significant lab abnormalities, going to OR and other pertinent info. @ -29-year-old female presents with postoperative abdominal pain. Vital signs upon arrival are within acceptable limits. Laboratory evaluation obtained. Mild leukocytosis 12.6. Rest of labs unremarkable. CT imaging shows no acute processes. Patient given analgesics with improvement of her symptoms. Patient agreeable for discharge advised to follow-up closely with gynecology. Did you discuss the management of the patient with other professionals (professionals i.e. , PA, BILINGUAL TRAINER, lab, RT, psych nurse, social worker palliative care, environmental tech, teacher, chief business development officer, piano case and bench assembler)? Give summary @ -No Was critical care preformed (if so, how long)? @ -No Undiagnosed new problem with uncertain prognosis? @ -No Drug Therapy requiring intensive monitoring for toxicity (Heparin, Nitro, Insulin, Cardizem)? @ -No Were any procedures done? @ -No Diagnosis/symptom? Acute, or Chronic, or Acute on Chronic? Uncomplicated (without systemic symptoms) or Complicated (systemic symptoms)? @ -Postoperative abdominal pain Side effects of treatment? @ -No Exacerbation, Progression, or Severe Exacerbation? @ -No Poses a threat to life or bodily function? How? (Chest pain, [place], [place], pneumonia, PE, COPD, DKA, ARF, appy, cholecystitis, CVA, Diverticulitis, Homicidal, Suicidal, threat to staff... and all critical care pts) @ -No - Lab Data Result diagrams: 04/09/24 15:52 04/09/24 15:52 Lab Results 04/09/24 04/09/24 04/09/24 Range/Units 15:35 15:52 15:52 WBC 12.6 H (3.8-10.6) k/uL RBC 4.95 (3.80-5.40) m/uL Hgb 14.6 (11.4-16.0) gm/dL Hct 45.0 (34.0-46.0) % MCV 90.9 (80.0-100.0) fL MCH 29.5 (25.0-35.0) pg MCHC 32.4 (31.0-37.0) g/dL RDW 13.9 (11.5-15.5) % Plt Count 370 (150-450) k/uL MPV 7.7 Neutrophils % 61 % Lymphocytes % 29 % Monocytes % 6 % Eosinophils % 2 % Basophils % 0 % Neutrophils # 7.7 (1.3-7.7) k/uL Lymphocytes # 3.7 (1.0-4.8) k/uL Monocytes # 0.8 (0-1.0) k/uL Eosinophils # 0.2 (0-0.7) k/uL Basophils # 0.0 (0-0.2) k/uL PT (10.0-12.5) sec INR (<1.2) APTT (22.0-30.0) sec Sodium 136 L (137-145) mmol/L Potassium 4.9 (3.5-5.1) mmol/L Chloride 105 (98-107) mmol/L Carbon Dioxide 19 L (22-30) mmol/L Anion Gap 12 mmol/L BUN 15 (7-17) mg/dL Creatinine 0.81 (0.52-1.04) mg/dL Est GFR (CKD-EPI)AfAm >90 (>60 ml/min/1.73 sqM) Est GFR (CKD-EPI)NonAf >90 (>60 ml/min/1.73 sqM) Glucose 91 (74-99) mg/dL Calcium 9.6 (8.4-10.2) mg/dL Total Bilirubin 0.6 (0.2-1.3) mg/dL AST 18 (14-36) U/L ALT 23 (4-34) U/L Alkaline Phosphatase 94 (38-126) U/L Total Protein 7.7 (6.3-8.2) g/dL Albumin 4.6 (3.5-5.0) g/dL Blood Type A Negative Blood Type Confirm Blood Type Recheck No Previous Record Bld Type Recheck Status CABO Indicated Antibody Screen NEGATIVE Spec Expiration Date 04/12/2024 - 233404/09/24 04/09/24 Range/Units 16:14 16:54 WBC (3.8-10.6) k/uL RBC (3.80-5.40) m/uL Hgb (11.4-16.0) gm/dL Hct (34.0-46.0) % MCV (80.0-100.0) fL MCH (25.0-35.0) pg MCHC (31.0-37.0) g/dL RDW (11.5-15.5) % Plt Count (150-450) k/uL MPV Neutrophils % % Lymphocytes % % Monocytes % % Eosinophils % % Basophils % % Neutrophils # (1.3-7.7) k/uL Lymphocytes # (1.0-4.8) k/uL Monocytes # (0-1.0) k/uL Eosinophils # (0-0.7) k/uL Basophils # (0-0.2) k/uL PT 10.1 (10.0-12.5) sec INR 0.9 (<1.2) APTT 24.0 (22.0-30.0) sec Sodium (137-145) mmol/L Potassium (3.5-5.1) mmol/L Chloride (98-107) mmol/L Carbon Dioxide (22-30) mmol/L Anion Gap mmol/L BUN (7-17) mg/dL Creatinine (0.52-1.04) mg/dL Est GFR (CKD-EPI)AfAm (>60 ml/min/1.73 sqM) Est GFR (CKD-EPI)NonAf (>60 ml/min/1.73 sqM) Glucose (74-99) mg/dL Calcium (8.4-10.2) mg/dL Total Bilirubin (0.2-1.3) mg/dL AST (14-36) U/L ALT (4-34) U/L Alkaline Phosphatase (38-126) U/L Total Protein (6.3-8.2) g/dL Albumin (3.5-5.0) g/dL Blood Type Blood Type Confirm A Negative Blood Type Recheck Bld Type Recheck Status Antibody Screen Spec Expiration Date Disposition Clinical Impression: Abdominal pain Disposition: HOME SELF-CARE Condition: Fair Instructions (If sedation given, give patient instructions): Abdominal Pain (ED) Is patient prescribed a controlled substance at d/c from ED?: No Referrals: Sophia Rutledge MD [STAFF PHYSICIAN] - 1-2 days Time of Disposition: 17:55
[2024-04-09] MEDS: HYDROmorphone 1 MG/ML 1 ML SYRINGE IVP STA (15:49)
[2024-04-09] MEDS: SODIUM CHLORIDE 0.9% 1,000 ML IV STA (15:49)
[2024-04-09 16:07] LABS: Basophils % (A) 0 %; Eosinophils # (A) 0.2 k/uL (0-0.7); Eosinophils % (A) 2 %; HGB 14.6 gm/dL (11.4-16.0); Lymphocytes # (A) 3.7 k/uL (1.0-4.8); Lymphocytes % (A) 29 %; MCH 29.5 pg (25.0-35.0); MCHC 32.4 g/dL (31.0-37.0); MCV 90.9 fL (80.0-100.0); Mean Platelet Volume 7.7; Monocytes # (A) 0.8 k/uL (0-1.0); Monocytes % (A) 6 %; Neutrophils # (A) 7.7 k/uL (1.3-7.7); Neutrophils % (A) 61 %; Platelet Count 370 k/uL (150-450); RBC 4.95 m/uL (3.80-5.40); RDW 13.9 % (11.5-15.5); WBC 12.6 k/uL (3.8-10.6)
[2024-04-09 16:16] LABS: ALT 23 U/L (4-34); AST 18 U/L (14-36); African American GFR (CKD) >90 (>60 ml/min/1.73 sqM); Albumin 4.6 g/dL (3.5-5.0); Alkaline Phosphatase 94 U/L (38-126); Anion Gap 12 mmol/L; Blood Urea Nitrogen 15 mg/dL (7-17); Calcium 9.6 mg/dL (8.4-10.2); Carbon Dioxide 19 mmol/L (22-30); Chloride 105 mmol/L (98-107); Glucose 91 mg/dL (74-99); Non-African American GFR(CKD) >90 (>60 ml/min/1.73 sqM); Potassium 4.9 mmol/L (3.5-5.1); Sodium 136 mmol/L (137-145); Total Bilirubin 0.6 mg/dL (0.2-1.3); Total Protein 7.7 g/dL (6.3-8.2)
[2024-04-09 16:57] VITALS: RESP 18
[2024-04-09 17:15] LABS: INR 0.9 (<1.2); Prothrombin Time 10.1 sec (10.0-12.5)
--- NOTE | 2024-04-09 17:36 | CT ---
EXAMINATION TYPE: CT abdomen pelvis w con CT DLP: 2188.9 mGycm, Automated exposure control for dose reduction was used. DATE OF EXAM: 04/09/2024 5:21 PM COMPARISON: CT abdomen pelvis 04/05/2024, pelvic ultrasound 04/03/2024 CLINICAL INDICATION:Female, 29 years old with history of post operative abdominal pain; Right side ab d. pain, surgery x 6 days ago. TECHNIQUE: Standard CT of the abdomen and pelvis following the administration of 100 cc of Isovue 3 00 IV contrast material. Coronal and sagittal reformats were performed. FINDINGS: LOWER CHEST: Posterior dependent subsegmental atelectasis is noted. ABDOMEN LIVER: Unremarkable GALLBLADDER AND BILE DUCTS: The gallbladder is surgically absent. No biliary ductal dilatation. PANCREAS: Unremarkable. SPLEEN: Unremarkable. ADRENAL GLANDS: Unremarkable. KIDNEYS AND URETERS: No evidence of hydronephrosis or renal calculus. The kidneys enhance symmetrical ly. Contrast is demonstrated within both collecting systems on the delayed phase. PELVIS BLADDER: Unremarkable REPRODUCTIVE: Anteverted appearance of the uterus with IUD in place. Post surgical changes from right oophorectomy. Trace stranding in this region and within the anterior pelvis. No organized fluid bhupinder ection. ABDOMEN & PELVIS STOMACH AND BOWEL: Stomach and duodenum are unremarkable. The appendix is within normal limits. No ev idence of bowel obstruction. PERITONEUM: No evidence of pneumoperitoneum or free fluid. VASCULATURE: No evidence of aortic aneurysm. MUSCULOSKELETAL: No acute osseous abnormalities LYMPH NODES: No evidence for lymphadenopathy. SOFT TISSUE/ABDOMINAL WALL: No organized fluid collection. Trace stranding within the left lower ante rior abdominal subcutaneous tissues. Tiny fat filled umbilical hernia. IMPRESSION: Postsurgical changes right oophorectomy. No CT evidence for complication. No other evidence for acute abdominal/pelvic process. No significant change from recent CT. [facility], , 04/09/2024 5:34 PM
[2024-04-09] MEDS: ACETAMINOPHEN TAB 500 MG TAB PO STA (18:11)
[2024-04-09] MEDS: ONDANSETRON 4 MG/2 ML VIAL IVP STA (18:13)
[2024-04-09] MEDS: HYDROmorphone 0.5 MG/0.5 ML SYRINGE IVP STA (18:13)
--- NOTE | 2024-04-09 18:16 | ED ---
Medical Decision Making - Lab Data Result diagrams: 04/09/24 15:52 04/09/24 15:52 Lab Results 04/09/24 04/09/24 04/09/24 Range/Units 15:35 15:52 15:52 WBC 12.6 H (3.8-10.6) k/uL RBC 4.95 (3.80-5.40) m/uL Hgb 14.6 (11.4-16.0) gm/dL Hct 45.0 (34.0-46.0) % MCV 90.9 (80.0-100.0) fL MCH 29.5 (25.0-35.0) pg MCHC 32.4 (31.0-37.0) g/dL RDW 13.9 (11.5-15.5) % Plt Count 370 (150-450) k/uL MPV 7.7 Neutrophils % 61 % Lymphocytes % 29 % Monocytes % 6 % Eosinophils % 2 % Basophils % 0 % Neutrophils # 7.7 (1.3-7.7) k/uL Lymphocytes # 3.7 (1.0-4.8) k/uL Monocytes # 0.8 (0-1.0) k/uL Eosinophils # 0.2 (0-0.7) k/uL Basophils # 0.0 (0-0.2) k/uL PT (10.0-12.5) sec INR (<1.2) APTT (22.0-30.0) sec Sodium 136 L (137-145) mmol/L Potassium 4.9 (3.5-5.1) mmol/L Chloride 105 (98-107) mmol/L Carbon Dioxide 19 L (22-30) mmol/L Anion Gap 12 mmol/L BUN 15 (7-17) mg/dL Creatinine 0.81 (0.52-1.04) mg/dL Est GFR (CKD-EPI)AfAm >90 (>60 ml/min/1.73 sqM) Est GFR (CKD-EPI)NonAf >90 (>60 ml/min/1.73 sqM) Glucose 91 (74-99) mg/dL Calcium 9.6 (8.4-10.2) mg/dL Total Bilirubin 0.6 (0.2-1.3) mg/dL AST 18 (14-36) U/L ALT 23 (4-34) U/L Alkaline Phosphatase 94 (38-126) U/L Total Protein 7.7 (6.3-8.2) g/dL Albumin 4.6 (3.5-5.0) g/dL Blood Type A Negative Blood Type Confirm Blood Type Recheck No Previous Record Bld Type Recheck Status CABO Indicated Antibody Screen NEGATIVE Spec Expiration Date 04/12/2024 - 233404/09/24 04/09/24 Range/Units 16:14 16:54 WBC (3.8-10.6) k/uL RBC (3.80-5.40) m/uL Hgb (11.4-16.0) gm/dL Hct (34.0-46.0) % MCV (80.0-100.0) fL MCH (25.0-35.0) pg MCHC (31.0-37.0) g/dL RDW (11.5-15.5) % Plt Count (150-450) k/uL MPV Neutrophils % % Lymphocytes % % Monocytes % % Eosinophils % % Basophils % % Neutrophils # (1.3-7.7) k/uL Lymphocytes # (1.0-4.8) k/uL Monocytes # (0-1.0) k/uL Eosinophils # (0-0.7) k/uL Basophils # (0-0.2) k/uL PT 10.1 (10.0-12.5) sec INR 0.9 (<1.2) APTT 24.0 (22.0-30.0) sec Sodium (137-145) mmol/L Potassium (3.5-5.1) mmol/L Chloride (98-107) mmol/L Carbon Dioxide (22-30) mmol/L Anion Gap mmol/L BUN (7-17) mg/dL Creatinine (0.52-1.04) mg/dL Est GFR (CKD-EPI)AfAm (>60 ml/min/1.73 sqM) Est GFR (CKD-EPI)NonAf (>60 ml/min/1.73 sqM) Glucose (74-99) mg/dL Calcium (8.4-10.2) mg/dL Total Bilirubin (0.2-1.3) mg/dL AST (14-36) U/L ALT (4-34) U/L Alkaline Phosphatase (38-126) U/L Total Protein (6.3-8.2) g/dL Albumin (3.5-5.0) g/dL Blood Type Blood Type Confirm A Negative Blood Type Recheck Bld Type Recheck Status Antibody Screen Spec Expiration Date Disposition Clinical Impression: Abdominal pain Disposition: HOME SELF-CARE Condition: Fair Instructions (If sedation given, give patient instructions): Abdominal Pain (ED) Prescriptions: Ondansetron Odt [Zofran Odt] 4 mg PO Q8HR PRN #12 tab PRN Reason: Nausea Is patient prescribed a controlled substance at d/c from ED?: No Referrals: Sophia Rutledge MD [STAFF PHYSICIAN] - 1-2 days
[2024-04-09] MEDS: ONDANSETRON 4 MG ODT STARTER PACK 2 TAB BTL PO STA (18:22)
[2024-04-09 18:27] VITALS: BP 124/72; PULSE 79; TEMP 97.8
== END 2024-04-09 18:27 | disposition home or self-care (01) ==
LOC: EC 14:39
DX: R10.31 Right lower quadrant pain (principal); G89.18 Other acute postprocedural pain; F17.290 Nicotine dependence, other tobacco product, uncomplicated
CPT/HCPCS: 36415; 86900; 86901; 80053; 85025; 85610; 85730; 86850; 74177; 99284; 96374; 96375; 96361; J2405; J1171; S0119; Q9967

== ENCOUNTER 2024-04-27 09:34 | Emergency (ER) | payer OTHER ==
--- NOTE | 2024-04-27 10:10 | ED ---
Skin/Abscess/FB HPI - General Chief complaint: Skin/Abscess/Foreign Body Stated complaint: Post-op pain Time Seen by Provider: 04/27/24 09:51 Source: patient, RN notes reviewed Mode of arrival: ambulatory Limitations: no limitations - History of Present Illness Initial comments: 29-year-old female presents emergency department chief complaint of concern for infection or trauma her abdominal incision. Patient states that she had her ovary and right fallopian tube removed several weeks ago. She states there is a small crusting of her umbilical incision. She denies any fevers or chills no pain no other complaints. - Related Data Home Medications Medication Instructions Recorded Confirmed Prazosin HCl [Minipress] 2 mg PO HS 04/03/24 04/03/24 Sertraline [Zoloft] 100 mg PO DAILY 04/03/24 04/03/24 clonazePAM [KlonoPIN] 0.5 mg PO BID PRN 04/03/24 04/03/24 Previous Rx's Medication Instructions Recorded Ibuprofen [Motrin] 600 mg PO Q6HR PRN tab 01/15/24 Acetaminophen Tab [Tylenol] 650 mg PO Q6H PRN #30 tab 04/04/24 Docusate [Colace] 100 mg PO BID PRN #60 capsule 04/04/24 Ibuprofen [Motrin] 600 mg PO Q6HR PRN #30 tab 04/04/24 oxyCODONE HCL [Roxicodone] 5 mg PO Q6HR PRN 3 Days #12 tab 04/04/24 Ondansetron Odt [Zofran Odt] 4 mg PO Q8HR PRN #12 tab 04/09/24 Mupirocin 2% Oint [Bactroban 2% 1 applic TOPICAL TID #22 gm 04/27/24 Oint] Allergies Allergy/AdvReac Type Severity Reaction Status Date / Time No Known Allergies Allergy Verified 04/27/24 09:47 Review of Systems ROS Statement: Those systems with pertinent positive or pertinent negative responses have been documented in the HPI. ROS Other: All systems not noted in ROS Statement are negative. Past Medical History Past Medical History: Asthma, Hypertension Additional Past Medical History / Comment(s): IBS History of Any Multi-Drug Resistant Organisms: None Reported Past Surgical History: Section, Cholecystectomy Additional Past Surgical History / Comment(s): flopian tube removed Past Anesthesia/Blood Transfusion Reactions: No Reported Reaction Past Psychological History: Anxiety, Depression, PTSD Smoking Status: Current every day smoker, Vaper Past Alcohol Use History: None Reported Past Drug Use History: Marijuana - Past Family History Father Family Medical History: Hypertension Additional Family Medical History / Comment(s): INSOMNIA General Exam Limitations: no limitations General appearance: alert, in no apparent distress Head exam: Present: atraumatic, normocephalic, normal inspection Respiratory exam: Present: normal lung sounds bilaterally. Absent: respiratory distress, wheezes, rales, rhonchi, stridor Cardiovascular Exam: Present: regular rate, normal rhythm, normal heart sounds. Absent: systolic murmur, diastolic murmur, rubs, gallop, clicks GI/Abdominal exam: Present: soft, normal bowel sounds, other (Healing incisions noted, umbilical incision small opening erythema at the distal end nontender no purulent drainage). Absent: distended, tenderness, guarding, rebound, rigid Course Vital Signs 04/27/24 04/27/24 09:42 10:29 Temperature 98.2 F 98.1 F Pulse Rate 104 H 96 Respiratory 20 18 Rate Blood Pressure 133/81 130/82 O2 Sat by Pulse 97 98 Oximetry Medical Decision Making - Medical Decision Making Was pt. sent in by a medical professional or institution (, [place], [employer], urgent care, hospital, or prison...) When possible be specific @ -No Did you speak to anyone other than the patient for history (EMS, parent, family, police, friend...)? What history was obtained from this source @ -No Did you review nursing and triage notes (agree or disagree)? Why? @ -I reviewed and agree with nursing and triage notes Were old charts reviewed (outside hosp., previous admission, EMS record, old EKG, old radiological studies, urgent care reports/EKG's, prison records)? Report findings @ -No old charts were reviewed Differential Diagnosis (chest pain, altered mental status, abdominal pain women, abdominal pain men, vaginal bleeding, weakness, fever, dyspnea, syncope, headache, dizziness, GI bleed, back pain, seizure, CVA, palpatations, mental health, musculoskeletal)? @ -Cellulitis, wound infection EKG interpreted by me (3pts min.). @ -None X-rays interpreted by me (1pt min.). @ -None done CT interpreted by me (1pt min.). @ -None done U/S interpreted by me (1pt. min.). @ -None done What testing was considered but not performed or refused? (CT, X-rays, U/S, labs)? Why? @ -None What meds were considered but not given or refused? Why? @ -None Did you discuss the management of the patient with other professionals (professionals i.e. DrMadeleine, PA, [employer], lab, RT, psych nurse, social science professor, j2ee android developer, teacher, health promotion officer, case consultant)? Give summary @ -No Was smoking cessation discussed for >3mins.? @ -No Was critical care preformed (if so, how long)? @ -No Were there social determinants of health that impacted care today? How? (Homelessness, low income, unemployed, alcoholism, drug addiction, transportation, low edu. Level, literacy, decrease access to med. care, fpc, rehab)? @ -No Was there de-escalation of care discussed even if they declined (Discuss DNR or withdrawal of care, Hospice)? DNR status @ -No What co-morbidities impacted this encounter? (DM, HTN, Smoking, COPD, CAD, Cancer, CVA, ARF, Chemo, Hep., AIDS, mental health diagnosis, sleep apnea, morbid obesity)? @ -None Was patient admitted / discharged? Hospital course, mention meds given and route, prescriptions, significant lab abnormalities, going to OR and other pertinent info. @Discharge patient has very minimal erythema of the lower incision there is no purulent drainage or fluctuant area. Patient was given Bactroban and discharged in stable condition Undiagnosed new problem with uncertain prognosis? @ -No Drug Therapy requiring intensive monitoring for toxicity (Heparin, Nitro, Insulin, Cardizem)? @ -No Were any procedures done? @ -No Diagnosis/symptom? @ -Incision infection Acute, or Chronic, or Acute on Chronic? @ -Acute Uncomplicated (without systemic symptoms) or Complicated (systemic symptoms)? @ -Uncomplicated Side effects of treatment? @ -No Exacerbation, Progression, or Severe Exacerbation? @ -No Poses a threat to life or bodily function? How? (Chest pain, [place], CA, pneumonia, PE, COPD, DKA, ARF, appy, cholecystitis, CVA, Diverticulitis, Homicidal, Suicidal, threat to staff... and all critical care pts) @ -No Disposition Clinical Impression: Incisional infection Disposition: HOME SELF-CARE Condition: Stable Instructions (If sedation given, give patient instructions): Acute Wound Care (ED) Additional Instructions: Please return to the Emergency Department if symptoms worsen or any other concerns. Prescriptions: Mupirocin 2% Oint [Bactroban 2% Oint] 1 applic TOPICAL TID #22 gm Is patient prescribed a controlled substance at d/c from ED?: No Referrals: Anthony Restrepo MD [Primary Care Provider] - 1-2 days Time of Disposition: 10:10
[2024-04-27 10:31] VITALS: BP 130/82; PULSE 96; RESP 18; TEMP 98.1
== END 2024-04-27 10:31 | disposition home or self-care (01) ==
LOC: EC 09:34
DX: S31.119A Laceration without foreign body of abdominal wall, unspecified quadrant without penetration into peritoneal cavity, initial encounter (principal); G89.18 Other acute postprocedural pain; Z90.721 Acquired absence of ovaries, unilateral; F17.290 Nicotine dependence, other tobacco product, uncomplicated
CPT/HCPCS: 99282